=== PATIENT | male | born 1935 | race Caucasian/White ===

== ENCOUNTER 2020-01-13 12:31 | Observation (INO) ==
[2020-01-13] MEDS ORDERED: Ringers Solution, Lactated 1,000 ML IVC SCH (13:00)
[2020-01-13] MEDS ORDERED: CeFAZolin Syr 2,000MG/20 ML 2,000 MG/20 ML SYRINGE IVPB ONE (13:00)
[2020-01-13] MEDS ORDERED: Acetaminophen IV 1,000 MG/100 ML BAG IVPB ONE (13:28)
[2020-01-13] MEDS ORDERED: *HR* OxyCODONE Immed Rel 5 MG TABLET PO PRN ×2 (13:28→20:31)
[2020-01-13] MEDS ORDERED: Ondansetron 4 MG/2 ML VIAL IVP ONE (13:28)
[2020-01-13] MEDS ORDERED: *HR* HYDROmorphone PF 0.5 MG/0.5 ML SYRINGE IVP PRN (13:28)
[2020-01-13] MEDS ORDERED: *HR* Metoprolol 5 MG/5 ML VIAL IVP PRN (13:28)
[2020-01-13] MEDS ORDERED: *HR* Promethazine 25 MG/ML VIAL IVP PRN (13:28)
[2020-01-13] MEDS ORDERED: *HR* Midazolam HCl 2 MG/2 ML VIAL ONE (13:46)
[2020-01-13] MEDS ORDERED: *HR* Propofol 200 MG/20 ML VIAL IVP ONE (13:46)
[2020-01-13] MEDS ORDERED: *HR* FentaNYL (PF) 100 MCG/2 ML VIAL ONE (13:46)
[2020-01-13] MEDS ORDERED: *HR* Rocuronium Bromide 50 MG/5 ML VIAL ONE (13:53)
[2020-01-13] MEDS ORDERED: Lidocaine HCL 4 ML Topical Solution (Laryng-O-Jet Kit Sterile Pak) TP ONE (13:53)
[2020-01-13] MEDS ORDERED: Ondansetron 4 MG/2 ML VIAL ONE (13:53)
[2020-01-13] MEDS ORDERED: Lidocaine -MPF 2% 2 ML VIAL ONE (13:53)
[2020-01-13] MEDS ORDERED: *HR* PHENYLEPHRINE 1,000 MCG/10 ML SYRINGE IVP ONE (16:00)
[2020-01-13] MEDS ORDERED: Dexamethasone 4 MG/ML VIAL ONE (16:06)
[2020-01-13] MEDS ORDERED: *HR* Labetalol 20 MG/4 ML SYRINGE IVP ONE ×2 (16:21→18:21)
[2020-01-13] MEDS ORDERED: *HR* Labetalol 20 MG/4 ML SYRINGE IVP PRN (18:25)
[2020-01-13] MEDS ORDERED: Ondansetron 4 MG/2 ML VIAL IVP PRN ×2 (20:33→20:53)
[2020-01-13] MEDS ORDERED: 0.9 % Sodium Chloride 1,000 ML IVC SCH ×2 (20:45→21:00)
[2020-01-13] MEDS ORDERED: D5% in 0.45% NACL 1,000 ML IVC SCH (20:48)
[2020-01-13] MEDS: *HR* OxyCODONE Immed Rel 5 MG TABLET PO PRN (21:24)
[2020-01-14] MEDS: *HR* OxyCODONE Immed Rel 5 MG TABLET PO PRN ×2 (03:57→12:46)
[2020-01-14] MEDS ORDERED: *HR* Heparin 5,000 UNIT/ML VIAL SQ SCH ×2 (06:00)
[2020-01-14] MEDS ORDERED: Ascorbic Acid 500 MG TABLET PO SCH (09:00)
[2020-01-14] MEDS ORDERED: atenoloL 50 MG TABLET PO SCH ×2 (09:00)
[2020-01-14 12:31] VITALS: BP 138/76
== END 2020-01-14 16:21 | disposition home or self-care (01) ==
LOC: 2NNU 12:31 → SAMDAY 12:31
PROVIDERS: ADMIT Surgery; ATTEND Surgery

== ENCOUNTER 2020-01-23 21:44 | Inpatient (IN) ==
[2020-01-23] MEDS ORDERED: Isovue-370 500 ML BOTTLE IVP ONE (21:56)
[2020-01-23 23:24] LABS: Prothrombin Time 11.4 Seconds (9.4-12.1)
[2020-01-23 23:27] LABS: Activated Partial Thrombo Time 32.4 Seconds (26.0-36.0)
[2020-01-23 23:28] LABS: Basophils # 0.1 K/mcL (0.0-0.2); Basophils % 0.6 %; Eosinophils # 0.1 K/mcL (0.0-0.6); Eosinophils % 0.7 %; Hematocrit 46.9 % (37.5-50.1); Hemoglobin 14.8 g/dL (12.9-16.9); Immature Granulocytes % 1.3 % (0-4); Lymphocytes # 0.9 K/mcL (0.6-4.6); Lymphocytes % 7.4 %; Mean Corpuscular HGB Conc 31.6 g/dL (31.6-35.5); Mean Corpuscular Hemoglobin 29.3 pg (28.0-33.3); Mean Corpuscular Volume 92.9 fL (83.0-100.0); Mean Platelet Volume 9.1 fL (9.4-12.4); Monocytes # 1.2 K/mcL (0.0-1.3); Monocytes % 9.7 %; Neutrophils # 9.8 K/mcL (1.6-8.9); Platelet Count 323 K/mcL (140-400); Red Blood Count 5.05 M/mcL (4.19-5.50); Red Cell Distribution Width 16.2 % (11.5-14.5); Segmented Neutrophils % 80.3 %; White Blood Count 12.2 K/mcL (4.3-11.1)
[2020-01-23 23:38] LABS: BUN/Creatinine Ratio 45 (6-26); Blood Urea Nitrogen 48 mg/dL (8-23); Calcium 9.1 mg/dL (8.6-10.3); Carbon Dioxide 19 mEq/L (23-29); Chloride 105 mEq/L (98-107); Glucose 101 mg/dL (70-105); Osmolality,Calculated 299 (280-300); Potassium 4.5 mEq/L (3.5-5.1); Sodium 138 mEq/L (136-145); eGFR For African Americans > 60 (> 60); eGFR For Non-African Americans > 60 (> 60)
[2020-01-24] MEDS ORDERED: 0.9 % Sodium Chloride 1,000 ML IV ONE (00:31)
[2020-01-24 00:38] LABS: VBG HCO3 23 mEq/L (21-27); VBG PCO2 46 mmHg (41-51); VBG PH 7.31 pH Units (7.32-7.42); VBG PO2 53 mmHg (25-50)
[2020-01-24 01:11] LABS: Bacteria,Urine Few per hpf (None-Few); Bilirubin,Urine Small (Negative); Blood,Urine Negative (Negative); Clarity,Urine Clear (Clear); Color,Urine Yellow (Yellow); Glucose,Urine (UA) Normal (Normal); Hyaline Casts,Urine Few per lpf (None Seen); Ketones,Urine 40 mg/dL (Negative); Leukocyte Esterase,Urine Negative (Negative); Mucus,Urine Few per lpf (None-Few); Nitrite,Urine Negative (Negative); Protein,Urine 30 mg/dL (Neg-Trace); RBC,Urine 0-3 per hpf (0-3); Specific Gravity,Urine > 1.030 (1.010-1.025); Sperm,Urine Present (None Seen)
[2020-01-24] MEDS ORDERED: Lidocaine/EPI 1:100k 1% 30 ML VIAL INFILT ONE (01:21)
[2020-01-24 01:49] LABS: Alanine Aminotransferase 35 Units/L (7-52); Albumin 3.5 g/dL (3.5-5.7); Albumin/Globulin Ratio 1.4 (1.1-2.2); Alkaline Phosphatase 56 Units/L (34-104); Aspartate Amino Transferase 27 Units/L (13-39); Bilirubin,Indirect 1.7 mg/dL (0.0-1.0); Bilirubin,Total 2.7 mg/dL (0.3-1.0); Globulin 2.5 g/dL (2.4-3.5); Lipase 17 Units/L (11-82)
[2020-01-24] MEDS ORDERED: Naloxone 0.4 MG/ML INJ IVP PRN (07:16)
[2020-01-24 07:58] LABS: Basophils # 0.1 K/mcL (0.0-0.2); Basophils % 0.6 %; Eosinophils # 0.1 K/mcL (0.0-0.6); Eosinophils % 0.9 %; Hematocrit 41.4 % (37.5-50.1); Hemoglobin 13.6 g/dL (12.9-16.9); Immature Granulocytes % 1.2 % (0-4); Lymphocytes % 9.7 %; Mean Corpuscular HGB Conc 32.9 g/dL (31.6-35.5); Mean Corpuscular Volume 91.2 fL (83.0-100.0); Mean Platelet Volume 9.5 fL (9.4-12.4); Monocytes # 1.1 K/mcL (0.0-1.3); Monocytes % 10.7 %; Neutrophils # 8.1 K/mcL (1.6-8.9); Platelet Count 229 K/mcL (140-400); Red Blood Count 4.54 M/mcL (4.19-5.50); Red Cell Distribution Width 16.2 % (11.5-14.5); Segmented Neutrophils % 76.9 %; White Blood Count 10.5 K/mcL (4.3-11.1)
[2020-01-24 08:07] LABS: BUN/Creatinine Ratio 43 (6-26); Blood Urea Nitrogen 42 mg/dL (8-23); Calcium 8.8 mg/dL (8.6-10.3); Carbon Dioxide 18 mEq/L (23-29); Chloride 107 mEq/L (98-107); Glucose 96 mg/dL (70-105); Osmolality,Calculated 298 (280-300); Potassium 3.9 mEq/L (3.5-5.1); Sodium 139 mEq/L (136-145); eGFR For African Americans > 60 (> 60); eGFR For Non-African Americans > 60 (> 60)
[2020-01-24 08:19] LABS: Platelet Estimate Normal (Normal)
[2020-01-24] MEDS ORDERED: *HR* Dextrose 50 % in Water (Vial) 50 ML VIAL IVP PRN (08:29)
[2020-01-24] MEDS ORDERED: D5% in Water 1,000 ML IVC PRN (08:29)
[2020-01-24] MEDS ORDERED: Dextrose Gel 15 GM/37.5 ML TUBE PO PRN ×2 (08:29)
[2020-01-24] MEDS ORDERED: *HR* Metformin 500 MG TABLET PO SCH (09:00)
[2020-01-24] MEDS: Vitamin B Complex/Vit C/Vit E 1 EACH TABLET PO SCH (09:53)
[2020-01-24] MEDS: Cholecalciferol (D-3) 1,000 UNIT (25MCG) TABLET PO SCH (09:53)
[2020-01-24] MEDS: Ascorbic Acid 500 MG TABLET PO SCH (09:53)
[2020-01-24] MEDS: atenoloL 50 MG TABLET PO SCH (09:53)
[2020-01-24] MEDS: Insulin LISPRO 300 UNITS/3 ML VIAL SQ SCH ×2 (11:49→16:25)
[2020-01-24] MEDS: Latanoprost 2.5 ML BOTTLE BOTH EYES SCH (19:24)
[2020-01-25 06:37] LABS: Basophils # 0.1 K/mcL (0.0-0.2); Basophils % 0.6 %; Eosinophils # 0.1 K/mcL (0.0-0.6); Eosinophils % 0.6 %; Hematocrit 45.5 % (37.5-50.1); Hemoglobin 14.6 g/dL (12.9-16.9); Immature Granulocytes % 1.1 % (0-4); Lymphocytes # 1.1 K/mcL (0.6-4.6); Lymphocytes % 8.8 %; Mean Corpuscular HGB Conc 32.1 g/dL (31.6-35.5); Mean Corpuscular Hemoglobin 29.2 pg (28.0-33.3); Mean Platelet Volume 9.4 fL (9.4-12.4); Monocytes % 7.9 %; Neutrophils # 10.3 K/mcL (1.6-8.9); Platelet Count 269 K/mcL (140-400); Red Cell Distribution Width 16.3 % (11.5-14.5); White Blood Count 12.7 K/mcL (4.3-11.1)
[2020-01-25 06:53] LABS: BUN/Creatinine Ratio 39 (6-26); Blood Urea Nitrogen 39 mg/dL (8-23); Calcium 9.5 mg/dL (8.6-10.3); Carbon Dioxide 21 mEq/L (23-29); Chloride 109 mEq/L (98-107); Glucose 120 mg/dL (70-105); Osmolality,Calculated 309 (280-300); Sodium 144 mEq/L (136-145); eGFR For African Americans > 60 (> 60); eGFR For Non-African Americans > 60 (> 60)
[2020-01-25 06:54] LABS: Albumin 3.7 g/dL (3.5-5.7); Albumin/Globulin Ratio 1.4 (1.1-2.2); Bilirubin,Direct 0.5 mg/dL (0.0-0.2); Bilirubin,Indirect 1.1 mg/dL (0.0-1.0); Bilirubin,Total 1.6 mg/dL (0.3-1.0); Globulin 2.6 g/dL (2.4-3.5); Total Protein 6.3 g/dL (6.4-8.9)
[2020-01-25] MEDS: Insulin LISPRO 300 UNITS/3 ML VIAL SQ SCH ×3 (09:22→16:58)
[2020-01-25] MEDS: Cholecalciferol (D-3) 1,000 UNIT (25MCG) TABLET PO SCH (09:27)
[2020-01-25] MEDS: Ascorbic Acid 500 MG TABLET PO SCH (09:27)
[2020-01-25] MEDS: atenoloL 50 MG TABLET PO SCH (09:27)
[2020-01-25] MEDS: Vitamin B Complex/Vit C/Vit E 1 EACH TABLET PO SCH (09:27)
[2020-01-25] MEDS: *HR* Heparin 5,000 UNIT/ML VIAL SQ SCH (16:58)
[2020-01-25] MEDS: Latanoprost 2.5 ML BOTTLE BOTH EYES SCH (20:20)
[2020-01-26 02:38] LABS: Basophils # 0.1 K/mcL (0.0-0.2); Basophils % 0.4 %; Eosinophils # 0.2 K/mcL (0.0-0.6); Eosinophils % 1.6 %; Hematocrit 47.4 % (37.5-50.1); Hemoglobin 15.1 g/dL (12.9-16.9); Immature Granulocytes % 1.1 % (0-4); Lymphocytes # 1.1 K/mcL (0.6-4.6); Lymphocytes % 7.9 %; Mean Corpuscular HGB Conc 31.9 g/dL (31.6-35.5); Mean Corpuscular Hemoglobin 29.8 pg (28.0-33.3); Mean Corpuscular Volume 93.5 fL (83.0-100.0); Mean Platelet Volume 9.6 fL (9.4-12.4); Monocytes % 7.1 %; Neutrophils # 11.6 K/mcL (1.6-8.9); Platelet Count 274 K/mcL (140-400); Red Blood Count 5.07 M/mcL (4.19-5.50); Red Cell Distribution Width 16.3 % (11.5-14.5); Segmented Neutrophils % 81.9 %; White Blood Count 14.1 K/mcL (4.3-11.1)
[2020-01-26 02:54] LABS: Alanine Aminotransferase 46 Units/L (7-52); Albumin 3.6 g/dL (3.5-5.7); Albumin/Globulin Ratio 1.4 (1.1-2.2); Alkaline Phosphatase 64 Units/L (34-104); Aspartate Amino Transferase 34 Units/L (13-39); BUN/Creatinine Ratio 29 (6-26); Bilirubin,Total 1.3 mg/dL (0.3-1.0); Blood Urea Nitrogen 32 mg/dL (8-23); Calcium 9.7 mg/dL (8.6-10.3); Carbon Dioxide 28 mEq/L (23-29); Chloride 106 mEq/L (98-107); Globulin 2.5 g/dL (2.4-3.5); Glucose 133 mg/dL (70-105); Osmolality,Calculated 305 (280-300); Potassium 3.8 mEq/L (3.5-5.1); Sodium 143 mEq/L (136-145); Total Protein 6.1 g/dL (6.4-8.9); eGFR For African Americans > 60 (> 60); eGFR For Non-African Americans > 60 (> 60)
[2020-01-26 02:59] LABS: Magnesium 1.9 mg/dL (1.6-2.6)
[2020-01-26] MEDS: *HR* Heparin 5,000 UNIT/ML VIAL SQ SCH ×2 (05:36→17:04)
[2020-01-26] MEDS: Insulin LISPRO 300 UNITS/3 ML VIAL SQ SCH ×3 (08:22→17:04)
[2020-01-26] MEDS: atenoloL 50 MG TABLET PO SCH (09:11)
[2020-01-26] MEDS: Psyllium 1 PACKET POWD.PACK PO SCH ×3 (09:11→20:36)
[2020-01-26] MEDS: Vitamin B Complex/Vit C/Vit E 1 EACH TABLET PO SCH (09:11)
[2020-01-26] MEDS: Ascorbic Acid 500 MG TABLET PO SCH (09:11)
[2020-01-26] MEDS: Cholecalciferol (D-3) 1,000 UNIT (25MCG) TABLET PO SCH (09:11)
[2020-01-26] MEDS: Latanoprost 2.5 ML BOTTLE BOTH EYES SCH (20:36)
[2020-01-27] MEDS: *HR* Heparin 5,000 UNIT/ML VIAL SQ SCH ×2 (05:25→18:02)
[2020-01-27 09:16] LABS: Basophils % 0.2 %; Eosinophils # 0.1 K/mcL (0.0-0.6); Eosinophils % 0.6 %; Hematocrit 44.5 % (37.5-50.1); Hemoglobin 14.4 g/dL (12.9-16.9); Immature Granulocytes % 0.9 % (0-4); Lymphocytes # 1.1 K/mcL (0.6-4.6); Lymphocytes % 6.6 %; Mean Corpuscular HGB Conc 32.4 g/dL (31.6-35.5); Mean Corpuscular Hemoglobin 29.4 pg (28.0-33.3); Mean Platelet Volume 9.2 fL (9.4-12.4); Monocytes # 1.1 K/mcL (0.0-1.3); Monocytes % 6.6 %; Neutrophils # 13.7 K/mcL (1.6-8.9); Platelet Count 274 K/mcL (140-400); Red Blood Count 4.89 M/mcL (4.19-5.50); Red Cell Distribution Width 15.9 % (11.5-14.5); Segmented Neutrophils % 85.1 %; White Blood Count 16.1 K/mcL (4.3-11.1)
[2020-01-27] MEDS: Insulin LISPRO 300 UNITS/3 ML VIAL SQ SCH ×3 (09:26→17:58)
[2020-01-27] MEDS: Psyllium 1 PACKET POWD.PACK PO SCH ×3 (09:27→19:27)
[2020-01-27] MEDS: Ascorbic Acid 500 MG TABLET PO SCH (09:31)
[2020-01-27] MEDS: atenoloL 50 MG TABLET PO SCH (09:31)
[2020-01-27] MEDS: Vitamin B Complex/Vit C/Vit E 1 EACH TABLET PO SCH (09:31)
[2020-01-27] MEDS: Cholecalciferol (D-3) 1,000 UNIT (25MCG) TABLET PO SCH (09:31)
[2020-01-27] MEDS: Latanoprost 2.5 ML BOTTLE BOTH EYES SCH (19:26)
[2020-01-28] MEDS: *HR* OxyCODONE Immed Rel 5 MG TABLET PO PRN ×2 (02:04→11:18)
[2020-01-28] MEDS: *HR* Heparin 5,000 UNIT/ML VIAL SQ SCH ×2 (05:25→17:02)
[2020-01-28] MEDS: Insulin LISPRO 300 UNITS/3 ML VIAL SQ SCH ×3 (07:27→17:02)
[2020-01-28] MEDS: Ascorbic Acid 500 MG TABLET PO SCH (07:33)
[2020-01-28] MEDS: Psyllium 1 PACKET POWD.PACK PO SCH ×2 (07:34→15:55)
[2020-01-28] MEDS: Vitamin B Complex/Vit C/Vit E 1 EACH TABLET PO SCH (07:34)
[2020-01-28] MEDS: atenoloL 50 MG TABLET PO SCH (07:34)
[2020-01-28] MEDS: Cholecalciferol (D-3) 1,000 UNIT (25MCG) TABLET PO SCH (07:34)
[2020-01-28 08:21] LABS: Mean Platelet Volume 10.4 fL (9.4-12.4)
[2020-01-28 08:23] LABS: Hemoglobin 16.2 g/dL (12.9-16.9); Mean Corpuscular HGB Conc 33.1 g/dL (31.6-35.5); Mean Corpuscular Hemoglobin 30.2 pg (28.0-33.3); Mean Corpuscular Volume 91.2 fL (83.0-100.0); Platelet Count 198 K/mcL (140-400); Red Blood Count 5.37 M/mcL (4.19-5.50); Red Cell Distribution Width 15.9 % (11.5-14.5); White Blood Count 28.6 K/mcL (4.3-11.1)
[2020-01-28 08:39] LABS: BUN/Creatinine Ratio 25 (6-26); Blood Urea Nitrogen 27 mg/dL (8-23); Calcium 9.4 mg/dL (8.6-10.3); Carbon Dioxide 24 mEq/L (23-29); Chloride 103 mEq/L (98-107); Glucose 135 mg/dL (70-105); Osmolality,Calculated 291 (280-300); Potassium 3.6 mEq/L (3.5-5.1); Sodium 137 mEq/L (136-145); eGFR For African Americans > 60 (> 60); eGFR For Non-African Americans > 60 (> 60)
[2020-01-28 11:13] VITALS: BP 161/89
[2020-01-28 11:43] LABS: Adenovirus Not Detected (Not Detect); Coronavirus 229E Not Detected (Not Detect); Coronavirus HKU1 Not Detected (Not Detect); Coronavirus NL63 Not Detected (Not Detect); Coronavirus OC43 Not Detected (Not Detect); Human Metapneumovirus Not Detected (Not Detect); Human Rhinovirus/Enterovirus Not Detected (Not Detect); Influenza A Subtype 2009 H1 Not Detected (Not Detect); Influenza B Not Detected (Not Detect); Parainfluenza Virus 1 Not Detected (Not Detect); Parainfluenza Virus 2 Not Detected (Not Detect)
[2020-01-28 11:44] LABS: Bordetella Pertussis Not Detected (Not Detect); Chlamydophila pneumoniae Not Detected (Not Detect); Mycoplasma pneumoniae Not Detected (Not Detect); Parainfluenza Virus 3 Not Detected (Not Detect); Parainfluenza Virus 4 Not Detected (Not Detect); Respiratory Syncytial Virus Not Detected (Not Detect)
== END 2020-01-28 17:56 | DRG 920 ==
LOC: EMEROOARM 21:44 → 3BNU 21:44 → SUATTDRO 01-24 07:16 → 3BNU 01-24 08:18 → SUATTDRO 01-25 12:58
PROVIDERS: ADMIT Student in an Organized Health Care Education/Training Program; ATTEND Nurse Practitioner Adult Health

== ENCOUNTER 2020-01-29 20:39 | Inpatient (IN) ==
[2020-01-29] MEDS ORDERED: Ondansetron 4 MG/2 ML VIAL IVP PRN (23:06)
[2020-01-29] MEDS ORDERED: Naloxone 0.4 MG/ML INJ IVP PRN (23:06)
[2020-01-29] MEDS ORDERED: SODIUM CHLORIDE 0.9% IVPB SCH (23:45)
[2020-01-29] MEDS ORDERED: VANCOMYCIN IVPB SCH (23:45)
[2020-01-30] MEDS ORDERED: Vancomycin 1,750 MG/517.5 ML IV.SOLN IVPB ONE
[2020-01-30] MEDS: Piperacillin/Tazobactam 3.375 GM in 0.9 % Sodium Chloride Mini Bag 100 ML IVPB SCH ×3 (00:25→21:33)
[2020-01-30] MEDS ORDERED: D5% in Water 1,000 ML IVC PRN ×3 (00:27→21:00)
[2020-01-30] MEDS ORDERED: Dextrose Gel 15 GM/37.5 ML TUBE PO PRN ×6 (00:27→21:00)
[2020-01-30] MEDS ORDERED: *HR* Heparin 5,000 UNIT/ML VIAL IVP ONE (00:27)
[2020-01-30] MEDS ORDERED: *HR* Dextrose 50 % in Water (Vial) 50 ML VIAL IVP PRN ×3 (00:27→21:00)
[2020-01-30] MEDS ORDERED: *HR* Heparin 5,000 UNIT/ML VIAL IVP PRN ×2 (00:27)
[2020-01-30] MEDS ORDERED: Heparin 25,000UNIT/250ML 1/2NS 25,000 UNIT/250 ML IV.SOLN IVC SCH (00:30)
[2020-01-30] MEDS: 0.9 % Sodium Chloride 1,000 ML IVC SCH ×2 (00:41→07:25)
[2020-01-30 01:11] LABS: Bacteria,Urine Few per hpf (None-Few); Bilirubin,Urine Small (Negative); Blood,Urine Trace (Negative); Clarity,Urine Turbid (Clear); Color,Urine Dark-Yellow (Yellow); Glucose,Urine (UA) Normal (Normal); Hyaline Casts,Urine Moderate per lpf (None Seen); Ketones,Urine Negative (Negative); Leukocyte Esterase,Urine Negative (Negative); Mucus,Urine Few per lpf (None-Few); Nitrite,Urine Negative (Negative); PH,Urine 5.5 pH Units (5.0-8.0); Protein,Urine 50 mg/dL (Neg-Trace); Specific Gravity,Urine 1.023 (1.010-1.025); Squamous Epithelial Cell,Urine Few per hpf (None-Few)
[2020-01-30 01:19] LABS: Protein/Creatinine Ratio,Urine 0.58 mg/mg (0.00-0.20); Sodium, Urine 12.3 mEq/L
[2020-01-30 02:51] LABS: Basophils % 0.2 %; Hematocrit 41.4 % (37.5-50.1); Immature Granulocytes % 0.7 % (0-4); Lymphocytes # 0.5 K/mcL (0.6-4.6); Lymphocytes % 2.7 %; Mean Corpuscular HGB Conc 31.4 g/dL (31.6-35.5); Mean Corpuscular Hemoglobin 29.5 pg (28.0-33.3); Mean Corpuscular Volume 93.9 fL (83.0-100.0); Mean Platelet Volume 10.3 fL (9.4-12.4); Monocytes % 4.8 %; Platelet Count 204 K/mcL (140-400); Red Blood Count 4.41 M/mcL (4.19-5.50); Red Cell Distribution Width 16.2 % (11.5-14.5); Segmented Neutrophils % 91.6 %; White Blood Count 19.6 K/mcL (4.3-11.1)
[2020-01-30 02:55] LABS: VBG HCO3 26 mEq/L (21-27); VBG PCO2 56 mmHg (41-51); VBG PH 7.27 pH Units (7.32-7.42); VBG PO2 97 mmHg (25-50)
[2020-01-30 03:14] LABS: Albumin 3.4 g/dL (3.5-5.7); Albumin/Globulin Ratio 1.5 (1.1-2.2); Bilirubin,Direct 0.9 mg/dL (0.0-0.2); Bilirubin,Indirect 0.9 mg/dL (0.0-1.0); Bilirubin,Total 1.8 mg/dL (0.3-1.0); Calcium 8.6 mg/dL (8.6-10.3); Globulin 2.2 g/dL (2.4-3.5); Potassium 4.4 mEq/L (3.5-5.1); Total Protein 5.6 g/dL (6.4-8.9)
[2020-01-30 03:15] LABS: Magnesium 1.6 mg/dL (1.6-2.6); Phosphorous 5.8 mg/dL (2.7-4.5)
[2020-01-30 03:18] LABS: Troponin I 0.04 ng/mL (< 0.04)
[2020-01-30 04:33] LABS: INR 1.2; Prothrombin Time 13.9 Seconds (9.4-12.1)
[2020-01-30 04:34] LABS: Heparin anti-factor XA UFH 0.42 IU/mL (0.30-0.70)
[2020-01-30 04:43] LABS: Activated Partial Thrombo Time 62.2 Seconds (26.0-36.0)
[2020-01-30] MEDS: Insulin LISPRO 300 UNITS/3 ML VIAL SQ SCH ×3 (05:29→23:30)
[2020-01-30 07:46] LABS: ABG Base Excess 1 mEq/L (-2 to 3); ABG HCO3 25 mEq/L (21-27); ABG Oxygen Saturation 97 % (95-98); ABG PCO2 38 mmHg (35-45); ABG PH 7.43 pH Units (7.32-7.45); ABG PO2 83 mmHg (85-104); ABG TCO2 26 mEq/L (20-26)
[2020-01-30] MEDS ORDERED: 0.9 % Sodium Chloride 1,000 ML IVC ONE (08:36)
[2020-01-30 08:54] LABS: Troponin I 0.04 ng/mL (< 0.04)
[2020-01-30] MEDS ORDERED: Lidocaine -MPF 1% 5 ML AMPUL INFILT ONE ×2 (09:03→16:03)
[2020-01-30] MEDS ORDERED: D10% in Water 500 ML IVC PRN ×3 (12:30→21:00)
[2020-01-30] MEDS ORDERED: 0.9 % Sodium Chloride 1,000 ML IV ONE ×2 (12:31→13:37)
[2020-01-30] MEDS ORDERED: Perflutren Lipid Microsphere 1.3 ML in 0.9 % Sodium Chloride 8.7 ML IVP PRN (13:38)
[2020-01-30] MEDS ORDERED: Insulin LISPRO 300 UNITS/3 ML VIAL SQ SCH ×2 (16:00→20:00)
[2020-01-30] MEDS ORDERED: Micafungin 100 MG in 0.9 % Sodium Chloride Mini Bag 100 ML IVPB SCH (16:00)
[2020-01-30] MEDS ORDERED: Naloxone 0.4 MG/ML INJ IVP PRN ×2 (16:03→21:00)
[2020-01-30] MEDS ORDERED: Ondansetron 4 MG/2 ML VIAL IVP PRN (16:03)
[2020-01-30] MEDS ORDERED: Heparin 1,000 UNITS/500 mL 500 ML ONE (16:32)
[2020-01-30 16:42] LABS: Basophils % 0.1 %; Hematocrit 34.6 % (37.5-50.1); Immature Granulocytes % 0.6 % (0-4); Lymphocytes # 0.4 K/mcL (0.6-4.6); Lymphocytes % 3.3 %; Mean Corpuscular HGB Conc 32.1 g/dL (31.6-35.5); Mean Corpuscular Volume 93.5 fL (83.0-100.0); Monocytes % 8.2 %; Neutrophils # 10.6 K/mcL (1.6-8.9); Platelet Count 160 K/mcL (140-400); Segmented Neutrophils % 87.8 %
[2020-01-30] MEDS ORDERED: Ipratropium 1 PUFF INHALER IH PRN ×2 (16:54→21:00)
[2020-01-30 16:55] LABS: Albumin 2.7 g/dL (3.5-5.7); Albumin/Globulin Ratio 1.3 (1.1-2.2); Bilirubin,Total 1.5 mg/dL (0.3-1.0); Calcium 7.4 mg/dL (8.6-10.3); Globulin 2.1 g/dL (2.4-3.5); Magnesium 1.5 mg/dL (1.6-2.6); Phosphorous 4.7 mg/dL (2.7-4.5); Potassium 3.6 mEq/L (3.5-5.1); Total Protein 4.8 g/dL (6.4-8.9)
[2020-01-30 16:58] LABS: Hemoglobin 11.1 g/dL (12.9-16.9)
[2020-01-30] MEDS ORDERED: Clinimix 5%-20% SOLUTION 2,000 ML with MVI, adult with vitamin K 10 ML, Sodium Acetat... IVC SCH ×3 (17:00→21:00)
[2020-01-30] MEDS ORDERED: *HR* FentaNYL (PF) 100 MCG/2 ML VIAL ONE ×2 (17:20→18:50)
[2020-01-30] MEDS ORDERED: *HR* Propofol 200 MG/20 ML VIAL IVP ONE (17:20)
[2020-01-30] MEDS ORDERED: *HR* Rocuronium Bromide 50 MG/5 ML VIAL ONE ×2 (17:21→18:56)
[2020-01-30] MEDS ORDERED: *HR* Succinylcholine 200 MG/10 ML VIAL IVP ONE (17:21)
[2020-01-30] MEDS ORDERED: *HR* Magnesium Sulfate 1 GM/2 ML VIAL ONE (17:24)
[2020-01-30] MEDS ORDERED: *HR* Vasopressin 20 UNIT/ML VIAL ONE ×2 (17:25→18:58)
[2020-01-30] MEDS ORDERED: Lidocaine -MPF 2% 2 ML VIAL ONE (17:32)
[2020-01-30] MEDS ORDERED: CefOXitin 2,000 MG VIAL ONE (17:55)
[2020-01-30] MEDS ORDERED: *HR* PHENYLEPHRINE 1,000 MCG/10 ML SYRINGE IVP ONE (18:09)
[2020-01-30] MEDS ORDERED: Albumin Human 5% 12.5 GM/250 ML IV.SOLN ONE (18:58)
[2020-01-30] MEDS ORDERED: CefOXitin 1,000 MG VIAL ONE ×2 (19:02→19:43)
[2020-01-30 19:08] LABS: Hemoglobin 10.5 g/dL (12.9-16.9)
[2020-01-30] MEDS ORDERED: *HR* HYDROMORPHONE 2 MG/ML VIAL ONE (19:52)
[2020-01-30] MEDS ORDERED: *HR* Midazolam HCl 2 MG/2 ML VIAL ONE (20:26)
[2020-01-30] MEDS ORDERED: Midazolam HCl 50 MG/100 ML IV.SOLN IVC SCH (20:45)
[2020-01-30] MEDS ORDERED: FentaNYL (PF) 1,000 MCG/100 ML IV.SOLN IVC SCH (20:45)
[2020-01-30] MEDS ORDERED: Artificial Tears SOLN 15 ML BOTTLE BOTH EYES PRN (20:59)
[2020-01-30] MEDS ORDERED: 0.9 % Sodium Chloride 1,000 ML IVC SCH ×2 (21:00→21:15)
[2020-01-30] MEDS ORDERED: Piperacillin/Tazobactam 3.375 GM in 0.9 % Sodium Chloride Mini Bag 100 ML IVPB SCH (21:00)
[2020-01-30] MEDS ORDERED: 0.9 % Sodium Chloride 2,000 ML IV ONE (21:00)
[2020-01-30] MEDS: Chlorhexidine Rinse 15 ML MOUTHWASH MM SCH (21:32)
[2020-01-30] MEDS: Midazolam HCl 50 MG/100 ML IV.SOLN IVC SCH (21:33)
[2020-01-30] MEDS: Pantoprazole 40 MG VIAL IVP SCH (21:39)
[2020-01-30] MEDS: Budesonide/Formoterol 160/4.5 1 PUFF INH IH SCH (21:52)
[2020-01-30] MEDS: Norepinephrine 4 MG/254 ML IV.SOLN IVC SCH (21:55)
[2020-01-30 21:59] LABS: ABG Base Excess -9 mEq/L (-2 to 3); ABG HCO3 18 mEq/L (21-27); ABG Oxygen Saturation 93 % (95-98); ABG PCO2 43 mmHg (35-45); ABG PH 7.24 pH Units (7.32-7.45); ABG PO2 77 mmHg (85-104); ABG TCO2 20 mEq/L (20-26); Blood Gas VT 500 cc
[2020-01-30] MEDS ORDERED: Budesonide/Formoterol 160/4.5 1 PUFF INH IH SCH (22:00)
[2020-01-30] MEDS: FentaNYL (PF) 1,000 MCG/100 ML IV.SOLN IVC SCH (22:17)
[2020-01-30 22:28] LABS: Hematocrit 31.8 % (37.5-50.1)
[2020-01-30 22:42] LABS: Calcium 6.2 mg/dL (8.6-10.3); Potassium 3.7 mEq/L (3.5-5.1)
[2020-01-30] MEDS ORDERED: Ringers Solution, Lactated 1,000 ML ONE (22:44)
[2020-01-30] MEDS ORDERED: Sodium Bicarbonate 50 MEQ/50 ML VIAL IVP ONE ×2 (22:46→23:17)
[2020-01-30] MEDS ORDERED: Sodium Bicarbonate 50 MEQ/50 ML VIAL ONE (22:46)
[2020-01-30] MEDS ORDERED: Ringers Solution, Lactated 1,000 ML IVC SCH (23:00)
[2020-01-30] MEDS: Artificial Tears SOLN 15 ML BOTTLE BOTH EYES SCH (23:16)
[2020-01-30] MEDS: Ringers Solution, Lactated 1,000 ML IVC SCH (23:30)
[2020-01-31 00:21] LABS: ABG Base Excess -3 mEq/L (-2 to 3); ABG HCO3 23 mEq/L (21-27); ABG Oxygen Saturation 95 % (95-98); ABG PCO2 42 mmHg (35-45); ABG PH 7.33 pH Units (7.32-7.45); ABG PO2 80 mmHg (85-104); ABG TCO2 24 mEq/L (20-26); Blood Gas Modality ASSIST CONTROL; Blood Gas VT 500 cc
[2020-01-31] MEDS: Ringers Solution, Lactated 1,000 ML IVC SCH ×4 (01:33→21:00)
[2020-01-31] MEDS: Norepinephrine 4 MG/254 ML IV.SOLN IVC SCH (03:54)
[2020-01-31] MEDS ORDERED: Albumin Human 5% 12.5 GM/250 ML IV.SOLN ONE (03:59)
[2020-01-31] MEDS ORDERED: Phenylephrine 10 MG in 0.9 % Sodium Chloride 250 ML IVC SCH (04:00)
[2020-01-31 04:02] LABS: ABG Base Excess -4 mEq/L (-2 to 3); ABG HCO3 22 mEq/L (21-27); ABG Oxygen Saturation 96 % (95-98); ABG PCO2 38 mmHg (35-45); ABG PH 7.36 pH Units (7.32-7.45); ABG PO2 84 mmHg (85-104); ABG TCO2 23 mEq/L (20-26); Blood Gas Modality ASSIST CONTROL; Blood Gas VT 500 cc
[2020-01-31] MEDS: Artificial Tears SOLN 15 ML BOTTLE BOTH EYES SCH ×6 (04:15→23:39)
[2020-01-31] MEDS: Insulin LISPRO 300 UNITS/3 ML VIAL SQ SCH ×6 (04:16→23:39)
[2020-01-31] MEDS ORDERED: Albumin Human 5% 12.5 GM/250 ML IV.SOLN IVPB ONE (04:17)
[2020-01-31 04:29] LABS: Basophils % 0.2 %; Hematocrit 33.9 % (37.5-50.1); Hemoglobin 10.9 g/dL (12.9-16.9); Immature Granulocytes % 0.3 % (0-4); Lymphocytes # 0.3 K/mcL (0.6-4.6); Lymphocytes % 2.4 %; Mean Corpuscular HGB Conc 32.2 g/dL (31.6-35.5); Mean Corpuscular Hemoglobin 29.4 pg (28.0-33.3); Mean Corpuscular Volume 91.4 fL (83.0-100.0); Monocytes % 7.5 %; Platelet Count 184 K/mcL (140-400); Red Blood Count 3.71 M/mcL (4.19-5.50); Red Cell Distribution Width 16.1 % (11.5-14.5); Segmented Neutrophils % 89.6 %; White Blood Count 13.7 K/mcL (4.3-11.1)
[2020-01-31 04:31] LABS: Neutrophils # 12.3 K/mcL (1.6-8.9)
[2020-01-31 04:44] LABS: Calcium 6.7 mg/dL (8.6-10.3); Magnesium 1.7 mg/dL (1.6-2.6); Phosphorous 4.1 mg/dL (2.7-4.5); Potassium 3.6 mEq/L (3.5-5.1)
[2020-01-31] MEDS: FentaNYL (PF) 1,000 MCG/100 ML IV.SOLN IVC SCH ×3 (05:00→20:45)
[2020-01-31 05:01] LABS: Poikilocytosis 1+ (Not Present)
[2020-01-31 05:02] LABS: Platelet Estimate Normal (Normal)
[2020-01-31] MEDS: Phenylephrine 20 MG in 0.9 % Sodium Chloride 250 ML IVC SCH (05:57)
[2020-01-31] MEDS: Pantoprazole 40 MG VIAL IVP SCH ×2 (05:58→17:29)
[2020-01-31] MEDS ORDERED: Famotidine 20 MG/2 ML VIAL IVP SCH (06:00)
[2020-01-31] MEDS: Vasopressin 40 UNIT in D5% in Water 100 ML IVC SCH ×2 (06:26→10:41)
[2020-01-31] MEDS: Norepinephrine 8 MG in 0.9 % Sodium Chloride 250 ML IVC SCH ×4 (06:26→23:41)
[2020-01-31] MEDS: Chlorhexidine Rinse 15 ML MOUTHWASH MM SCH ×2 (08:39→21:01)
[2020-01-31] MEDS: Piperacillin/Tazobactam 3.375 GM in 0.9 % Sodium Chloride Mini Bag 100 ML IVPB SCH ×3 (08:40→23:53)
[2020-01-31] MEDS: Micafungin 100 MG in 0.9 % Sodium Chloride Mini Bag 100 ML IVPB SCH (08:40)
[2020-01-31] MEDS ORDERED: Micafungin 100 MG in 0.9 % Sodium Chloride Mini Bag 100 ML IVPB SCH (09:00)
[2020-01-31 09:24] LABS: Bacteria,Urine Few per hpf (None-Few); Bilirubin,Urine Negative (Negative); Blood,Urine Small (Negative); Clarity,Urine Turbid (Clear); Color,Urine Yellow (Yellow); Glucose,Urine (UA) 50 mg/dL (Normal); Granular Casts,Urine Many per lpf (None Seen); Hyaline Casts,Urine Few per lpf (None Seen); Ketones,Urine Negative (Negative); Leukocyte Esterase,Urine Negative (Negative); Mucus,Urine Few per lpf (None-Few); Nitrite,Urine Negative (Negative); Protein,Urine 70 mg/dL (Neg-Trace); RBC,Urine 15-30 per hpf (0-3); Specific Gravity,Urine 1.024 (1.010-1.025); Squamous Epithelial Cell,Urine Few per hpf (None-Few)
[2020-01-31] MEDS: Budesonide/Formoterol 160/4.5 1 PUFF INH IH SCH ×2 (09:26→19:47)
[2020-01-31 09:51] LABS: Protein/Creatinine Ratio,Urine 1.32 mg/mg (0.00-0.20); Sodium, Urine 11.9 mEq/L
[2020-01-31] MEDS ORDERED: Potassium Chloride 20 MEQ, Lidocaine 1% 2 ML in 0.9 % Sodium Chloride 250 ML IVPB ONE (11:15)
[2020-01-31] MEDS: Calcium Gluconate 1gm/50mL 1 GM/50 ML BAG IVPB SCH ×2 (15:34→16:18)
[2020-01-31] MEDS ORDERED: Clinimix E 5%-15% SOLUTION 2,000 ML with MVI, adult with vitamin K 10 ML IVC SCH (17:00)
[2020-01-31] MEDS: *HR* Heparin 5,000 UNIT/ML VIAL SQ SCH (17:29)
[2020-01-31] MEDS: Midazolam HCl 50 MG/100 ML IV.SOLN IVC SCH (20:55)
[2020-02-01] MEDS: FentaNYL (PF) 1,000 MCG/100 ML IV.SOLN IVC SCH ×3 (03:20→19:35)
[2020-02-01] MEDS: Phenylephrine 20 MG in 0.9 % Sodium Chloride 250 ML IVC SCH (04:09)
[2020-02-01] MEDS: Artificial Tears SOLN 15 ML BOTTLE BOTH EYES SCH ×6 (04:09→23:42)
[2020-02-01] MEDS: Ringers Solution, Lactated 1,000 ML IVC SCH ×2 (04:09→06:23)
[2020-02-01] MEDS: Insulin LISPRO 300 UNITS/3 ML VIAL SQ SCH ×6 (04:10→23:42)
[2020-02-01 04:29] LABS: ABG Base Excess -4 mEq/L (-2 to 3); ABG HCO3 23 mEq/L (21-27); ABG Oxygen Saturation 88 % (95-98); ABG PCO2 51 mmHg (35-45); ABG PH 7.27 pH Units (7.32-7.45); ABG PO2 64 mmHg (85-104); ABG TCO2 25 mEq/L (20-26); Blood Gas Modality ASSIST CONTROL; Blood Gas VT 450 cc
[2020-02-01 05:04] LABS: Eosinophils % 0.2 %; Mean Corpuscular Volume 93.6 fL (83.0-100.0)
[2020-02-01 05:06] LABS: Basophils % 0.2 %; Hematocrit 29.2 % (37.5-50.1); Hemoglobin 9.2 g/dL (12.9-16.9); Immature Granulocytes % 0.8 % (0-4); Immature Platelets 3.1 % (1.1-6.1); Lymphocytes # 0.5 K/mcL (0.6-4.6); Lymphocytes % 3.9 %; Mean Corpuscular HGB Conc 31.5 g/dL (31.6-35.5); Mean Corpuscular Hemoglobin 29.5 pg (28.0-33.3); Mean Platelet Volume 10.3 fL (9.4-12.4); Monocytes # 1.4 K/mcL (0.0-1.3); Monocytes % 10.8 %; Neutrophils # 10.5 K/mcL (1.6-8.9); Red Blood Count 3.12 M/mcL (4.19-5.50); Red Cell Distribution Width 16.3 % (11.5-14.5); Segmented Neutrophils % 84.1 %; White Blood Count 12.5 K/mcL (4.3-11.1)
[2020-02-01 05:12] LABS: VBG Ionized Calcium 1.21 mmol/L (1.15-1.35)
[2020-02-01] MEDS: Vasopressin 40 UNIT in D5% in Water 100 ML IVC SCH (05:21)
[2020-02-01 05:23] LABS: Calcium 7.5 mg/dL (8.6-10.3); Phosphorous 3.5 mg/dL (2.7-4.5); Potassium 3.5 mEq/L (3.5-5.1)
[2020-02-01 05:31] LABS: Platelet Count 98 K/mcL (140-400)
[2020-02-01 05:32] LABS: Burr Cells 2+ (Not Present)
[2020-02-01 05:33] LABS: Poikilocytosis 1+ (Not Present)
[2020-02-01 05:34] LABS: Basophilic Stippling 1+ (Not Present); Platelet Estimate Slight Decrease (Normal)
[2020-02-01] MEDS: *HR* Heparin 5,000 UNIT/ML VIAL SQ SCH ×2 (05:39→16:35)
[2020-02-01 05:49] LABS: Albumin/Globulin Ratio 1.1 (1.1-2.2); Bilirubin,Direct 1.1 mg/dL (0.0-0.2); Bilirubin,Indirect 0.5 mg/dL (0.0-1.0); Bilirubin,Total 1.6 mg/dL (0.3-1.0); Globulin 1.9 g/dL (2.4-3.5); Total Protein 3.9 g/dL (6.4-8.9)
[2020-02-01 05:52] LABS: Activated Partial Thrombo Time 35.4 Seconds (26.0-36.0); INR 1.2; Prothrombin Time 13.1 Seconds (9.4-12.1)
[2020-02-01] MEDS: Pantoprazole 40 MG VIAL IVP SCH ×2 (06:23→16:53)
[2020-02-01] MEDS ORDERED: Calcium Gluconate 1gm/50mL 1 GM/50 ML BAG IVPB PRN (06:58)
[2020-02-01] MEDS: Budesonide/Formoterol 160/4.5 1 PUFF INH IH SCH ×2 (07:41→20:01)
[2020-02-01] MEDS: Norepinephrine 8 MG in 0.9 % Sodium Chloride 250 ML IVC SCH ×2 (09:15→17:41)
[2020-02-01] MEDS: MetroNIDAZOLE 500 MG/100 ML 500 MG/100 ML BAG IVPB SCH ×3 (09:25→23:41)
[2020-02-01] MEDS: Cefepime HCl 1,000 MG in Water for inj. (sterile) 10 ML IVP SCH ×3 (09:26→23:41)
[2020-02-01] MEDS: Chlorhexidine Rinse 15 ML MOUTHWASH MM SCH ×2 (09:26→20:51)
[2020-02-01] MEDS: Micafungin 100 MG in 0.9 % Sodium Chloride Mini Bag 100 ML IVPB SCH (09:27)
[2020-02-01] MEDS: Potassium Chloride 40 MEQ/200 ML BAG IVPB PRN ×2 (14:36→15:33)
[2020-02-01] MEDS ORDERED: Clinimix E 5%-15% SOLUTION 2,000 ML with MVI, adult with vitamin K 10 ML IVC SCH (17:00)
[2020-02-01] MEDS: Midazolam HCl 50 MG/100 ML IV.SOLN IVC SCH (20:52)
[2020-02-02] MEDS: Norepinephrine 8 MG in 0.9 % Sodium Chloride 250 ML IVC SCH (01:45)
[2020-02-02] MEDS: Artificial Tears SOLN 15 ML BOTTLE BOTH EYES SCH ×6 (03:33→23:41)
[2020-02-02] MEDS: Insulin LISPRO 300 UNITS/3 ML VIAL SQ SCH ×6 (03:33→23:41)
[2020-02-02] MEDS: FentaNYL (PF) 1,000 MCG/100 ML IV.SOLN IVC SCH ×3 (03:53→20:00)
[2020-02-02 04:07] LABS: ABG Ionized Calcium 1.31 mmol/L (1.15-1.35)
[2020-02-02 04:15] LABS: Calcium 7.9 mg/dL (8.6-10.3); Potassium 3.9 mEq/L (3.5-5.1)
[2020-02-02 04:17] LABS: Immature Granulocytes % 1.5 % (0-4); Mean Corpuscular Hemoglobin 29.3 pg (28.0-33.3)
[2020-02-02 04:19] LABS: Basophils % 0.1 %; Eosinophils # 0.1 K/mcL (0.0-0.6); Eosinophils % 0.5 %; Hematocrit 30.8 % (37.5-50.1); Hemoglobin 9.5 g/dL (12.9-16.9); Immature Platelets 4.6 % (1.1-6.1); Lymphocytes % 5.4 %; Mean Corpuscular HGB Conc 30.8 g/dL (31.6-35.5); Mean Corpuscular Volume 95.1 fL (83.0-100.0); Mean Platelet Volume 10.8 fL (9.4-12.4); Monocytes # 1.4 K/mcL (0.0-1.3); Monocytes % 9.1 %; Nucleated Red Blood Cells 0.1 /100 WBC (0); Red Blood Count 3.24 M/mcL (4.19-5.50); Red Cell Distribution Width 16.4 % (11.5-14.5); Segmented Neutrophils % 83.4 %; White Blood Count 15.6 K/mcL (4.3-11.1)
[2020-02-02 04:20] LABS: ABG Base Excess -4 mEq/L (-2 to 3); ABG HCO3 23 mEq/L (21-27); ABG Oxygen Saturation 92 % (95-98); ABG PCO2 52 mmHg (35-45); ABG PH 7.26 pH Units (7.32-7.45); ABG PO2 74 mmHg (85-104); ABG TCO2 25 mEq/L (20-26); Blood Gas Modality ASSIST CONTROL; Blood Gas VT 450 cc
[2020-02-02 04:23] LABS: Lymphocytes # 0.8 K/mcL (0.6-4.6); Platelet Count 78 K/mcL (140-400)
[2020-02-02] MEDS: Pantoprazole 40 MG VIAL IVP SCH ×2 (05:51→17:15)
[2020-02-02] MEDS: Phenylephrine 20 MG in 0.9 % Sodium Chloride 250 ML IVC SCH (05:51)
[2020-02-02] MEDS: Potassium Chloride 40 MEQ/200 ML BAG IVPB PRN (05:51)
[2020-02-02] MEDS: *HR* Heparin 5,000 UNIT/ML VIAL SQ SCH ×2 (05:52→17:14)
[2020-02-02] MEDS: Budesonide/Formoterol 160/4.5 1 PUFF INH IH SCH ×2 (07:48→20:01)
[2020-02-02] MEDS: MetroNIDAZOLE 500 MG/100 ML 500 MG/100 ML BAG IVPB SCH ×3 (08:02→23:40)
[2020-02-02] MEDS: Cefepime HCl 1,000 MG in Water for inj. (sterile) 10 ML IVP SCH ×3 (08:03→23:40)
[2020-02-02] MEDS: Chlorhexidine Rinse 15 ML MOUTHWASH MM SCH ×2 (08:04→20:30)
[2020-02-02] MEDS: Octreotide 400 MCG in 0.9 % Sodium Chloride 100 ML IVC SCH (08:36)
[2020-02-02] MEDS: Micafungin 100 MG in 0.9 % Sodium Chloride Mini Bag 100 ML IVPB SCH (08:37)
[2020-02-02] MEDS: Vancomycin 1,250 MG/262.5 ML IV.SOLN IVPB SCH (09:29)
[2020-02-02 13:06] LABS: Calcium 8.1 mg/dL (8.6-10.3); Potassium 4.4 mEq/L (3.5-5.1)
[2020-02-02] MEDS: Albumin 25% 25gram/100mL 25 GM/100 ML IV.SOLN IVC SCH ×4 (15:56→20:29)
[2020-02-02] MEDS ORDERED: Clinimix E 5%-15% SOLUTION 2,000 ML, Parenteral Amino Acid 10% 100 ML with MVI, adult ... IVC SCH (17:00)
[2020-02-02] MEDS: Vasopressin 40 UNIT in D5% in Water 100 ML IVC SCH (23:41)
[2020-02-03] MEDS: FentaNYL (PF) 1,000 MCG/100 ML IV.SOLN IVC SCH ×4 (02:46→19:59)
[2020-02-03] MEDS: Midazolam HCl 50 MG/100 ML IV.SOLN IVC SCH ×2 (03:10→19:58)
[2020-02-03] MEDS: Octreotide 400 MCG in 0.9 % Sodium Chloride 100 ML IVC SCH ×2 (03:13→08:49)
[2020-02-03] MEDS: Insulin LISPRO 300 UNITS/3 ML VIAL SQ SCH ×6 (04:05→23:11)
[2020-02-03] MEDS: Artificial Tears SOLN 15 ML BOTTLE BOTH EYES SCH ×6 (04:05→23:08)
[2020-02-03 04:13] LABS: ABG Ionized Calcium 1.35 mmol/L (1.15-1.35)
[2020-02-03 04:35] LABS: BUN/Creatinine Ratio 48 (6-26); Blood Urea Nitrogen 62 mg/dL (8-23); Calcium 8.5 mg/dL (8.6-10.3); Carbon Dioxide 21 mEq/L (23-29); Chloride 117 mEq/L (98-107); Glucose 157 mg/dL (70-105); Osmolality,Calculated 317 (280-300); Phosphorous 2.1 mg/dL (2.7-4.5); Sodium 143 mEq/L (136-145); eGFR For African Americans > 60 (> 60); eGFR For Non-African Americans 53 (> 60)
[2020-02-03 04:35] LABS: ABG Base Excess -3 mEq/L (-2 to 3); ABG HCO3 23 mEq/L (21-27); ABG Oxygen Saturation 91 % (95-98); ABG PCO2 44 mmHg (35-45); ABG PH 7.33 pH Units (7.32-7.45); ABG PO2 65 mmHg (85-104); ABG TCO2 24 mEq/L (20-26); Blood Gas VT 450 cc
[2020-02-03 05:18] LABS: Basophils % 0.2 %; Hemoglobin 7.5 g/dL (12.9-16.9); White Blood Count 6.3 K/mcL (4.3-11.1)
[2020-02-03 05:20] LABS: Eosinophils # 0.1 K/mcL (0.0-0.6); Eosinophils % 2.2 %; Hematocrit 24.1 % (37.5-50.1); Immature Granulocytes % 1.9 % (0-4); Lymphocytes # 0.4 K/mcL (0.6-4.6); Lymphocytes % 6.7 %; Mean Corpuscular HGB Conc 31.1 g/dL (31.6-35.5); Mean Corpuscular Hemoglobin 29.9 pg (28.0-33.3); Mean Platelet Volume 11.5 fL (9.4-12.4); Monocytes # 0.5 K/mcL (0.0-1.3); Monocytes % 8.4 %; Neutrophils # 5.1 K/mcL (1.6-8.9); Red Blood Count 2.51 M/mcL (4.19-5.50); Segmented Neutrophils % 80.6 %
[2020-02-03 05:21] LABS: Platelet Count 38 K/mcL (140-400)
[2020-02-03] MEDS: Potassium Phosphate 44 MEQ in 0.9 % Sodium Chloride 250 ML IVPB PRN ×2 (05:42→16:18)
[2020-02-03] MEDS: Pantoprazole 40 MG VIAL IVP SCH ×2 (05:42→17:16)
[2020-02-03] MEDS ORDERED: Furosemide 20 MG/2 ML VIAL IVP ONE ×2 (07:26→07:41)
[2020-02-03] MEDS: MetroNIDAZOLE 500 MG/100 ML 500 MG/100 ML BAG IVPB SCH ×3 (07:33→23:08)
[2020-02-03] MEDS: Cefepime HCl 1,000 MG in Water for inj. (sterile) 10 ML IVP SCH ×3 (07:34→23:07)
[2020-02-03] MEDS: Chlorhexidine Rinse 15 ML MOUTHWASH MM SCH ×2 (07:34→19:55)
[2020-02-03] MEDS: Norepinephrine 8 MG in 0.9 % Sodium Chloride 250 ML IVC SCH (07:56)
[2020-02-03 08:12] LABS: INR 1.2; Prothrombin Time 14.1 Seconds (9.4-12.1)
[2020-02-03] MEDS: Micafungin 100 MG in 0.9 % Sodium Chloride Mini Bag 100 ML IVPB SCH (08:16)
[2020-02-03] MEDS: Vancomycin 1,250 MG/262.5 ML IV.SOLN IVPB SCH (08:41)
[2020-02-03 09:38] LABS: Hematocrit 24.9 % (37.5-50.1); Hemoglobin 7.8 g/dL (12.9-16.9)
[2020-02-03] MEDS: Budesonide/Formoterol 160/4.5 1 PUFF INH IH SCH ×2 (11:21→20:21)
[2020-02-03] MEDS ORDERED: Furosemide 40 MG/4 ML VIAL IVP ONE (14:12)
[2020-02-03 14:49] LABS: Basophils % 0.1 %; Eosinophils % 1.9 %; Segmented Neutrophils % 81.3 %
[2020-02-03 14:51] LABS: Eosinophils # 0.1 K/mcL (0.0-0.6); Hematocrit 24.4 % (37.5-50.1); Hemoglobin 7.6 g/dL (12.9-16.9); Immature Granulocytes % 2.6 % (0-4); Immature Platelets 7.5 % (1.1-6.1); Lymphocytes # 0.4 K/mcL (0.6-4.6); Lymphocytes % 5.7 %; Mean Corpuscular HGB Conc 31.1 g/dL (31.6-35.5); Mean Corpuscular Hemoglobin 29.2 pg (28.0-33.3); Mean Corpuscular Volume 93.8 fL (83.0-100.0); Monocytes # 0.6 K/mcL (0.0-1.3); Monocytes % 8.4 %; Neutrophils # 5.9 K/mcL (1.6-8.9); White Blood Count 7.3 K/mcL (4.3-11.1)
[2020-02-03 15:02] LABS: Platelet Count 45 K/mcL (140-400)
[2020-02-03 15:17] LABS: BUN/Creatinine Ratio 48 (6-26); Blood Urea Nitrogen 62 mg/dL (8-23); Calcium 8.4 mg/dL (8.6-10.3); Carbon Dioxide 23 mEq/L (23-29); Chloride 116 mEq/L (98-107); Glucose 168 mg/dL (70-105); Osmolality,Calculated 317 (280-300); Potassium 3.9 mEq/L (3.5-5.1); Sodium 143 mEq/L (136-145); eGFR For African Americans > 60 (> 60); eGFR For Non-African Americans 54 (> 60)
[2020-02-03 15:53] LABS: Phosphorous 2.4 mg/dL (2.7-4.5)
[2020-02-03] MEDS ORDERED: Clinimix E 5%-15% SOLUTION 2,000 ML, Parenteral Amino Acid 10% 100 ML with MVI, adult ... IVC SCH (17:00)
[2020-02-03] MEDS: Vasopressin 40 UNIT in D5% in Water 100 ML IVC SCH (19:58)
[2020-02-04] MEDS: FentaNYL (PF) 1,000 MCG/100 ML IV.SOLN IVC SCH ×3 (03:05→17:28)
[2020-02-04] MEDS: Artificial Tears SOLN 15 ML BOTTLE BOTH EYES SCH ×5 (03:13→20:35)
[2020-02-04 03:19] LABS: Red Cell Distribution Width 15.9 % (11.5-14.5)
[2020-02-04 03:21] LABS: Hematocrit 27.4 % (37.5-50.1); Hemoglobin 8.6 g/dL (12.9-16.9); Immature Platelets 7.3 % (1.1-6.1); Mean Corpuscular HGB Conc 31.4 g/dL (31.6-35.5); Mean Corpuscular Hemoglobin 29.3 pg (28.0-33.3); Mean Corpuscular Volume 93.2 fL (83.0-100.0); Mean Platelet Volume 11.8 fL (9.4-12.4); Red Blood Count 2.94 M/mcL (4.19-5.50); White Blood Count 13.1 K/mcL (4.3-11.1)
[2020-02-04] MEDS: Insulin LISPRO 300 UNITS/3 ML VIAL SQ SCH ×5 (03:30→20:36)
[2020-02-04 03:32] LABS: ABG Ionized Calcium 1.26 mmol/L (1.15-1.35)
[2020-02-04 03:33] LABS: Platelet Count 76 K/mcL (140-400)
[2020-02-04 03:35] LABS: Lymphocytes # 0.8 K/mcL (0.6-4.6); Monocytes # 0.8 K/mcL (0.0-1.3); Neutrophils # 11.5 K/mcL (1.6-8.9); Platelet Estimate Decreased (Normal)
[2020-02-04 03:38] LABS: BUN/Creatinine Ratio 52 (6-26); Blood Urea Nitrogen 65 mg/dL (8-23); Calcium 8.4 mg/dL (8.6-10.3); Carbon Dioxide 21 mEq/L (23-29); Chloride 114 mEq/L (98-107); Glucose 167 mg/dL (70-105); Magnesium 1.7 mg/dL (1.6-2.6); Osmolality,Calculated 318 (280-300); Phosphorous 3.6 mg/dL (2.7-4.5); Sodium 143 mEq/L (136-145); eGFR For African Americans > 60 (> 60); eGFR For Non-African Americans 55 (> 60)
[2020-02-04] MEDS: Pantoprazole 40 MG VIAL IVP SCH ×2 (05:01→17:13)
[2020-02-04 05:02] LABS: ABG Base Excess -1 mEq/L (-2 to 3); ABG HCO3 24 mEq/L (21-27); ABG Oxygen Saturation 91 % (95-98); ABG PCO2 40 mmHg (35-45); ABG PH 7.38 pH Units (7.32-7.45); ABG PO2 62 mmHg (85-104); ABG TCO2 25 mEq/L (20-26); Blood Gas Modality ASSIST CONTROL; Blood Gas VT 450 cc
[2020-02-04] MEDS ORDERED: Furosemide 40 MG/4 ML VIAL IVP ONE ×3 (07:39→22:28)
[2020-02-04] MEDS: Budesonide/Formoterol 160/4.5 1 PUFF INH IH SCH ×2 (07:44→19:51)
[2020-02-04] MEDS: Piperacillin/Tazobactam 3.375 GM in 0.9 % Sodium Chloride Mini Bag 100 ML IVPB SCH (07:48)
[2020-02-04] MEDS ORDERED: Furosemide 40 MG/4 ML VIAL ONE (08:17)
[2020-02-04] MEDS: Cefepime HCl 1,000 MG in Water for inj. (sterile) 10 ML IVP SCH ×2 (08:23→15:31)
[2020-02-04] MEDS: Micafungin 100 MG in 0.9 % Sodium Chloride Mini Bag 100 ML IVPB SCH (08:23)
[2020-02-04] MEDS: MetroNIDAZOLE 500 MG/100 ML 500 MG/100 ML BAG IVPB SCH ×2 (08:23→15:31)
[2020-02-04] MEDS: Chlorhexidine Rinse 15 ML MOUTHWASH MM SCH ×2 (08:24→20:35)
[2020-02-04] MEDS: Dexmedetomidine HCl 400 MCG/100 ML MLS IVC SCH ×2 (08:25→20:35)
[2020-02-04] MEDS: Norepinephrine 8 MG in 0.9 % Sodium Chloride 250 ML IVC SCH ×2 (08:25→10:26)
[2020-02-04] MEDS ORDERED: Heparin 1,000 UNITS/500 mL 500 ML ONE (09:40)
[2020-02-04] MEDS: Octreotide 400 MCG in 0.9 % Sodium Chloride 100 ML IVC SCH ×2 (10:28→17:14)
[2020-02-04] MEDS ORDERED: Clinimix E 5%-15% SOLUTION 2,000 ML, Parenteral Amino Acid 10% 100 ML with MVI, adult ... IVC SCH (17:00)
[2020-02-04] MEDS: Vasopressin 40 UNIT in D5% in Water 100 ML IVC SCH (17:27)
[2020-02-04] MEDS: Midazolam HCl 50 MG/100 ML IV.SOLN IVC SCH (20:31)
[2020-02-04 20:34] LABS: BUN/Creatinine Ratio 50 (6-26); Blood Urea Nitrogen 66 mg/dL (8-23); Calcium 8.6 mg/dL (8.6-10.3); Carbon Dioxide 24 mEq/L (23-29); Chloride 109 mEq/L (98-107); Glucose 245 mg/dL (70-105); Magnesium 2.2 mg/dL (1.6-2.6); Osmolality,Calculated 317 (280-300); Phosphorous 3.6 mg/dL (2.7-4.5); Potassium 3.7 mEq/L (3.5-5.1); Sodium 140 mEq/L (136-145); eGFR For African Americans > 60 (> 60); eGFR For Non-African Americans 52 (> 60)
[2020-02-04] MEDS: Potassium Chloride 40 MEQ/200 ML BAG IVPB PRN (22:37)
[2020-02-05] MEDS: Artificial Tears SOLN 15 ML BOTTLE BOTH EYES SCH ×7 (00:26→23:53)
[2020-02-05] MEDS: MetroNIDAZOLE 500 MG/100 ML 500 MG/100 ML BAG IVPB SCH ×4 (00:27→23:52)
[2020-02-05] MEDS: Cefepime HCl 1,000 MG in Water for inj. (sterile) 10 ML IVP SCH ×4 (00:27→23:52)
[2020-02-05] MEDS: Insulin LISPRO 300 UNITS/3 ML VIAL SQ SCH ×7 (00:28→23:55)
[2020-02-05] MEDS: Octreotide 400 MCG in 0.9 % Sodium Chloride 100 ML IVC SCH ×3 (02:07→21:00)
[2020-02-05] MEDS: FentaNYL (PF) 1,000 MCG/100 ML IV.SOLN IVC SCH ×3 (02:08→18:25)
[2020-02-05 03:53] LABS: Basophils # 0.1 K/mcL (0.0-0.2); Basophils % 0.7 %; Eosinophils # 0.3 K/mcL (0.0-0.6); Eosinophils % 1.7 %; Hematocrit 27.4 % (37.5-50.1); Hemoglobin 8.9 g/dL (12.9-16.9); Immature Granulocytes % 10.8 % (0-4); Lymphocytes # 0.8 K/mcL (0.6-4.6); Lymphocytes % 4.7 %; Mean Corpuscular HGB Conc 32.5 g/dL (31.6-35.5); Mean Corpuscular Hemoglobin 30.1 pg (28.0-33.3); Mean Corpuscular Volume 92.6 fL (83.0-100.0); Mean Platelet Volume 11.5 fL (9.4-12.4); Monocytes # 1.4 K/mcL (0.0-1.3); Monocytes % 8.2 %; Neutrophils # 12.3 K/mcL (1.6-8.9); Nucleated Red Blood Cells 0.1 /100 WBC (0); Platelet Count 120 K/mcL (140-400); Red Blood Count 2.96 M/mcL (4.19-5.50); Red Cell Distribution Width 15.9 % (11.5-14.5); Segmented Neutrophils % 73.9 %; White Blood Count 16.6 K/mcL (4.3-11.1)
[2020-02-05 04:03] LABS: BUN/Creatinine Ratio 54 (6-26); Blood Urea Nitrogen 72 mg/dL (8-23); Calcium 8.6 mg/dL (8.6-10.3); Carbon Dioxide 25 mEq/L (23-29); Chloride 108 mEq/L (98-107); Glucose 132 mg/dL (70-105); Magnesium 2.1 mg/dL (1.6-2.6); Osmolality,Calculated 315 (280-300); Phosphorous 3.9 mg/dL (2.7-4.5); Potassium 3.8 mEq/L (3.5-5.1); Sodium 141 mEq/L (136-145); eGFR For African Americans > 60 (> 60); eGFR For Non-African Americans 51 (> 60)
[2020-02-05 04:23] LABS: ABG Base Excess 2 mEq/L (-2 to 3); ABG HCO3 27 mEq/L (21-27); ABG Oxygen Saturation 95 % (95-98); ABG PCO2 43 mmHg (35-45); ABG PO2 74 mmHg (85-104); ABG TCO2 28 mEq/L (20-26); Blood Gas VT 450 cc
[2020-02-05 04:51] LABS: Platelet Estimate Slight Decrease (Normal)
[2020-02-05] MEDS: Potassium Chloride 40 MEQ/200 ML BAG IVPB PRN (05:34)
[2020-02-05] MEDS: Pantoprazole 40 MG VIAL IVP SCH ×2 (05:35→17:42)
[2020-02-05] MEDS: Dexmedetomidine HCl 400 MCG/100 ML MLS IVC SCH ×2 (05:58→15:26)
[2020-02-05] MEDS: Norepinephrine 8 MG in 0.9 % Sodium Chloride 250 ML IVC SCH (06:49)
[2020-02-05] MEDS: Budesonide/Formoterol 160/4.5 1 PUFF INH IH SCH ×2 (07:36→20:07)
[2020-02-05] MEDS: Micafungin 100 MG in 0.9 % Sodium Chloride Mini Bag 100 ML IVPB SCH (08:38)
[2020-02-05] MEDS: Chlorhexidine Rinse 15 ML MOUTHWASH MM SCH ×2 (08:40→21:01)
[2020-02-05] MEDS ORDERED: Clinimix E 5%-15% SOLUTION 2,000 ML, Parenteral Amino Acid 10% 100 ML with MVI, adult ... IVC SCH (17:00)
[2020-02-05] MEDS: Vasopressin 40 UNIT in D5% in Water 100 ML IVC SCH (18:23)
[2020-02-05] MEDS: Midazolam HCl 50 MG/100 ML IV.SOLN IVC SCH (20:44)
[2020-02-05 23:33] LABS: ABG Base Excess 1 mEq/L (-2 to 3); ABG HCO3 27 mEq/L (21-27); ABG Oxygen Saturation 97 % (95-98); ABG PCO2 45 mmHg (35-45); ABG PH 7.38 pH Units (7.32-7.45); ABG PO2 91 mmHg (85-104); ABG TCO2 28 mEq/L (20-26); Blood Gas Modality ASSIST CONTROL; Blood Gas VT 450 cc
[2020-02-06] MEDS: Octreotide 400 MCG in 0.9 % Sodium Chloride 100 ML IVC SCH ×3 (02:53→20:37)
[2020-02-06 04:08] LABS: ABG Base Excess 1 mEq/L (-2 to 3); ABG HCO3 26 mEq/L (21-27); ABG Oxygen Saturation 95 % (95-98); ABG PCO2 44 mmHg (35-45); ABG PH 7.39 pH Units (7.32-7.45); ABG PO2 76 mmHg (85-104); ABG TCO2 28 mEq/L (20-26); Blood Gas Modality ASSIST CONTROL; Blood Gas VT 450 cc
[2020-02-06 04:08] LABS: Hematocrit 28.1 % (37.5-50.1); Hemoglobin 8.9 g/dL (12.9-16.9); Mean Corpuscular HGB Conc 31.7 g/dL (31.6-35.5); Mean Corpuscular Hemoglobin 29.1 pg (28.0-33.3); Mean Corpuscular Volume 91.8 fL (83.0-100.0); Nucleated Red Blood Cells 0.2 /100 WBC (0); Platelet Count 161 K/mcL (140-400); Red Blood Count 3.06 M/mcL (4.19-5.50); Red Cell Distribution Width 15.8 % (11.5-14.5); White Blood Count 16.1 K/mcL (4.3-11.1)
[2020-02-06 04:28] LABS: BUN/Creatinine Ratio 59 (6-26); Blood Urea Nitrogen 69 mg/dL (8-23); Calcium 8.1 mg/dL (8.6-10.3); Carbon Dioxide 25 mEq/L (23-29); Chloride 108 mEq/L (98-107); Glucose 149 mg/dL (70-105); Magnesium 1.8 mg/dL (1.6-2.6); Osmolality,Calculated 313 (280-300); Phosphorous 3.7 mg/dL (2.7-4.5); Potassium 4.3 mEq/L (3.5-5.1); Sodium 140 mEq/L (136-145); Triglycerides 74 mg/dL (< 150); eGFR For African Americans > 60 (> 60); eGFR For Non-African Americans 59 (> 60)
[2020-02-06] MEDS: FentaNYL (PF) 1,000 MCG/100 ML IV.SOLN IVC SCH ×2 (04:42→15:08)
[2020-02-06] MEDS: Pantoprazole 40 MG VIAL IVP SCH ×2 (04:43→17:28)
[2020-02-06] MEDS: Insulin LISPRO 300 UNITS/3 ML VIAL SQ SCH ×5 (04:43→20:21)
[2020-02-06 05:08] LABS: Anisocytosis 1+ (Not Present); Eosinophils # 0.3 K/mcL (0.0-0.6); Large Platelets Present (Not Present); Lymphocytes # 1.6 K/mcL (0.6-4.6); Neutrophils # 14.2 K/mcL (1.6-8.9); Platelet Estimate Normal (Normal)
[2020-02-06] MEDS: Artificial Tears SOLN 15 ML BOTTLE BOTH EYES SCH ×6 (05:12→23:48)
[2020-02-06] MEDS: Chlorhexidine Rinse 15 ML MOUTHWASH MM SCH ×2 (07:51→20:22)
[2020-02-06] MEDS: MetroNIDAZOLE 500 MG/100 ML 500 MG/100 ML BAG IVPB SCH ×2 (07:51→17:50)
[2020-02-06] MEDS: Micafungin 100 MG in 0.9 % Sodium Chloride Mini Bag 100 ML IVPB SCH (07:52)
[2020-02-06] MEDS: Cefepime HCl 1,000 MG in Water for inj. (sterile) 10 ML IVP SCH ×2 (07:52→17:28)
[2020-02-06] MEDS: Dexmedetomidine HCl 400 MCG/100 ML MLS IVC SCH ×3 (08:14→21:43)
[2020-02-06] MEDS: Budesonide/Formoterol 160/4.5 1 PUFF INH IH SCH ×2 (09:40→19:56)
[2020-02-06] MEDS ORDERED: Furosemide 40 MG/4 ML VIAL IVP SCH (11:00)
[2020-02-06 12:34] LABS: Magnesium 1.9 mg/dL (1.6-2.6)
[2020-02-06] MEDS ORDERED: Albumin 25% 25gram/100mL 25 GM/100 ML IV.SOLN IVPB ONE (12:39)
[2020-02-06] MEDS: Norepinephrine 8 MG in 0.9 % Sodium Chloride 250 ML IVC SCH (14:58)
[2020-02-06] MEDS ORDERED: Clinimix E 5%-15% SOLUTION 2,000 ML, Parenteral Amino Acid 10% 100 ML with MVI, adult ... IVC SCH (17:00)
[2020-02-06] MEDS: Midazolam HCl 50 MG/100 ML IV.SOLN IVC SCH (20:18)
[2020-02-06] MEDS ORDERED: *HR* Heparin 5,000 UNIT/ML VIAL IVP PRN ×2 (22:35)
[2020-02-06] MEDS ORDERED: *HR* Heparin 5,000 UNIT/ML VIAL IVP ONE (22:35)
[2020-02-06] MEDS ORDERED: Heparin 25,000UNIT/250ML 1/2NS 25,000 UNIT/250 ML IV.SOLN IVC SCH (22:45)
[2020-02-06 23:10] LABS: Hematocrit 26.6 % (37.5-50.1); Hemoglobin 8.5 g/dL (12.9-16.9); Mean Corpuscular Hemoglobin 29.5 pg (28.0-33.3); Mean Corpuscular Volume 92.4 fL (83.0-100.0); Mean Platelet Volume 11.2 fL (9.4-12.4); Platelet Count 179 K/mcL (140-400); Red Blood Count 2.88 M/mcL (4.19-5.50); Red Cell Distribution Width 15.9 % (11.5-14.5); White Blood Count 14.4 K/mcL (4.3-11.1)
[2020-02-06 23:17] LABS: Heparin anti-factor XA UFH 0.06 IU/mL (0.30-0.70)
[2020-02-06 23:18] LABS: INR 1.3; Prothrombin Time 14.9 Seconds (9.4-12.1)
[2020-02-06 23:26] LABS: Activated Partial Thrombo Time 33.9 Seconds (26.0-36.0)
[2020-02-07] MEDS: Cefepime HCl 1,000 MG in Water for inj. (sterile) 10 ML IVP SCH ×3 (00:04→16:20)
[2020-02-07] MEDS: MetroNIDAZOLE 500 MG/100 ML 500 MG/100 ML BAG IVPB SCH ×3 (00:05→16:17)
[2020-02-07] MEDS: Insulin LISPRO 300 UNITS/3 ML VIAL SQ SCH ×6 (00:06→20:17)
[2020-02-07] MEDS: FentaNYL (PF) 1,000 MCG/100 ML IV.SOLN IVC SCH (00:43)
[2020-02-07] MEDS: Octreotide 400 MCG in 0.9 % Sodium Chloride 100 ML IVC SCH (03:40)
[2020-02-07] MEDS: Dexmedetomidine HCl 400 MCG/100 ML MLS IVC SCH ×3 (03:41→23:32)
[2020-02-07] MEDS: Artificial Tears SOLN 15 ML BOTTLE BOTH EYES SCH ×5 (03:43→20:16)
[2020-02-07 03:54] LABS: ABG Base Excess 3 mEq/L (-2 to 3); ABG HCO3 28 mEq/L (21-27); ABG Oxygen Saturation 97 % (95-98); ABG PCO2 45 mmHg (35-45); ABG PH 7.41 pH Units (7.32-7.45); ABG PO2 91 mmHg (85-104); ABG TCO2 30 mEq/L (20-26); Blood Gas Modality BiLevel; Blood Gas VT 450 cc
[2020-02-07] MEDS: Pantoprazole 40 MG VIAL IVP SCH ×2 (05:19→16:20)
[2020-02-07 06:14] LABS: Heparin anti-factor XA UFH 0.6 IU/mL (0.30-0.70); INR 1.4; Prothrombin Time 16.1 Seconds (9.4-12.1)
[2020-02-07 06:18] LABS: Hematocrit 26.4 % (37.5-50.1); Hemoglobin 8.3 g/dL (12.9-16.9); Mean Corpuscular HGB Conc 31.4 g/dL (31.6-35.5); Mean Corpuscular Hemoglobin 28.9 pg (28.0-33.3); Mean Platelet Volume 11.2 fL (9.4-12.4); Platelet Count 163 K/mcL (140-400); Red Blood Count 2.87 M/mcL (4.19-5.50); Red Cell Distribution Width 15.9 % (11.5-14.5); White Blood Count 14.8 K/mcL (4.3-11.1)
[2020-02-07 06:31] LABS: BUN/Creatinine Ratio 60 (6-26); Blood Urea Nitrogen 65 mg/dL (8-23); Calcium 8.3 mg/dL (8.6-10.3); Carbon Dioxide 28 mEq/L (23-29); Chloride 104 mEq/L (98-107); Glucose 217 mg/dL (70-105); Magnesium 2.1 mg/dL (1.6-2.6); Osmolality,Calculated 307 (280-300); Phosphorous 3.7 mg/dL (2.7-4.5); Potassium 4.2 mEq/L (3.5-5.1); Sodium 136 mEq/L (136-145); eGFR For African Americans > 60 (> 60); eGFR For Non-African Americans > 60 (> 60)
[2020-02-07 06:32] LABS: Activated Partial Thrombo Time 133.2 Seconds (26.0-36.0)
[2020-02-07 06:38] LABS: Eosinophils # 0.6 K/mcL (0.0-0.6); Lymphocytes # 0.6 K/mcL (0.6-4.6); Monocytes # 0.3 K/mcL (0.0-1.3); Neutrophils # 13.3 K/mcL (1.6-8.9)
[2020-02-07 06:39] LABS: Anisocytosis 1+ (Not Present); Large Platelets Present (Not Present); Platelet Estimate Normal (Normal)
[2020-02-07] MEDS: Micafungin 100 MG in 0.9 % Sodium Chloride Mini Bag 100 ML IVPB SCH (07:32)
[2020-02-07] MEDS: Chlorhexidine Rinse 15 ML MOUTHWASH MM SCH ×2 (07:32→20:15)
[2020-02-07] MEDS: Budesonide/Formoterol 160/4.5 1 PUFF INH IH SCH ×2 (07:36→21:44)
[2020-02-07] MEDS ORDERED: Isovue-370 500 ML BOTTLE IVP ONE (08:08)
[2020-02-07] MEDS: Furosemide 40 MG/4 ML VIAL IVP SCH ×2 (12:08→20:16)
[2020-02-07] MEDS: *HR* Heparin 5,000 UNIT/ML VIAL SQ SCH ×3 (12:10→21:38)
[2020-02-07] MEDS ORDERED: Clinimix E 5%-15% SOLUTION 2,000 ML, Parenteral Amino Acid 10% 100 ML with MVI, adult ... IVC SCH (17:00)
[2020-02-07 17:42] LABS: BUN/Creatinine Ratio 58 (6-26); Blood Urea Nitrogen 64 mg/dL (8-23); Calcium 8.3 mg/dL (8.6-10.3); Carbon Dioxide 28 mEq/L (23-29); Chloride 101 mEq/L (98-107); Glucose 176 mg/dL (70-105); Osmolality,Calculated 303 (280-300); Potassium 4.2 mEq/L (3.5-5.1); Sodium 135 mEq/L (136-145); eGFR For African Americans > 60 (> 60); eGFR For Non-African Americans > 60 (> 60)
[2020-02-07] MEDS: Norepinephrine 8 MG in 0.9 % Sodium Chloride 250 ML IVC SCH (19:49)
[2020-02-08] MEDS: MetroNIDAZOLE 500 MG/100 ML 500 MG/100 ML BAG IVPB SCH ×3 (00:30→15:31)
[2020-02-08] MEDS: Cefepime HCl 1,000 MG in Water for inj. (sterile) 10 ML IVP SCH ×3 (00:31→15:28)
[2020-02-08] MEDS: Insulin LISPRO 300 UNITS/3 ML VIAL SQ SCH ×6 (00:33→20:33)
[2020-02-08] MEDS: Artificial Tears SOLN 15 ML BOTTLE BOTH EYES SCH ×4 (00:33→12:21)
[2020-02-08] MEDS: Ondansetron 4 MG/2 ML VIAL IVP PRN (02:48)
[2020-02-08 03:44] LABS: Hematocrit 28.6 % (37.5-50.1); Hemoglobin 9.1 g/dL (12.9-16.9); Mean Corpuscular HGB Conc 31.8 g/dL (31.6-35.5); Mean Corpuscular Hemoglobin 29.2 pg (28.0-33.3); Mean Corpuscular Volume 91.7 fL (83.0-100.0); Mean Platelet Volume 11.4 fL (9.4-12.4); Nucleated Red Blood Cells 0.1 /100 WBC (0); Platelet Count 247 K/mcL (140-400); Red Blood Count 3.12 M/mcL (4.19-5.50); Red Cell Distribution Width 16.7 % (11.5-14.5)
[2020-02-08 04:03] LABS: Alanine Aminotransferase 13 Units/L (7-52); Albumin 2.6 g/dL (3.5-5.7); Albumin/Globulin Ratio 1.2 (1.1-2.2); Alkaline Phosphatase 74 Units/L (34-104); Aspartate Amino Transferase 22 Units/L (13-39); BUN/Creatinine Ratio 54 (6-26); Bilirubin,Indirect 0.9 mg/dL (0.0-1.0); Bilirubin,Total 1.9 mg/dL (0.3-1.0); Blood Urea Nitrogen 68 mg/dL (8-23); Calcium 8.6 mg/dL (8.6-10.3); Carbon Dioxide 28 mEq/L (23-29); Chloride 100 mEq/L (98-107); Globulin 2.2 g/dL (2.4-3.5); Glucose 150 mg/dL (70-105); Osmolality,Calculated 303 (280-300); Potassium 3.9 mEq/L (3.5-5.1); Sodium 135 mEq/L (136-145); Total Protein 4.8 g/dL (6.4-8.9); eGFR For African Americans > 60 (> 60); eGFR For Non-African Americans 55 (> 60)
[2020-02-08 04:15] LABS: Eosinophils # 0.4 K/mcL (0.0-0.6); Lymphocytes # 0.8 K/mcL (0.6-4.6); Monocytes # 0.8 K/mcL (0.0-1.3); Neutrophils # 15.6 K/mcL (1.6-8.9)
[2020-02-08 04:16] LABS: Platelet Estimate Normal (Normal)
[2020-02-08] MEDS: Potassium Chloride 40 MEQ/200 ML BAG IVPB PRN (04:28)
[2020-02-08] MEDS: Pantoprazole 40 MG VIAL IVP SCH (05:36)
[2020-02-08] MEDS: *HR* Heparin 5,000 UNIT/ML VIAL SQ SCH ×3 (05:36→20:32)
[2020-02-08] MEDS: Budesonide/Formoterol 160/4.5 1 PUFF INH IH SCH ×2 (07:45→19:27)
[2020-02-08] MEDS: Chlorhexidine Rinse 15 ML MOUTHWASH MM SCH (08:00)
[2020-02-08] MEDS: Furosemide 40 MG/4 ML VIAL IVP SCH ×2 (08:00→20:32)
[2020-02-08] MEDS: Micafungin 100 MG in 0.9 % Sodium Chloride Mini Bag 100 ML IVPB SCH (08:01)
[2020-02-08] MEDS: *HR* HYDROmorphone (PF) 1 MG/ML SYRINGE IVP PRN (15:27)
[2020-02-08] MEDS ORDERED: Clinimix E 5%-15% SOLUTION 2,000 ML, Parenteral Amino Acid 10% 100 ML with MVI, adult ... IVC SCH ×2 (17:00)
[2020-02-08] MEDS: Acetaminophen IV 1,000 MG/100 ML BAG IVPB SCH (18:20)
[2020-02-08] MEDS: Norepinephrine 8 MG in 0.9 % Sodium Chloride 250 ML IVC SCH (19:27)
[2020-02-09] MEDS: MetroNIDAZOLE 500 MG/100 ML 500 MG/100 ML BAG IVPB SCH ×2 (00:02→08:06)
[2020-02-09] MEDS: Insulin LISPRO 300 UNITS/3 ML VIAL SQ SCH ×7 (00:03→23:21)
[2020-02-09] MEDS: Cefepime HCl 1,000 MG in Water for inj. (sterile) 10 ML IVP SCH ×2 (00:03→08:07)
[2020-02-09] MEDS: Acetaminophen IV 1,000 MG/100 ML BAG IVPB SCH ×5 (00:06→23:19)
[2020-02-09 04:31] LABS: Basophils # 0.1 K/mcL (0.0-0.2); Basophils % 0.4 %; Eosinophils # 0.1 K/mcL (0.0-0.6); Eosinophils % 0.5 %; Hematocrit 28.8 % (37.5-50.1); Hemoglobin 8.9 g/dL (12.9-16.9); Lymphocytes # 1.1 K/mcL (0.6-4.6); Mean Corpuscular HGB Conc 30.9 g/dL (31.6-35.5); Mean Corpuscular Hemoglobin 28.7 pg (28.0-33.3); Mean Corpuscular Volume 92.9 fL (83.0-100.0); Mean Platelet Volume 11.5 fL (9.4-12.4); Monocytes # 1.6 K/mcL (0.0-1.3); Monocytes % 6.9 %; Neutrophils # 18.4 K/mcL (1.6-8.9); Nucleated Red Blood Cells 0.1 /100 WBC (0); Platelet Count 276 K/mcL (140-400); Red Cell Distribution Width 16.8 % (11.5-14.5); Segmented Neutrophils % 82.2 %; White Blood Count 22.5 K/mcL (4.3-11.1)
[2020-02-09 04:46] LABS: BUN/Creatinine Ratio 58 (6-26); Blood Urea Nitrogen 64 mg/dL (8-23); Calcium 8.5 mg/dL (8.6-10.3); Carbon Dioxide 28 mEq/L (23-29); Chloride 99 mEq/L (98-107); Glucose 152 mg/dL (70-105); Magnesium 1.9 mg/dL (1.6-2.6); Osmolality,Calculated 303 (280-300); Phosphorous 4.2 mg/dL (2.7-4.5); Potassium 3.6 mEq/L (3.5-5.1); Sodium 136 mEq/L (136-145); eGFR For African Americans > 60 (> 60); eGFR For Non-African Americans > 60 (> 60)
[2020-02-09] MEDS: *HR* Heparin 5,000 UNIT/ML VIAL SQ SCH ×3 (05:43→19:43)
[2020-02-09] MEDS: Budesonide/Formoterol 160/4.5 1 PUFF INH IH SCH ×2 (07:28→22:29)
[2020-02-09] MEDS: Furosemide 40 MG/4 ML VIAL IVP SCH ×2 (08:06→19:43)
[2020-02-09] MEDS: Pantoprazole 40 MG VIAL IVP SCH (08:07)
[2020-02-09] MEDS: Norepinephrine 8 MG in 0.9 % Sodium Chloride 250 ML IVC SCH (08:25)
[2020-02-09] MEDS: Micafungin 100 MG in 0.9 % Sodium Chloride Mini Bag 100 ML IVPB SCH (09:32)
[2020-02-09] MEDS: Dexmedetomidine HCl 400 MCG/100 ML MLS IVC SCH (10:38)
[2020-02-09] MEDS ORDERED: Isovue-370 500 ML BOTTLE IVP ONE ×2 (12:02→12:05)
[2020-02-09 13:17] LABS: Amylase 60 Units/L (29-103); Lipase 56 Units/L (11-82)
[2020-02-09] MEDS: Vancomycin 1,250 MG/262.5 ML IV.SOLN IVPB SCH (13:30)
[2020-02-09] MEDS ORDERED: Piperacillin/Tazobactam 3.375 GM in 0.9 % Sodium Chloride Mini Bag 100 ML IVPB SCH (16:00)
[2020-02-09] MEDS: Metoclopramide 10 MG/2 ML VIAL IVP SCH ×2 (16:38→23:20)
[2020-02-09] MEDS: Meropenem 1,000 MG in 0.9 % Sodium Chloride Mini Bag 100 ML IVPB SCH ×2 (16:38→23:19)
[2020-02-09] MEDS ORDERED: Clinimix E 5%-15% SOLUTION 2,000 ML, Parenteral Amino Acid 10% 100 ML with MVI, adult ... IVC SCH (17:00)
[2020-02-09] MEDS ORDERED: *HR* Metoprolol 5 MG/5 ML VIAL IVP PRN (17:27)
[2020-02-09 19:39] LABS: RBC,Pleural Fluid < 2000 RBC/mcL
[2020-02-09 19:49] LABS: Appearance of Pleural Fl Hazy (Clear)
[2020-02-09 20:00] LABS: Amylase,Pleural Fluid 23 Units/L (No Ref Range); Glucose,Pleural Fluid 183 mg/dL (No Ref Range); LDH,Pleural Fluid 143 Units/L (No Ref Range); Total Protein,Pleural Fluid < 3.0 g/dL
[2020-02-10] MEDS: Insulin LISPRO 300 UNITS/3 ML VIAL SQ SCH ×6 (03:17→23:49)
[2020-02-10 04:06] LABS: Basophils # 0.1 K/mcL (0.0-0.2); Basophils % 0.6 %; Eosinophils # 0.3 K/mcL (0.0-0.6); Eosinophils % 1.7 %; Hematocrit 28.4 % (37.5-50.1); Hemoglobin 8.8 g/dL (12.9-16.9); Immature Granulocytes % 4.6 % (0-4); Lymphocytes # 0.7 K/mcL (0.6-4.6); Mean Corpuscular Hemoglobin 28.7 pg (28.0-33.3); Mean Corpuscular Volume 92.5 fL (83.0-100.0); Mean Platelet Volume 11.3 fL (9.4-12.4); Monocytes # 1.5 K/mcL (0.0-1.3); Monocytes % 8.4 %; Neutrophils # 14.5 K/mcL (1.6-8.9); Platelet Count 352 K/mcL (140-400); Red Blood Count 3.07 M/mcL (4.19-5.50); Red Cell Distribution Width 17.2 % (11.5-14.5); Segmented Neutrophils % 80.7 %; White Blood Count 17.9 K/mcL (4.3-11.1)
[2020-02-10 04:08] LABS: INR 1.3; Prothrombin Time 14.9 Seconds (9.4-12.1)
[2020-02-10 04:23] LABS: BUN/Creatinine Ratio 55 (6-26); Blood Urea Nitrogen 62 mg/dL (8-23); Calcium 8.8 mg/dL (8.6-10.3); Carbon Dioxide 30 mEq/L (23-29); Chloride 97 mEq/L (98-107); Glucose 139 mg/dL (70-105); Magnesium 1.6 mg/dL (1.6-2.6); Osmolality,Calculated 302 (280-300); Potassium 3.1 mEq/L (3.5-5.1); Sodium 136 mEq/L (136-145); eGFR For African Americans > 60 (> 60); eGFR For Non-African Americans > 60 (> 60)
[2020-02-10] MEDS: Potassium Chloride 40 MEQ/200 ML BAG IVPB PRN ×3 (04:34→23:55)
[2020-02-10] MEDS: Acetaminophen IV 1,000 MG/100 ML BAG IVPB SCH ×4 (05:50→23:49)
[2020-02-10] MEDS: *HR* Heparin 5,000 UNIT/ML VIAL SQ SCH ×3 (05:57→22:14)
[2020-02-10] MEDS: Meropenem 1,000 MG in 0.9 % Sodium Chloride Mini Bag 100 ML IVPB SCH ×3 (07:38→23:48)
[2020-02-10] MEDS: Pantoprazole 40 MG VIAL IVP SCH (07:39)
[2020-02-10] MEDS: Furosemide 40 MG/4 ML VIAL IVP SCH ×2 (07:39→20:10)
[2020-02-10] MEDS: Micafungin 100 MG in 0.9 % Sodium Chloride Mini Bag 100 ML IVPB SCH (07:39)
[2020-02-10] MEDS: Metoclopramide 10 MG/2 ML VIAL IVP SCH ×2 (07:40→16:24)
[2020-02-10] MEDS: Budesonide/Formoterol 160/4.5 1 PUFF INH IH SCH ×2 (08:02→19:49)
[2020-02-10 10:51] LABS: Creatinine,Urine 11 mg/dL
[2020-02-10 10:56] LABS: Bilirubin,Urine Small (Negative); Blood,Urine Moderate (Negative); Clarity,Urine Clear (Clear); Color,Urine Yellow (Yellow); Glucose,Urine (UA) 200 mg/dL (Normal); Ketones,Urine Negative (Negative); Leukocyte Esterase,Urine Negative (Negative); Nitrite,Urine Negative (Negative); PH,Urine 8.5 pH Units (5.0-8.0); Protein,Urine >=600 mg/dL (Neg-Trace); RBC,Urine TNTC per hpf (0-3); Specific Gravity,Urine 1.019 (1.010-1.025); Urobilinogen,Urine Normal (Normal); WBC,Urine 50-100 per hpf (0-3)
[2020-02-10 11:05] LABS: Bilirubin,Urine Negative (Negative); Blood,Urine Negative (Negative); Clarity,Urine Clear (Clear); Color,Urine Light-Yellow (Yellow); Glucose,Urine (UA) Normal (Normal); Ketones,Urine Negative (Negative); Leukocyte Esterase,Urine Negative (Negative); Nitrite,Urine Negative (Negative); Protein,Urine Trace mg/dL (Neg-Trace); Specific Gravity,Urine 1.013 (1.010-1.025); Urobilinogen,Urine Normal (Normal)
[2020-02-10] MEDS: Vancomycin 1,250 MG/262.5 ML IV.SOLN IVPB SCH (13:30)
[2020-02-10] MEDS ORDERED: Clinimix E 5%-15% SOLUTION 2,000 ML, Parenteral Amino Acid 10% 100 ML with MVI, adult ... IVC SCH ×2 (17:00)
[2020-02-11] MEDS: Insulin LISPRO 300 UNITS/3 ML VIAL SQ SCH ×6 (04:09→23:21)
[2020-02-11 04:53] LABS: Albumin 2.9 g/dL (3.5-5.7); Albumin/Globulin Ratio 1.1 (1.1-2.2); Bilirubin,Indirect 0.9 mg/dL (0.0-1.0); Bilirubin,Total 1.9 mg/dL (0.3-1.0); Globulin 2.7 g/dL (2.4-3.5); Total Protein 5.6 g/dL (6.4-8.9)
[2020-02-11 04:54] LABS: BUN/Creatinine Ratio 56 (6-26); Blood Urea Nitrogen 55 mg/dL (8-23); Calcium 8.8 mg/dL (8.6-10.3); Carbon Dioxide 30 mEq/L (23-29); Chloride 99 mEq/L (98-107); Glucose 170 mg/dL (70-105); Magnesium 1.9 mg/dL (1.6-2.6); Osmolality,Calculated 303 (280-300); Phosphorous 2.7 mg/dL (2.7-4.5); Potassium 3.9 mEq/L (3.5-5.1); Sodium 137 mEq/L (136-145); eGFR For African Americans > 60 (> 60); eGFR For Non-African Americans > 60 (> 60)
[2020-02-11] MEDS: *HR* Heparin 5,000 UNIT/ML VIAL SQ SCH ×3 (06:22→22:12)
[2020-02-11] MEDS: Acetaminophen IV 1,000 MG/100 ML BAG IVPB SCH ×4 (06:23→23:19)
[2020-02-11] MEDS: Budesonide/Formoterol 160/4.5 1 PUFF INH IH SCH ×2 (08:09→19:50)
[2020-02-11] MEDS: Pantoprazole 40 MG VIAL IVP SCH (09:18)
[2020-02-11] MEDS: Furosemide 40 MG/4 ML VIAL IVP SCH ×3 (09:18→19:53)
[2020-02-11] MEDS: Micafungin 100 MG in 0.9 % Sodium Chloride Mini Bag 100 ML IVPB SCH (09:18)
[2020-02-11] MEDS: Potassium Phosphate 44 MEQ in 0.9 % Sodium Chloride 250 ML IVPB PRN (09:18)
[2020-02-11] MEDS: Meropenem 1,000 MG in 0.9 % Sodium Chloride Mini Bag 100 ML IVPB SCH ×3 (09:19→23:20)
[2020-02-11] MEDS: *HR* HYDROmorphone (PF) 1 MG/ML SYRINGE IVP PRN (09:19)
[2020-02-11] MEDS: Vancomycin 1,250 MG/262.5 ML IV.SOLN IVPB SCH (13:32)
[2020-02-11 13:51] LABS: Basophils # 0.1 K/mcL (0.0-0.2); Basophils % 0.6 %; Eosinophils # 0.3 K/mcL (0.0-0.6); Eosinophils % 1.5 %; Hematocrit 28.6 % (37.5-50.1); Hemoglobin 9.1 g/dL (12.9-16.9); Immature Granulocytes % 2.4 % (0-4); Lymphocytes # 1.1 K/mcL (0.6-4.6); Mean Corpuscular HGB Conc 31.8 g/dL (31.6-35.5); Mean Corpuscular Hemoglobin 30.5 pg (28.0-33.3); Mean Platelet Volume 11.1 fL (9.4-12.4); Monocytes # 1.7 K/mcL (0.0-1.3); Monocytes % 9.4 %; Neutrophils # 14.6 K/mcL (1.6-8.9); Platelet Count 441 K/mcL (140-400); Red Blood Count 2.98 M/mcL (4.19-5.50); Red Cell Distribution Width 17.7 % (11.5-14.5); Segmented Neutrophils % 80.1 %; White Blood Count 18.3 K/mcL (4.3-11.1)
[2020-02-11] MEDS ORDERED: Clinimix E 5%-15% SOLUTION 2,000 ML, Parenteral Amino Acid 10% 100 ML with MVI, adult ... IVC SCH (17:00)
[2020-02-11 17:55] LABS: ABG Base Excess 6 mEq/L (-2 to 3); ABG HCO3 32 mEq/L (21-27); ABG Oxygen Saturation 97 % (95-98); ABG PCO2 50 mmHg (35-45); ABG PH 7.42 pH Units (7.32-7.45); ABG PO2 93 mmHg (85-104); ABG TCO2 33 mEq/L (20-26)
[2020-02-11] MEDS: *HR* Metoprolol 5 MG/5 ML VIAL IVP PRN (18:26)
[2020-02-11 19:04] LABS: Fluid Source for Triglycerides PLEURAL FLUID
[2020-02-11] MEDS: Dexmedetomidine HCl 400 MCG/100 ML MLS IVC SCH (19:52)
[2020-02-12 00:52] LABS: Fluid Source for Albumin PLEURAL
[2020-02-12 04:12] LABS: Basophils # 0.1 K/mcL (0.0-0.2); Basophils % 0.5 %; Eosinophils # 0.4 K/mcL (0.0-0.6); Eosinophils % 1.8 %; Hematocrit 30.3 % (37.5-50.1); Hemoglobin 9.3 g/dL (12.9-16.9); Lymphocytes # 0.7 K/mcL (0.6-4.6); Lymphocytes % 3.3 %; Mean Corpuscular HGB Conc 30.7 g/dL (31.6-35.5); Mean Corpuscular Hemoglobin 29.7 pg (28.0-33.3); Mean Corpuscular Volume 96.8 fL (83.0-100.0); Mean Platelet Volume 11.3 fL (9.4-12.4); Monocytes # 1.7 K/mcL (0.0-1.3); Monocytes % 8.5 %; Neutrophils # 17.1 K/mcL (1.6-8.9); Platelet Count 454 K/mcL (140-400); Red Blood Count 3.13 M/mcL (4.19-5.50); Red Cell Distribution Width 17.9 % (11.5-14.5); Segmented Neutrophils % 83.9 %; White Blood Count 20.4 K/mcL (4.3-11.1)
[2020-02-12 04:32] LABS: BUN/Creatinine Ratio 60 (6-26); Blood Urea Nitrogen 53 mg/dL (8-23); Calcium 8.9 mg/dL (8.6-10.3); Carbon Dioxide 33 mEq/L (23-29); Chloride 98 mEq/L (98-107); Glucose 156 mg/dL (70-105); Magnesium 1.8 mg/dL (1.6-2.6); Osmolality,Calculated 304 (280-300); Phosphorous 3.9 mg/dL (2.7-4.5); Potassium 3.9 mEq/L (3.5-5.1); Sodium 138 mEq/L (136-145); eGFR For African Americans > 60 (> 60); eGFR For Non-African Americans > 60 (> 60)
[2020-02-12] MEDS: Insulin LISPRO 300 UNITS/3 ML VIAL SQ SCH ×5 (05:17→20:25)
[2020-02-12] MEDS: *HR* Heparin 5,000 UNIT/ML VIAL SQ SCH ×3 (06:13→20:24)
[2020-02-12] MEDS: Acetaminophen IV 1,000 MG/100 ML BAG IVPB SCH ×2 (06:13→19:53)
[2020-02-12] MEDS ORDERED: *HR* Atropine Sulfate 1 MG/10 ML SYRINGE ONE (08:47)
[2020-02-12 09:01] LABS: Triglycerides,Body Fluid 16 mg/dL
[2020-02-12] MEDS ORDERED: Isovue-370 500 ML BOTTLE IVP ONE (09:08)
[2020-02-12] MEDS: FentaNYL (PF) 1,000 MCG/100 ML IV.SOLN IVC SCH ×3 (09:30→20:49)
[2020-02-12 09:33] LABS: Basophils # 0.1 K/mcL (0.0-0.2); Basophils % 0.6 %; Eosinophils # 0.3 K/mcL (0.0-0.6); Eosinophils % 1.5 %; Hematocrit 29.8 % (37.5-50.1); Immature Granulocytes % 4.6 % (0-4); Lymphocytes # 3.4 K/mcL (0.6-4.6); Lymphocytes % 14.7 %; Mean Corpuscular HGB Conc 30.2 g/dL (31.6-35.5); Mean Corpuscular Hemoglobin 30.6 pg (28.0-33.3); Mean Corpuscular Volume 101.4 fL (83.0-100.0); Mean Platelet Volume 11.9 fL (9.4-12.4); Monocytes # 1.8 K/mcL (0.0-1.3); Neutrophils # 16.1 K/mcL (1.6-8.9); Nucleated Red Blood Cells 0.6 /100 WBC (0); Platelet Count 323 K/mcL (140-400); Red Blood Count 2.94 M/mcL (4.19-5.50); Red Cell Distribution Width 17.9 % (11.5-14.5); Segmented Neutrophils % 70.6 %; White Blood Count 22.7 K/mcL (4.3-11.1)
[2020-02-12 09:39] LABS: INR 1.1; Prothrombin Time 12.6 Seconds (9.4-12.1)
[2020-02-12 09:45] LABS: Activated Partial Thrombo Time 32.9 Seconds (26.0-36.0)
[2020-02-12] MEDS: Phenylephrine 10 MG in 0.9 % Sodium Chloride 250 ML IVC SCH ×4 (09:50→22:43)
[2020-02-12 09:55] LABS: Alanine Aminotransferase 23 Units/L (7-52); Albumin 2.8 g/dL (3.5-5.7); Alkaline Phosphatase 141 Units/L (34-104); Aspartate Amino Transferase 37 Units/L (13-39); BUN/Creatinine Ratio 51 (6-26); Bilirubin,Total 1.6 mg/dL (0.3-1.0); Blood Urea Nitrogen 56 mg/dL (8-23); Calcium 9.1 mg/dL (8.6-10.3); Carbon Dioxide 32 mEq/L (23-29); Chloride 97 mEq/L (98-107); Globulin 2.8 g/dL (2.4-3.5); Glucose 212 mg/dL (70-105); Osmolality,Calculated 318 (280-300); Potassium 4.2 mEq/L (3.5-5.1); Sodium 143 mEq/L (136-145); Total Protein 5.6 g/dL (6.4-8.9); eGFR For African Americans > 60 (> 60); eGFR For Non-African Americans > 60 (> 60)
[2020-02-12 10:36] LABS: ABG Base Excess 6 mEq/L (-2 to 3); ABG HCO3 32 mEq/L (21-27); ABG Oxygen Saturation 99 % (95-98); ABG PCO2 51 mmHg (35-45); ABG PO2 120 mmHg (85-104); ABG TCO2 33 mEq/L (20-26); Blood Gas Modality ASSIST CONTROL; Blood Gas VT 450 cc
[2020-02-12] MEDS: Budesonide/Formoterol 160/4.5 1 PUFF INH IH SCH ×2 (10:48→19:37)
[2020-02-12] MEDS: Micafungin 100 MG in 0.9 % Sodium Chloride Mini Bag 100 ML IVPB SCH (11:51)
[2020-02-12] MEDS: Meropenem 1,000 MG in 0.9 % Sodium Chloride Mini Bag 100 ML IVPB SCH ×2 (11:52→16:56)
[2020-02-12] MEDS: Pantoprazole 40 MG VIAL IVP SCH (11:52)
[2020-02-12] MEDS: Furosemide 40 MG/4 ML VIAL IVP SCH ×2 (11:53→20:25)
[2020-02-12] MEDS: Vancomycin 1,250 MG/262.5 ML IV.SOLN IVPB SCH (13:59)
[2020-02-12] MEDS ORDERED: Perflutren Lipid Microsphere 1.3 ML in 0.9 % Sodium Chloride 8.7 ML IVP PRN (14:01)
[2020-02-12] MEDS ORDERED: *HR* EPINEPHrine 1 MG/10 ML SYRINGE IVP ONE (14:50)
[2020-02-12] MEDS ORDERED: *HR* Atropine Sulfate 1 MG/10 ML SYRINGE IV ONE (14:50)
[2020-02-12] MEDS ORDERED: Norepinephrine 4 MG/254 ML IV.SOLN IVC ONE (14:50)
[2020-02-12] MEDS ORDERED: Sodium Bicarbonate *INFANT* 5 MEQ/10 ML SYRINGE IVP ONE (14:50)
[2020-02-12] MEDS ORDERED: Clinimix E 5%-15% SOLUTION 2,000 ML, Parenteral Amino Acid 10% 100 ML with MVI, adult ... IVC SCH (17:00)
[2020-02-12] MEDS ORDERED: Dexmedetomidine HCl 400 MCG/100 ML MLS IVC ONE (17:28)
[2020-02-12] MEDS: Dexmedetomidine HCl 400 MCG/100 ML MLS IVC SCH (17:41)
[2020-02-12] MEDS ORDERED: Artificial Tears SOLN 15 ML BOTTLE BOTH EYES PRN (23:41)
[2020-02-13] MEDS: Insulin LISPRO 300 UNITS/3 ML VIAL SQ SCH ×6 (00:37→19:34)
[2020-02-13] MEDS: Artificial Tears SOLN 15 ML BOTTLE BOTH EYES SCH ×5 (00:39→16:23)
[2020-02-13] MEDS: Phenylephrine 10 MG in 0.9 % Sodium Chloride 250 ML IVC SCH (00:39)
[2020-02-13] MEDS: Meropenem 1,000 MG in 0.9 % Sodium Chloride Mini Bag 100 ML IVPB SCH ×3 (00:39→16:26)
[2020-02-13] MEDS: Dexmedetomidine HCl 400 MCG/100 ML MLS IVC SCH ×2 (01:26→12:29)
[2020-02-13] MEDS: Phenylephrine 50 MG in 0.9 % Sodium Chloride 250 ML IVC SCH (02:22)
[2020-02-13] MEDS: FentaNYL (PF) 1,000 MCG/100 ML IV.SOLN IVC SCH ×4 (03:42→22:14)
[2020-02-13 04:38] LABS: ABG Base Excess 9 mEq/L (-2 to 3); ABG HCO3 34 mEq/L (21-27); ABG Oxygen Saturation 93 % (95-98); ABG PCO2 52 mmHg (35-45); ABG PH 7.43 pH Units (7.32-7.45); ABG PO2 66 mmHg (85-104); ABG TCO2 36 mEq/L (20-26); Blood Gas Modality ASSIST CONTROL; Blood Gas VT 450 cc
[2020-02-13 04:54] LABS: Basophils # 0.1 K/mcL (0.0-0.2); Basophils % 0.6 %; Eosinophils # 0.6 K/mcL (0.0-0.6); Eosinophils % 2.8 %; Hematocrit 26.8 % (37.5-50.1); Hemoglobin 8.1 g/dL (12.9-16.9); Immature Granulocytes % 3.9 % (0-4); Lymphocytes # 0.9 K/mcL (0.6-4.6); Lymphocytes % 4.6 %; Mean Corpuscular HGB Conc 30.2 g/dL (31.6-35.5); Mean Corpuscular Hemoglobin 29.6 pg (28.0-33.3); Mean Corpuscular Volume 97.8 fL (83.0-100.0); Mean Platelet Volume 10.9 fL (9.4-12.4); Monocytes # 1.4 K/mcL (0.0-1.3); Monocytes % 7.2 %; Neutrophils # 15.9 K/mcL (1.6-8.9); Nucleated Red Blood Cells 0.2 /100 WBC (0); Platelet Count 349 K/mcL (140-400); Red Blood Count 2.74 M/mcL (4.19-5.50); Red Cell Distribution Width 18.4 % (11.5-14.5); Segmented Neutrophils % 80.9 %; White Blood Count 19.6 K/mcL (4.3-11.1)
[2020-02-13 05:13] LABS: BUN/Creatinine Ratio 68 (6-26); Blood Urea Nitrogen 59 mg/dL (8-23); Calcium 8.7 mg/dL (8.6-10.3); Carbon Dioxide 32 mEq/L (23-29); Chloride 102 mEq/L (98-107); Glucose 111 mg/dL (70-105); Magnesium 1.8 mg/dL (1.6-2.6); Osmolality,Calculated 303 (280-300); Phosphorous 3.7 mg/dL (2.7-4.5); Potassium 3.8 mEq/L (3.5-5.1); Sodium 138 mEq/L (136-145); Triglycerides 111 mg/dL (< 150); eGFR For African Americans > 60 (> 60); eGFR For Non-African Americans > 60 (> 60)
[2020-02-13] MEDS: *HR* Heparin 5,000 UNIT/ML VIAL SQ SCH ×3 (05:54→16:26)
[2020-02-13] MEDS: Budesonide/Formoterol 160/4.5 1 PUFF INH IH SCH ×2 (07:22→19:58)
[2020-02-13] MEDS: Chlorhexidine Rinse 15 ML MOUTHWASH MM SCH ×2 (08:22→19:34)
[2020-02-13] MEDS: Micafungin 100 MG in 0.9 % Sodium Chloride Mini Bag 100 ML IVPB SCH (08:26)
[2020-02-13] MEDS: Pantoprazole 40 MG VIAL IVP SCH (08:28)
[2020-02-13] MEDS ORDERED: *HR* Midazolam HCl 5 MG/5 ML VIAL IVP ONE (08:32)
[2020-02-13] MEDS ORDERED: *HR* Midazolam HCl 2 MG/2 ML VIAL IVP PRN (08:32)
[2020-02-13] MEDS: Furosemide 40 MG/4 ML VIAL IVP SCH (08:41)
[2020-02-13] MEDS: Midazolam HCl 50 MG/100 ML IV.SOLN IVC SCH (09:04)
[2020-02-13] MEDS: Norepinephrine 4 MG/254 ML IV.SOLN IVC SCH ×2 (10:29→19:20)
[2020-02-13 10:58] LABS: VBG Ionized Calcium 1.11 mmol/L (1.15-1.35)
[2020-02-13] MEDS: Vancomycin 1,250 MG/262.5 ML IV.SOLN IVPB SCH (12:24)
[2020-02-13] MEDS ORDERED: Heparin 1,000 UNITS/500 mL 500 ML ONE (14:22)
[2020-02-13] MEDS ORDERED: Clinimix E 5%-15% SOLUTION 2,000 ML, Parenteral Amino Acid 10% 100 ML with MVI, adult ... IVC SCH (17:00)
[2020-02-13] MEDS: Potassium Chloride 40 MEQ/200 ML BAG IVPB PRN ×2 (17:04→19:05)
[2020-02-14] MEDS: *HR* Heparin 5,000 UNIT/ML VIAL SQ SCH ×2 (00:07→05:41)
[2020-02-14] MEDS: Artificial Tears SOLN 15 ML BOTTLE BOTH EYES SCH ×8 (00:08→23:05)
[2020-02-14] MEDS: Meropenem 1,000 MG in 0.9 % Sodium Chloride Mini Bag 100 ML IVPB SCH ×4 (00:08→23:05)
[2020-02-14] MEDS: Phenylephrine 50 MG in 0.9 % Sodium Chloride 250 ML IVC SCH (00:10)
[2020-02-14] MEDS: Insulin LISPRO 300 UNITS/3 ML VIAL SQ SCH ×6 (00:10→19:46)
[2020-02-14] MEDS: Dexmedetomidine HCl 400 MCG/100 ML MLS IVC SCH ×3 (00:10→23:05)
[2020-02-14] MEDS: Midazolam HCl 50 MG/100 ML IV.SOLN IVC SCH (04:08)
[2020-02-14] MEDS: FentaNYL (PF) 1,000 MCG/100 ML IV.SOLN IVC SCH ×3 (04:10→21:10)
[2020-02-14 04:19] LABS: Basophils # 0.1 K/mcL (0.0-0.2); Basophils % 0.8 %; Eosinophils # 0.7 K/mcL (0.0-0.6); Eosinophils % 4.9 %; Hematocrit 24.7 % (37.5-50.1); Hemoglobin 7.4 g/dL (12.9-16.9); Immature Granulocytes % 3.3 % (0-4); Lymphocytes % 7.4 %; Mean Corpuscular Hemoglobin 29.8 pg (28.0-33.3); Mean Corpuscular Volume 99.6 fL (83.0-100.0); Mean Platelet Volume 10.9 fL (9.4-12.4); Monocytes # 1.1 K/mcL (0.0-1.3); Monocytes % 8.6 %; Neutrophils # 9.9 K/mcL (1.6-8.9); Nucleated Red Blood Cells 0.2 /100 WBC (0); Platelet Count 262 K/mcL (140-400); Red Blood Count 2.48 M/mcL (4.19-5.50); Red Cell Distribution Width 18.9 % (11.5-14.5); White Blood Count 13.2 K/mcL (4.3-11.1)
[2020-02-14 04:30] LABS: ABG Base Excess 8 mEq/L (-2 to 3); ABG HCO3 34 mEq/L (21-27); ABG Oxygen Saturation 93 % (95-98); ABG PCO2 61 mmHg (35-45); ABG PH 7.36 pH Units (7.32-7.45); ABG PO2 73 mmHg (85-104); ABG TCO2 36 mEq/L (20-26); Blood Gas Modality AF; Blood Gas VT 500 cc
[2020-02-14 04:37] LABS: BUN/Creatinine Ratio 78 (6-26); Blood Urea Nitrogen 77 mg/dL (8-23); Calcium 8.9 mg/dL (8.6-10.3); Carbon Dioxide 32 mEq/L (23-29); Chloride 101 mEq/L (98-107); Glucose 167 mg/dL (70-105); Magnesium 2.4 mg/dL (1.6-2.6); Osmolality,Calculated 311 (280-300); Phosphorous 4.6 mg/dL (2.7-4.5); Potassium 4.5 mEq/L (3.5-5.1); Sodium 137 mEq/L (136-145); eGFR For African Americans > 60 (> 60); eGFR For Non-African Americans > 60 (> 60)
[2020-02-14] MEDS: Budesonide/Formoterol 160/4.5 1 PUFF INH IH SCH ×2 (07:27→19:27)
[2020-02-14] MEDS: Chlorhexidine Rinse 15 ML MOUTHWASH MM SCH ×2 (07:52→19:53)
[2020-02-14] MEDS: Pantoprazole 40 MG VIAL IVP SCH (07:52)
[2020-02-14] MEDS: Micafungin 100 MG in 0.9 % Sodium Chloride Mini Bag 100 ML IVPB SCH (07:52)
[2020-02-14] MEDS ORDERED: *HR* Heparin 5,000 UNIT/ML VIAL IVP PRN ×2 (09:15)
[2020-02-14] MEDS: Heparin 25,000UNIT/250ML 1/2NS 25,000 UNIT/250 ML IV.SOLN IVC SCH (10:24)
[2020-02-14] MEDS: Vancomycin 1,250 MG/262.5 ML IV.SOLN IVPB SCH (11:56)
[2020-02-14 15:39] LABS: Hematocrit 27.9 % (37.5-50.1); Hemoglobin 8.4 g/dL (12.9-16.9); Mean Corpuscular HGB Conc 30.1 g/dL (31.6-35.5); Mean Corpuscular Volume 99.6 fL (83.0-100.0); Mean Platelet Volume 10.8 fL (9.4-12.4); Platelet Count 330 K/mcL (140-400); Red Cell Distribution Width 19.1 % (11.5-14.5); White Blood Count 19.7 K/mcL (4.3-11.1)
[2020-02-14 15:48] LABS: Heparin anti-factor XA UFH 0.46 IU/mL (0.30-0.70)
[2020-02-14 15:49] LABS: Prothrombin Time 11.6 Seconds (9.4-12.1)
[2020-02-14] MEDS ORDERED: 0.9 % Sodium Chloride 250 ML ONE (15:56)
[2020-02-14] MEDS ORDERED: CLINIMIX IVC SCH (17:00)
[2020-02-14] MEDS ORDERED: [UNRECOGNIZED DRUG - OTHER] IVC SCH (17:00)
[2020-02-14] MEDS ORDERED: MVI IVC SCH (17:00)
[2020-02-14] MEDS ORDERED: PARENTERAL AMINO ACID 10% IVC SCH (17:00)
[2020-02-14] MEDS: Scopolamine Patch 1.5 MG PATCH.TD72 TD SCH (23:04)
[2020-02-15] MEDS: Insulin LISPRO 300 UNITS/3 ML VIAL SQ SCH ×7 (00:12→23:37)
[2020-02-15] MEDS: Norepinephrine 4 MG/254 ML IV.SOLN IVC SCH (02:40)
[2020-02-15 03:56] LABS: ABG Base Excess 6 mEq/L (-2 to 3); ABG HCO3 32 mEq/L (21-27); ABG Oxygen Saturation 90 % (95-98); ABG PCO2 55 mmHg (35-45); ABG PH 7.37 pH Units (7.32-7.45); ABG PO2 61 mmHg (85-104); ABG TCO2 34 mEq/L (20-26); Blood Gas Modality ASSIST CONTROL; Blood Gas VT 500 cc
[2020-02-15] MEDS: Phenylephrine 50 MG in 0.9 % Sodium Chloride 250 ML IVC SCH ×2 (04:13→23:37)
[2020-02-15] MEDS: Artificial Tears SOLN 15 ML BOTTLE BOTH EYES SCH ×6 (04:13→23:37)
[2020-02-15 04:20] LABS: Basophils # 0.1 K/mcL (0.0-0.2); Basophils % 0.5 %; Eosinophils # 0.3 K/mcL (0.0-0.6); Eosinophils % 2.1 %; Hematocrit 29.3 % (37.5-50.1); Hemoglobin 9.1 g/dL (12.9-16.9); Immature Granulocytes % 2.1 % (0-4); Lymphocytes # 0.9 K/mcL (0.6-4.6); Lymphocytes % 6.5 %; Mean Corpuscular HGB Conc 31.1 g/dL (31.6-35.5); Mean Corpuscular Hemoglobin 29.2 pg (28.0-33.3); Mean Corpuscular Volume 93.9 fL (83.0-100.0); Mean Platelet Volume 11.1 fL (9.4-12.4); Monocytes # 1.4 K/mcL (0.0-1.3); Monocytes % 9.8 %; Neutrophils # 11.4 K/mcL (1.6-8.9); Platelet Count 212 K/mcL (140-400); Red Blood Count 3.12 M/mcL (4.19-5.50); Red Cell Distribution Width 19.8 % (11.5-14.5); White Blood Count 14.5 K/mcL (4.3-11.1)
[2020-02-15] MEDS: FentaNYL (PF) 1,000 MCG/100 ML IV.SOLN IVC SCH ×3 (04:47→22:44)
[2020-02-15 04:55] LABS: BUN/Creatinine Ratio 84 (6-26); Blood Urea Nitrogen 70 mg/dL (8-23); Calcium 8.7 mg/dL (8.6-10.3); Carbon Dioxide 29 mEq/L (23-29); Chloride 104 mEq/L (98-107); Glucose 131 mg/dL (70-105); Magnesium 2.1 mg/dL (1.6-2.6); Osmolality,Calculated 306 (280-300); Phosphorous 3.3 mg/dL (2.7-4.5); Sodium 137 mEq/L (136-145); eGFR For African Americans > 60 (> 60); eGFR For Non-African Americans > 60 (> 60)
[2020-02-15] MEDS: Budesonide/Formoterol 160/4.5 1 PUFF INH IH SCH ×2 (07:18→19:57)
[2020-02-15] MEDS ORDERED: Furosemide 40 MG/4 ML VIAL IVP ONE (08:08)
[2020-02-15] MEDS ORDERED: Furosemide 40 MG/4 ML VIAL ONE (08:10)
[2020-02-15] MEDS: Meropenem 1,000 MG in 0.9 % Sodium Chloride Mini Bag 100 ML IVPB SCH ×3 (08:19→23:36)
[2020-02-15] MEDS: Chlorhexidine Rinse 15 ML MOUTHWASH MM SCH ×2 (08:22→19:42)
[2020-02-15] MEDS: Pantoprazole 40 MG VIAL IVP SCH (08:22)
[2020-02-15] MEDS: Micafungin 100 MG in 0.9 % Sodium Chloride Mini Bag 100 ML IVPB SCH (08:22)
[2020-02-15] MEDS: Midazolam HCl 50 MG/100 ML IV.SOLN IVC SCH ×2 (08:23→21:44)
[2020-02-15] MEDS: Dexmedetomidine HCl 400 MCG/100 ML MLS IVC SCH ×2 (08:52→14:37)
[2020-02-15] MEDS: Heparin 25,000UNIT/250ML 1/2NS 25,000 UNIT/250 ML IV.SOLN IVC SCH ×2 (11:25→13:22)
[2020-02-15] MEDS ORDERED: MVI IVC SCH (17:00)
[2020-02-15] MEDS ORDERED: PARENTERAL AMINO ACID 10% IVC SCH (17:00)
[2020-02-15] MEDS ORDERED: [UNRECOGNIZED DRUG - OTHER] IVC SCH (17:00)
[2020-02-15] MEDS ORDERED: CLINIMIX E IVC SCH (17:00)
[2020-02-16] MEDS: Artificial Tears SOLN 15 ML BOTTLE BOTH EYES SCH ×6 (03:17→23:40)
[2020-02-16] MEDS: Insulin LISPRO 300 UNITS/3 ML VIAL SQ SCH ×6 (03:55→23:59)
[2020-02-16 03:57] LABS: Basophils # 0.1 K/mcL (0.0-0.2); Basophils % 0.6 %; Eosinophils # 0.3 K/mcL (0.0-0.6); Eosinophils % 2.8 %; Hematocrit 30.7 % (37.5-50.1); Hemoglobin 9.5 g/dL (12.9-16.9); Immature Granulocytes % 2.4 % (0-4); Lymphocytes # 0.5 K/mcL (0.6-4.6); Lymphocytes % 5.2 %; Mean Corpuscular HGB Conc 30.9 g/dL (31.6-35.5); Mean Corpuscular Hemoglobin 29.4 pg (28.0-33.3); Mean Platelet Volume 10.9 fL (9.4-12.4); Monocytes # 1.2 K/mcL (0.0-1.3); Monocytes % 12.4 %; Neutrophils # 7.7 K/mcL (1.6-8.9); Platelet Count 188 K/mcL (140-400); Red Blood Count 3.23 M/mcL (4.19-5.50); Red Cell Distribution Width 19.8 % (11.5-14.5); Segmented Neutrophils % 76.6 %
[2020-02-16 04:02] LABS: ABG Base Excess 6 mEq/L (-2 to 3); ABG HCO3 33 mEq/L (21-27); ABG Oxygen Saturation 86 % (95-98); ABG PCO2 56 mmHg (35-45); ABG PH 7.37 pH Units (7.32-7.45); ABG PO2 54 mmHg (85-104); ABG TCO2 34 mEq/L (20-26); Blood Gas Modality AF; Blood Gas VT 500 cc
[2020-02-16 04:16] LABS: BUN/Creatinine Ratio 91 (6-26); Blood Urea Nitrogen 68 mg/dL (8-23); Calcium 9.2 mg/dL (8.6-10.3); Carbon Dioxide 31 mEq/L (23-29); Chloride 104 mEq/L (98-107); Glucose 160 mg/dL (70-105); Osmolality,Calculated 307 (280-300); Phosphorous 3.1 mg/dL (2.7-4.5); Potassium 4.9 mEq/L (3.5-5.1); Sodium 137 mEq/L (136-145); eGFR For African Americans > 60 (> 60); eGFR For Non-African Americans > 60 (> 60)
[2020-02-16 06:12] LABS: Alanine Aminotransferase 20 Units/L (7-52); Albumin 2.6 g/dL (3.5-5.7); Albumin/Globulin Ratio 0.9 (1.1-2.2); Alkaline Phosphatase 155 Units/L (34-104); Aspartate Amino Transferase 30 Units/L (13-39); Bilirubin,Direct 0.9 mg/dL (0.0-0.2); Bilirubin,Total 1.9 mg/dL (0.3-1.0); Globulin 2.8 g/dL (2.4-3.5); Total Protein 5.4 g/dL (6.4-8.9)
[2020-02-16] MEDS ORDERED: Furosemide 40 MG/4 ML VIAL IVP ONE ×2 (07:04→18:08)
[2020-02-16] MEDS: Budesonide/Formoterol 160/4.5 1 PUFF INH IH SCH ×2 (07:22→19:52)
[2020-02-16] MEDS: Chlorhexidine Rinse 15 ML MOUTHWASH MM SCH ×2 (08:06→19:46)
[2020-02-16] MEDS: Pantoprazole 40 MG VIAL IVP SCH (08:06)
[2020-02-16] MEDS: Meropenem 1,000 MG in 0.9 % Sodium Chloride Mini Bag 100 ML IVPB SCH ×3 (08:06→23:40)
[2020-02-16] MEDS: FentaNYL (PF) 1,000 MCG/100 ML IV.SOLN IVC SCH ×2 (08:34→19:13)
[2020-02-16] MEDS: Micafungin 100 MG in 0.9 % Sodium Chloride Mini Bag 100 ML IVPB SCH (09:06)
[2020-02-16] MEDS: Norepinephrine 4 MG/254 ML IV.SOLN IVC SCH (09:06)
[2020-02-16] MEDS: Heparin 25,000UNIT/250ML 1/2NS 25,000 UNIT/250 ML IV.SOLN IVC SCH (15:06)
[2020-02-16] MEDS ORDERED: CLINIMIX E IVC SCH (17:00)
[2020-02-16] MEDS ORDERED: [UNRECOGNIZED DRUG - OTHER] IVC SCH (17:00)
[2020-02-16] MEDS ORDERED: MVI IVC SCH (17:00)
[2020-02-16] MEDS ORDERED: PARENTERAL AMINO ACID 10% IVC SCH (17:00)
[2020-02-16] MEDS ORDERED: Furosemide 40 MG/4 ML VIAL ONE ×2 (17:54→22:20)
[2020-02-16] MEDS: Levalbuterol Neb 1.25 MG/3 ML IH PRN ×2 (18:14→22:02)
[2020-02-17] MEDS: Midazolam HCl 50 MG/100 ML IV.SOLN IVC SCH (00:03)
[2020-02-17] MEDS: Insulin LISPRO 300 UNITS/3 ML VIAL SQ SCH ×6 (03:38→23:54)
[2020-02-17] MEDS: Artificial Tears SOLN 15 ML BOTTLE BOTH EYES SCH ×6 (03:38→23:54)
[2020-02-17 04:19] LABS: Basophils # 0.1 K/mcL (0.0-0.2); Basophils % 0.5 %; Eosinophils # 0.3 K/mcL (0.0-0.6); Eosinophils % 2.9 %; Hematocrit 29.4 % (37.5-50.1); Hemoglobin 8.9 g/dL (12.9-16.9); Immature Granulocytes % 2.3 % (0-4); Lymphocytes # 0.6 K/mcL (0.6-4.6); Lymphocytes % 6.9 %; Mean Corpuscular HGB Conc 30.3 g/dL (31.6-35.5); Mean Corpuscular Hemoglobin 29.7 pg (28.0-33.3); Mean Platelet Volume 11.1 fL (9.4-12.4); Monocytes # 1.1 K/mcL (0.0-1.3); Monocytes % 11.6 %; Neutrophils # 7.1 K/mcL (1.6-8.9); Platelet Count 173 K/mcL (140-400); Red Cell Distribution Width 19.2 % (11.5-14.5); Segmented Neutrophils % 75.8 %; White Blood Count 9.3 K/mcL (4.3-11.1)
[2020-02-17 04:27] LABS: BUN/Creatinine Ratio 78 (6-26); Blood Urea Nitrogen 67 mg/dL (8-23); Calcium 8.9 mg/dL (8.6-10.3); Carbon Dioxide 31 mEq/L (23-29); Chloride 102 mEq/L (98-107); Glucose 148 mg/dL (70-105); Osmolality,Calculated 306 (280-300); Phosphorous 4.7 mg/dL (2.7-4.5); Potassium 4.7 mEq/L (3.5-5.1); Sodium 137 mEq/L (136-145); eGFR For African Americans > 60 (> 60); eGFR For Non-African Americans > 60 (> 60)
[2020-02-17 04:49] LABS: ABG Base Excess 8 mEq/L (-2 to 3); ABG HCO3 36 mEq/L (21-27); ABG Oxygen Saturation 100 % (95-98); ABG PCO2 71 mmHg (35-45); ABG PH 7.31 pH Units (7.32-7.45); ABG PO2 283 mmHg (85-104); ABG TCO2 38 mEq/L (20-26); Blood Gas VT 500 cc
[2020-02-17] MEDS: FentaNYL (PF) 1,000 MCG/100 ML IV.SOLN IVC SCH ×2 (06:13→20:13)
[2020-02-17] MEDS: Budesonide/Formoterol 160/4.5 1 PUFF INH IH SCH ×2 (07:37→19:42)
[2020-02-17] MEDS: Meropenem 1,000 MG in 0.9 % Sodium Chloride Mini Bag 100 ML IVPB SCH ×3 (09:42→23:54)
[2020-02-17] MEDS: Chlorhexidine Rinse 15 ML MOUTHWASH MM SCH ×2 (09:42→19:50)
[2020-02-17] MEDS: Micafungin 100 MG in 0.9 % Sodium Chloride Mini Bag 100 ML IVPB SCH (09:42)
[2020-02-17] MEDS: Pantoprazole 40 MG VIAL IVP SCH (09:43)
[2020-02-17] MEDS: Heparin 25,000UNIT/250ML 1/2NS 25,000 UNIT/250 ML IV.SOLN IVC SCH (12:00)
[2020-02-17] MEDS ORDERED: [UNRECOGNIZED DRUG - OTHER] IVC SCH ×2 (17:00)
[2020-02-17] MEDS ORDERED: PARENTERAL AMINO ACID 10% IVC SCH ×2 (17:00)
[2020-02-17] MEDS ORDERED: CLINIMIX IVC SCH ×2 (17:00)
[2020-02-17] MEDS ORDERED: MVI IVC SCH ×2 (17:00)
[2020-02-17] MEDS ORDERED: Furosemide 40 MG/4 ML VIAL IVP ONE (17:07)
[2020-02-17] MEDS ORDERED: Albumin 25% 25gram/100mL 25 GM/100 ML IV.SOLN IVPB ONE (17:07)
[2020-02-17] MEDS: Norepinephrine 4 MG/254 ML IV.SOLN IVC SCH (19:25)
[2020-02-17] MEDS: Scopolamine Patch 1.5 MG PATCH.TD72 TD SCH (19:50)
[2020-02-17] MEDS: Phenylephrine 50 MG in 0.9 % Sodium Chloride 250 ML IVC SCH ×2 (23:52)
[2020-02-18] MEDS: Dexmedetomidine HCl 400 MCG/100 ML MLS IVC SCH ×2 (02:55→11:40)
[2020-02-18] MEDS: Insulin LISPRO 300 UNITS/3 ML VIAL SQ SCH ×5 (03:26→20:33)
[2020-02-18] MEDS: Artificial Tears SOLN 15 ML BOTTLE BOTH EYES SCH ×5 (03:26→20:33)
[2020-02-18] MEDS: FentaNYL (PF) 1,000 MCG/100 ML IV.SOLN IVC SCH ×4 (03:49→22:36)
[2020-02-18 04:00] LABS: Basophils # 0.1 K/mcL (0.0-0.2); Basophils % 0.7 %; Eosinophils # 0.4 K/mcL (0.0-0.6); Eosinophils % 4.9 %; Hematocrit 30.5 % (37.5-50.1); Hemoglobin 9.2 g/dL (12.9-16.9); Lymphocytes # 0.6 K/mcL (0.6-4.6); Lymphocytes % 7.5 %; Mean Corpuscular HGB Conc 30.2 g/dL (31.6-35.5); Mean Corpuscular Hemoglobin 29.5 pg (28.0-33.3); Mean Corpuscular Volume 97.8 fL (83.0-100.0); Mean Platelet Volume 10.9 fL (9.4-12.4); Monocytes # 1.1 K/mcL (0.0-1.3); Neutrophils # 6.1 K/mcL (1.6-8.9); Platelet Count 192 K/mcL (140-400); Red Blood Count 3.12 M/mcL (4.19-5.50); Red Cell Distribution Width 19.4 % (11.5-14.5); Segmented Neutrophils % 71.9 %; White Blood Count 8.4 K/mcL (4.3-11.1)
[2020-02-18 04:19] LABS: BUN/Creatinine Ratio 81 (6-26); Blood Urea Nitrogen 64 mg/dL (8-23); Calcium 9.6 mg/dL (8.6-10.3); Carbon Dioxide 33 mEq/L (23-29); Chloride 100 mEq/L (98-107); Glucose 154 mg/dL (70-105); Osmolality,Calculated 305 (280-300); Phosphorous 3.2 mg/dL (2.7-4.5); Potassium 4.6 mEq/L (3.5-5.1); Sodium 137 mEq/L (136-145); eGFR For African Americans > 60 (> 60); eGFR For Non-African Americans > 60 (> 60)
[2020-02-18 04:51] LABS: ABG Base Excess 8 mEq/L (-2 to 3); ABG HCO3 34 mEq/L (21-27); ABG Oxygen Saturation 92 % (95-98); ABG PCO2 52 mmHg (35-45); ABG PH 7.42 pH Units (7.32-7.45); ABG PO2 63 mmHg (85-104); ABG TCO2 35 mEq/L (20-26); Blood Gas VT 550 cc
[2020-02-18] MEDS: Micafungin 100 MG in 0.9 % Sodium Chloride Mini Bag 100 ML IVPB SCH (06:58)
[2020-02-18] MEDS: Pantoprazole 40 MG VIAL IVP SCH (06:59)
[2020-02-18] MEDS: Chlorhexidine Rinse 15 ML MOUTHWASH MM SCH ×2 (06:59→20:32)
[2020-02-18] MEDS: Meropenem 1,000 MG in 0.9 % Sodium Chloride Mini Bag 100 ML IVPB SCH ×2 (06:59→16:38)
[2020-02-18] MEDS: Midazolam HCl 50 MG/100 ML IV.SOLN IVC SCH ×2 (07:38→22:06)
[2020-02-18] MEDS: Budesonide/Formoterol 160/4.5 1 PUFF INH IH SCH ×2 (07:41→19:31)
[2020-02-18] MEDS: Norepinephrine 4 MG/254 ML IV.SOLN IVC SCH (08:23)
[2020-02-18] MEDS ORDERED: Albumin 25% 25gram/100mL 25 GM/100 ML IV.SOLN IVPB ONE (15:30)
[2020-02-18] MEDS: *HR* Midazolam HCl 2 MG/2 ML VIAL IVP PRN ×3 (16:46→20:49)
[2020-02-18] MEDS ORDERED: [UNRECOGNIZED DRUG - OTHER] IVC SCH (17:00)
[2020-02-18] MEDS ORDERED: Furosemide 40 MG/4 ML VIAL IVP ONE (17:00)
[2020-02-18] MEDS ORDERED: PARENTERAL AMINO ACID 10% IVC SCH (17:00)
[2020-02-18] MEDS ORDERED: CLINIMIX IVC SCH (17:00)
[2020-02-18] MEDS ORDERED: MVI IVC SCH (17:00)
[2020-02-18] MEDS: *HR* Heparin 5,000 UNIT/ML VIAL SQ SCH (18:06)
[2020-02-19] MEDS: Artificial Tears SOLN 15 ML BOTTLE BOTH EYES SCH ×7 (00:22→23:05)
[2020-02-19] MEDS: Meropenem 1,000 MG in 0.9 % Sodium Chloride Mini Bag 100 ML IVPB SCH ×4 (00:22→23:04)
[2020-02-19] MEDS: Insulin LISPRO 300 UNITS/3 ML VIAL SQ SCH ×7 (00:22→23:10)
[2020-02-19] MEDS: Phenylephrine 50 MG in 0.9 % Sodium Chloride 250 ML IVC SCH ×2 (00:23→23:04)
[2020-02-19] MEDS: FentaNYL (PF) 1,000 MCG/100 ML IV.SOLN IVC SCH ×3 (03:11→22:13)
[2020-02-19 03:52] LABS: Basophils % 0.4 %; Eosinophils # 0.3 K/mcL (0.0-0.6); Eosinophils % 3.9 %; Hematocrit 28.3 % (37.5-50.1); Hemoglobin 8.7 g/dL (12.9-16.9); Immature Granulocytes % 1.2 % (0-4); Lymphocytes # 0.6 K/mcL (0.6-4.6); Lymphocytes % 8.3 %; Mean Corpuscular HGB Conc 30.7 g/dL (31.6-35.5); Mean Corpuscular Hemoglobin 29.8 pg (28.0-33.3); Mean Corpuscular Volume 96.9 fL (83.0-100.0); Mean Platelet Volume 10.6 fL (9.4-12.4); Monocytes # 0.9 K/mcL (0.0-1.3); Monocytes % 12.7 %; Neutrophils # 5.3 K/mcL (1.6-8.9); Platelet Count 173 K/mcL (140-400); Red Blood Count 2.92 M/mcL (4.19-5.50); Red Cell Distribution Width 18.9 % (11.5-14.5); Segmented Neutrophils % 73.5 %; White Blood Count 7.3 K/mcL (4.3-11.1)
[2020-02-19 04:12] LABS: Alanine Aminotransferase 26 Units/L (7-52); Albumin 2.8 g/dL (3.5-5.7); Albumin/Globulin Ratio 1.1 (1.1-2.2); Alkaline Phosphatase 182 Units/L (34-104); Aspartate Amino Transferase 41 Units/L (13-39); BUN/Creatinine Ratio 91 (6-26); Bilirubin,Direct 0.6 mg/dL (0.0-0.2); Bilirubin,Indirect 0.8 mg/dL (0.0-1.0); Bilirubin,Total 1.4 mg/dL (0.3-1.0); Blood Urea Nitrogen 71 mg/dL (8-23); Calcium 9.4 mg/dL (8.6-10.3); Carbon Dioxide 33 mEq/L (23-29); Chloride 100 mEq/L (98-107); Globulin 2.6 g/dL (2.4-3.5); Glucose 147 mg/dL (70-105); Magnesium 2.1 mg/dL (1.6-2.6); Osmolality,Calculated 308 (280-300); Phosphorous 2.6 mg/dL (2.7-4.5); Potassium 4.5 mEq/L (3.5-5.1); Sodium 137 mEq/L (136-145); Total Protein 5.4 g/dL (6.4-8.9); Triglycerides 93 mg/dL (< 150); eGFR For African Americans > 60 (> 60); eGFR For Non-African Americans > 60 (> 60)
[2020-02-19 04:18] LABS: ABG Base Excess 7 mEq/L (-2 to 3); ABG HCO3 34 mEq/L (21-27); ABG Oxygen Saturation 93 % (95-98); ABG PCO2 58 mmHg (35-45); ABG PH 7.38 pH Units (7.32-7.45); ABG PO2 69 mmHg (85-104); ABG TCO2 36 mEq/L (20-26); Blood Gas VT 550 cc
[2020-02-19] MEDS: *HR* Heparin 5,000 UNIT/ML VIAL SQ SCH ×2 (05:45→16:05)
[2020-02-19] MEDS: Potassium Phosphate 44 MEQ in 0.9 % Sodium Chloride 250 ML IVPB PRN (05:45)
[2020-02-19] MEDS: Micafungin 100 MG in 0.9 % Sodium Chloride Mini Bag 100 ML IVPB SCH (06:47)
[2020-02-19] MEDS: Pantoprazole 40 MG VIAL IVP SCH (06:48)
[2020-02-19] MEDS: Chlorhexidine Rinse 15 ML MOUTHWASH MM SCH ×2 (06:48→19:46)
[2020-02-19] MEDS: Budesonide/Formoterol 160/4.5 1 PUFF INH IH SCH ×2 (07:11→19:45)
[2020-02-19] MEDS: Norepinephrine 4 MG/254 ML IV.SOLN IVC SCH (07:19)
[2020-02-19] MEDS: *HR* Metoprolol 5 MG/5 ML VIAL IVP PRN ×2 (08:10→17:16)
[2020-02-19] MEDS: Albumin 25% 25gram/100mL 25 GM/100 ML IV.SOLN IVPB SCH ×2 (12:04→16:59)
[2020-02-19] MEDS: Furosemide 40 MG/4 ML VIAL IVP SCH ×2 (12:08→19:46)
[2020-02-19] MEDS ORDERED: [UNRECOGNIZED DRUG - OTHER] IVC SCH (17:00)
[2020-02-19] MEDS ORDERED: PARENTERAL AMINO ACID 10% IVC SCH (17:00)
[2020-02-19] MEDS ORDERED: MVI IVC SCH (17:00)
[2020-02-19] MEDS ORDERED: CLINIMIX IVC SCH (17:00)
[2020-02-20] MEDS: *HR* Metoprolol 5 MG/5 ML VIAL IVP PRN (00:32)
[2020-02-20] MEDS: Insulin LISPRO 300 UNITS/3 ML VIAL SQ SCH ×6 (03:28→23:45)
[2020-02-20] MEDS: Artificial Tears SOLN 15 ML BOTTLE BOTH EYES SCH ×6 (03:28→23:45)
[2020-02-20 03:33] LABS: VBG Ionized Calcium 1.25 mmol/L (1.15-1.35)
[2020-02-20 03:34] LABS: Basophils # 0.1 K/mcL (0.0-0.2); Basophils % 0.6 %; Eosinophils # 0.3 K/mcL (0.0-0.6); Eosinophils % 3.3 %; Hematocrit 30.3 % (37.5-50.1); Hemoglobin 9.4 g/dL (12.9-16.9); Immature Granulocytes % 1.1 % (0-4); Lymphocytes # 0.5 K/mcL (0.6-4.6); Lymphocytes % 5.7 %; Mean Corpuscular Volume 96.8 fL (83.0-100.0); Mean Platelet Volume 10.6 fL (9.4-12.4); Monocytes # 1.3 K/mcL (0.0-1.3); Monocytes % 14.8 %; Neutrophils # 6.5 K/mcL (1.6-8.9); Platelet Count 189 K/mcL (140-400); Red Blood Count 3.13 M/mcL (4.19-5.50); Red Cell Distribution Width 19.1 % (11.5-14.5); Segmented Neutrophils % 74.5 %; White Blood Count 8.7 K/mcL (4.3-11.1)
[2020-02-20 03:54] LABS: Albumin 3.6 g/dL (3.5-5.7); Albumin/Globulin Ratio 1.4 (1.1-2.2); BUN/Creatinine Ratio 85 (6-26); Bilirubin,Direct 0.7 mg/dL (0.0-0.2); Bilirubin,Indirect 0.8 mg/dL (0.0-1.0); Bilirubin,Total 1.5 mg/dL (0.3-1.0); Blood Urea Nitrogen 70 mg/dL (8-23); Calcium 10.1 mg/dL (8.6-10.3); Carbon Dioxide 37 mEq/L (23-29); Chloride 97 mEq/L (98-107); Globulin 2.6 g/dL (2.4-3.5); Glucose 154 mg/dL (70-105); Magnesium 2.1 mg/dL (1.6-2.6); Osmolality,Calculated 312 (280-300); Phosphorous 2.9 mg/dL (2.7-4.5); Potassium 4.4 mEq/L (3.5-5.1); Sodium 139 mEq/L (136-145); Total Protein 6.2 g/dL (6.4-8.9); eGFR For African Americans > 60 (> 60); eGFR For Non-African Americans > 60 (> 60)
[2020-02-20 03:58] LABS: Prothrombin Time 11.9 Seconds (9.4-12.1)
[2020-02-20 04:35] LABS: ABG Base Excess 12 mEq/L (-2 to 3); ABG HCO3 38 mEq/L (21-27); ABG Oxygen Saturation 95 % (95-98); ABG PCO2 57 mmHg (35-45); ABG PH 7.43 pH Units (7.32-7.45); ABG PO2 76 mmHg (85-104); ABG TCO2 40 mEq/L (20-26); Blood Gas VT 550 cc
[2020-02-20] MEDS: Potassium Phosphate 44 MEQ in 0.9 % Sodium Chloride 250 ML IVPB PRN (06:11)
[2020-02-20] MEDS: Albumin 25% 25gram/100mL 25 GM/100 ML IV.SOLN IVPB SCH ×2 (06:13→17:48)
[2020-02-20] MEDS: *HR* Heparin 5,000 UNIT/ML VIAL SQ SCH ×2 (06:13→17:47)
[2020-02-20] MEDS: Budesonide/Formoterol 160/4.5 1 PUFF INH IH SCH ×2 (07:13→19:46)
[2020-02-20] MEDS: FentaNYL (PF) 1,000 MCG/100 ML IV.SOLN IVC SCH ×2 (07:30→16:55)
[2020-02-20] MEDS: Chlorhexidine Rinse 15 ML MOUTHWASH MM SCH ×2 (09:09→20:51)
[2020-02-20] MEDS: Pantoprazole 40 MG VIAL IVP SCH (09:09)
[2020-02-20] MEDS: Meropenem 1,000 MG in 0.9 % Sodium Chloride Mini Bag 100 ML IVPB SCH ×3 (09:09→23:46)
[2020-02-20] MEDS: Micafungin 100 MG in 0.9 % Sodium Chloride Mini Bag 100 ML IVPB SCH (09:09)
[2020-02-20] MEDS: Furosemide 40 MG/4 ML VIAL IVP SCH ×2 (09:09→20:51)
[2020-02-20] MEDS: Midazolam HCl 50 MG/100 ML IV.SOLN IVC SCH (11:57)
[2020-02-20] MEDS: Norepinephrine 4 MG/254 ML IV.SOLN IVC SCH (11:57)
[2020-02-20 15:19] LABS: BUN/Creatinine Ratio 85 (6-26); Blood Urea Nitrogen 68 mg/dL (8-23); Calcium 10.2 mg/dL (8.6-10.3); Carbon Dioxide 39 mEq/L (23-29); Chloride 97 mEq/L (98-107); Glucose 123 mg/dL (70-105); Osmolality,Calculated 311 (280-300); Potassium 4.9 mEq/L (3.5-5.1); Sodium 140 mEq/L (136-145); eGFR For African Americans > 60 (> 60); eGFR For Non-African Americans > 60 (> 60)
[2020-02-20] MEDS ORDERED: PARENTERAL AMINO ACID 10% IVC SCH (17:00)
[2020-02-20] MEDS ORDERED: MVI IVC SCH (17:00)
[2020-02-20] MEDS ORDERED: [UNRECOGNIZED DRUG - OTHER] IVC SCH (17:00)
[2020-02-20] MEDS ORDERED: CLINIMIX IVC SCH (17:00)
[2020-02-20] MEDS: Scopolamine Patch 1.5 MG PATCH.TD72 TD SCH (23:45)
[2020-02-20] MEDS: Phenylephrine 50 MG in 0.9 % Sodium Chloride 250 ML IVC SCH (23:46)
[2020-02-21] MEDS: Insulin LISPRO 300 UNITS/3 ML VIAL SQ SCH ×6 (03:11→23:43)
[2020-02-21] MEDS: Artificial Tears SOLN 15 ML BOTTLE BOTH EYES SCH ×6 (03:12→23:44)
[2020-02-21 03:28] LABS: VBG Ionized Calcium 1.21 mmol/L (1.15-1.35)
[2020-02-21 03:29] LABS: Basophils # 0.1 K/mcL (0.0-0.2); Basophils % 0.6 %; Eosinophils # 0.4 K/mcL (0.0-0.6); Eosinophils % 5.3 %; Hematocrit 27.8 % (37.5-50.1); Hemoglobin 8.5 g/dL (12.9-16.9); Immature Granulocytes % 0.9 % (0-4); Lymphocytes # 0.5 K/mcL (0.6-4.6); Lymphocytes % 6.2 %; Mean Corpuscular HGB Conc 30.6 g/dL (31.6-35.5); Mean Corpuscular Hemoglobin 29.8 pg (28.0-33.3); Mean Corpuscular Volume 97.5 fL (83.0-100.0); Mean Platelet Volume 10.7 fL (9.4-12.4); Monocytes # 1.2 K/mcL (0.0-1.3); Monocytes % 15.7 %; Neutrophils # 5.5 K/mcL (1.6-8.9); Platelet Count 186 K/mcL (140-400); Red Blood Count 2.85 M/mcL (4.19-5.50); Red Cell Distribution Width 18.9 % (11.5-14.5); Segmented Neutrophils % 71.3 %; White Blood Count 7.7 K/mcL (4.3-11.1)
[2020-02-21 04:12] LABS: BUN/Creatinine Ratio 80 (6-26); Blood Urea Nitrogen 68 mg/dL (8-23); Carbon Dioxide 40 mEq/L (23-29); Chloride 95 mEq/L (98-107); Glucose 113 mg/dL (70-105); Magnesium 2.1 mg/dL (1.6-2.6); Osmolality,Calculated 311 (280-300); Phosphorous 4.1 mg/dL (2.7-4.5); Potassium 4.6 mEq/L (3.5-5.1); Sodium 140 mEq/L (136-145); eGFR For African Americans > 60 (> 60); eGFR For Non-African Americans > 60 (> 60)
[2020-02-21] MEDS: FentaNYL (PF) 1,000 MCG/100 ML IV.SOLN IVC SCH ×2 (04:20→17:26)
[2020-02-21 04:25] LABS: ABG Base Excess 16 mEq/L (-2 to 3); ABG HCO3 42 mEq/L (21-27); ABG Oxygen Saturation 94 % (95-98); ABG PCO2 64 mmHg (35-45); ABG PH 7.43 pH Units (7.32-7.45); ABG PO2 72 mmHg (85-104); ABG TCO2 44 mEq/L (20-26); Blood Gas VT 450 cc
[2020-02-21] MEDS: Albumin 25% 25gram/100mL 25 GM/100 ML IV.SOLN IVPB SCH ×2 (05:11→18:21)
[2020-02-21] MEDS: *HR* Heparin 5,000 UNIT/ML VIAL SQ SCH ×2 (05:11→18:20)
[2020-02-21] MEDS: Budesonide/Formoterol 160/4.5 1 PUFF INH IH SCH ×2 (07:09→21:13)
[2020-02-21] MEDS: Micafungin 100 MG in 0.9 % Sodium Chloride Mini Bag 100 ML IVPB SCH (07:41)
[2020-02-21] MEDS: Meropenem 1,000 MG in 0.9 % Sodium Chloride Mini Bag 100 ML IVPB SCH ×3 (07:42→23:43)
[2020-02-21] MEDS: Pantoprazole 40 MG VIAL IVP SCH (07:43)
[2020-02-21] MEDS: Chlorhexidine Rinse 15 ML MOUTHWASH MM SCH ×2 (07:43→20:31)
[2020-02-21] MEDS: Furosemide 40 MG/4 ML VIAL IVP SCH ×2 (07:43→20:31)
[2020-02-21] MEDS: Norepinephrine 4 MG/254 ML IV.SOLN IVC SCH ×2 (10:34→13:02)
[2020-02-21] MEDS: Midazolam HCl 50 MG/100 ML IV.SOLN IVC SCH (10:34)
[2020-02-21] MEDS ORDERED: *HR* Metoprolol 5 MG/5 ML VIAL IVP PRN (12:40)
[2020-02-21] MEDS: *HR* Metoprolol 5 MG/5 ML VIAL IVP PRN (12:41)
[2020-02-21] MEDS ORDERED: Amiodarone Premix 360 MG/200 ML BAG IVC ONE (12:52)
[2020-02-21] MEDS ORDERED: Amiodarone Premix 150 MG/100 ML BAG IVPB ONE (12:52)
[2020-02-21] MEDS: Amiodarone Premix 360 MG/200 ML BAG IVC SCH (20:31)
[2020-02-21] MEDS: Phenylephrine 50 MG in 0.9 % Sodium Chloride 250 ML IVC SCH (23:44)
[2020-02-22] MEDS: Insulin LISPRO 300 UNITS/3 ML VIAL SQ SCH ×6 (03:35→23:53)
[2020-02-22] MEDS: FentaNYL (PF) 1,000 MCG/100 ML IV.SOLN IVC SCH ×2 (03:36→14:45)
[2020-02-22] MEDS: Artificial Tears SOLN 15 ML BOTTLE BOTH EYES SCH ×6 (03:36→23:53)
[2020-02-22 03:43] LABS: Basophils # 0.1 K/mcL (0.0-0.2); Basophils % 0.8 %; Eosinophils # 0.2 K/mcL (0.0-0.6); Eosinophils % 2.7 %; Hemoglobin 9.3 g/dL (12.9-16.9); Immature Granulocytes % 0.9 % (0-4); Lymphocytes # 0.5 K/mcL (0.6-4.6); Lymphocytes % 6.4 %; Mean Corpuscular HGB Conc 32.1 g/dL (31.6-35.5); Mean Corpuscular Hemoglobin 31.1 pg (28.0-33.3); Mean Platelet Volume 10.3 fL (9.4-12.4); Monocytes # 1.1 K/mcL (0.0-1.3); Monocytes % 13.4 %; Neutrophils # 5.9 K/mcL (1.6-8.9); Platelet Count 211 K/mcL (140-400); Red Blood Count 2.99 M/mcL (4.19-5.50); Red Cell Distribution Width 19.3 % (11.5-14.5); Segmented Neutrophils % 75.8 %; White Blood Count 7.8 K/mcL (4.3-11.1)
[2020-02-22 03:51] LABS: VBG Ionized Calcium 1.21 mmol/L (1.15-1.35)
[2020-02-22 04:02] LABS: BUN/Creatinine Ratio 71 (6-26); Blood Urea Nitrogen 67 mg/dL (8-23); Calcium 10.5 mg/dL (8.6-10.3); Carbon Dioxide 39 mEq/L (23-29); Chloride 95 mEq/L (98-107); Glucose 125 mg/dL (70-105); Magnesium 2.4 mg/dL (1.6-2.6); Osmolality,Calculated 313 (280-300); Phosphorous 4.4 mg/dL (2.7-4.5); Sodium 141 mEq/L (136-145); eGFR For African Americans > 60 (> 60); eGFR For Non-African Americans > 60 (> 60)
[2020-02-22 04:38] LABS: ABG Base Excess 13 mEq/L (-2 to 3); ABG HCO3 40 mEq/L (21-27); ABG Oxygen Saturation 94 % (95-98); ABG PCO2 65 mmHg (35-45); ABG PO2 74 mmHg (85-104); ABG TCO2 42 mEq/L (20-26); Blood Gas Modality AF; Blood Gas VT 450 cc
[2020-02-22] MEDS: *HR* Metoprolol 5 MG/5 ML VIAL IVP PRN (04:57)
[2020-02-22] MEDS: Albumin 25% 25gram/100mL 25 GM/100 ML IV.SOLN IVPB SCH ×2 (05:00→16:11)
[2020-02-22] MEDS: *HR* Heparin 5,000 UNIT/ML VIAL SQ SCH ×2 (05:00→16:20)
[2020-02-22] MEDS: Budesonide/Formoterol 160/4.5 1 PUFF INH IH SCH ×2 (07:30→21:05)
[2020-02-22] MEDS: Micafungin 100 MG in 0.9 % Sodium Chloride Mini Bag 100 ML IVPB SCH (07:41)
[2020-02-22] MEDS: Chlorhexidine Rinse 15 ML MOUTHWASH MM SCH ×2 (07:42→19:55)
[2020-02-22] MEDS: Furosemide 40 MG/4 ML VIAL IVP SCH ×2 (07:42→19:55)
[2020-02-22] MEDS: Meropenem 1,000 MG in 0.9 % Sodium Chloride Mini Bag 100 ML IVPB SCH ×3 (07:43→23:53)
[2020-02-22] MEDS: Pantoprazole 40 MG VIAL IVP SCH (07:43)
[2020-02-22 12:01] LABS: RBC,Pleural Fluid 5000 RBC/mcL
[2020-02-22 12:17] LABS: Total Protein,Pleural Fluid 4.2 g/dL
[2020-02-22] MEDS ORDERED: Isovue-370 500 ML BOTTLE IVP ONE (12:59)
[2020-02-22 14:56] LABS: Basophils,Pleural Fluid 0 %; Eosinophils,Pleural Fluid 0 %
[2020-02-22 14:57] LABS: Appearance of Pleural Fl Clear (Clear)
[2020-02-22] MEDS: Amiodarone Premix 360 MG/200 ML BAG IVC SCH (17:13)
[2020-02-22 19:10] LABS: Adenovirus Not Detected (Not Detect); Bordetella Pertussis Not Detected (Not Detect); Chlamydophila pneumoniae Not Detected (Not Detect); Coronavirus 229E Not Detected (Not Detect); Coronavirus HKU1 Not Detected (Not Detect); Coronavirus NL63 Not Detected (Not Detect); Coronavirus OC43 Not Detected (Not Detect); Human Metapneumovirus Not Detected (Not Detect); Human Rhinovirus/Enterovirus Not Detected (Not Detect); Influenza A Subtype 2009 H1 Not Detected (Not Detect); Influenza B Not Detected (Not Detect); Mycoplasma pneumoniae Not Detected (Not Detect); Parainfluenza Virus 1 Not Detected (Not Detect); Parainfluenza Virus 2 Not Detected (Not Detect); Parainfluenza Virus 3 Not Detected (Not Detect); Parainfluenza Virus 4 Not Detected (Not Detect); Respiratory Syncytial Virus Not Detected (Not Detect); SARS-CoV-2 Not Detected (Not Detect)
[2020-02-23] MEDS: FentaNYL (PF) 1,000 MCG/100 ML IV.SOLN IVC SCH ×3 (00:28→23:29)
[2020-02-23] MEDS: Artificial Tears SOLN 15 ML BOTTLE BOTH EYES SCH ×6 (03:15→23:27)
[2020-02-23] MEDS: Insulin LISPRO 300 UNITS/3 ML VIAL SQ SCH ×6 (03:16→23:28)
[2020-02-23 04:06] LABS: BUN/Creatinine Ratio 73 (6-26); Blood Urea Nitrogen 68 mg/dL (8-23); Calcium 10.5 mg/dL (8.6-10.3); Carbon Dioxide 37 mEq/L (23-29); Chloride 97 mEq/L (98-107); Glucose 166 mg/dL (70-105); Osmolality,Calculated 324 (280-300); Potassium 3.7 mEq/L (3.5-5.1); Sodium 145 mEq/L (136-145); eGFR For African Americans > 60 (> 60); eGFR For Non-African Americans > 60 (> 60)
[2020-02-23 04:14] LABS: Basophils # 0.1 K/mcL (0.0-0.2); Basophils % 0.4 %; Eosinophils # 0.5 K/mcL (0.0-0.6); Hematocrit 31.5 % (37.5-50.1); Hemoglobin 9.6 g/dL (12.9-16.9); Immature Granulocytes % 0.7 % (0-4); Lymphocytes # 0.5 K/mcL (0.6-4.6); Lymphocytes % 3.8 %; Mean Corpuscular HGB Conc 30.5 g/dL (31.6-35.5); Mean Corpuscular Hemoglobin 29.4 pg (28.0-33.3); Mean Corpuscular Volume 96.6 fL (83.0-100.0); Mean Platelet Volume 10.1 fL (9.4-12.4); Monocytes # 1.4 K/mcL (0.0-1.3); Platelet Count 246 K/mcL (140-400); Red Blood Count 3.26 M/mcL (4.19-5.50); Red Cell Distribution Width 19.4 % (11.5-14.5); Segmented Neutrophils % 81.1 %
[2020-02-23 04:17] LABS: White Blood Count 13.5 K/mcL (4.3-11.1)
[2020-02-23] MEDS: Albumin 25% 25gram/100mL 25 GM/100 ML IV.SOLN IVPB SCH ×2 (05:14→17:16)
[2020-02-23] MEDS: *HR* Heparin 5,000 UNIT/ML VIAL SQ SCH ×2 (05:15→17:20)
[2020-02-23] MEDS: Budesonide/Formoterol 160/4.5 1 PUFF INH IH SCH ×2 (07:25→21:29)
[2020-02-23] MEDS: Meropenem 1,000 MG in 0.9 % Sodium Chloride Mini Bag 100 ML IVPB SCH ×3 (08:45→23:28)
[2020-02-23] MEDS: Chlorhexidine Rinse 15 ML MOUTHWASH MM SCH ×2 (08:45→21:25)
[2020-02-23] MEDS: Pantoprazole 40 MG VIAL IVP SCH (08:45)
[2020-02-23] MEDS: Furosemide 40 MG/4 ML VIAL IVP SCH ×2 (08:45→21:27)
[2020-02-23] MEDS: Amiodarone Premix 360 MG/200 ML BAG IVC SCH (10:28)
[2020-02-23] MEDS: Norepinephrine 4 MG/254 ML IV.SOLN IVC SCH (10:28)
[2020-02-23 17:20] LABS: Appearance of Body Fluid Slightly Hazy (Clear); Volume of Body Fluid 22 mL
[2020-02-23] MEDS: Scopolamine Patch 1.5 MG PATCH.TD72 TD SCH (21:25)
[2020-02-23] MEDS: Levalbuterol Neb 1.25 MG/3 ML IH PRN (21:28)
[2020-02-23] MEDS: Acetylcysteine 10% 2 ML INHSOL IH SCH (21:29)
[2020-02-24] MEDS: Insulin LISPRO 300 UNITS/3 ML VIAL SQ SCH ×6 (04:17→23:32)
[2020-02-24] MEDS: Artificial Tears SOLN 15 ML BOTTLE BOTH EYES SCH ×6 (04:17→23:31)
[2020-02-24 04:59] LABS: Basophils # 0.1 K/mcL (0.0-0.2); Basophils % 0.3 %; Eosinophils # 0.6 K/mcL (0.0-0.6); Eosinophils % 4.1 %; Hematocrit 29.3 % (37.5-50.1); Hemoglobin 8.8 g/dL (12.9-16.9); Immature Granulocytes % 0.7 % (0-4); Lymphocytes # 0.7 K/mcL (0.6-4.6); Lymphocytes % 4.6 %; Mean Corpuscular Hemoglobin 29.6 pg (28.0-33.3); Mean Corpuscular Volume 98.7 fL (83.0-100.0); Mean Platelet Volume 10.4 fL (9.4-12.4); Monocytes # 1.2 K/mcL (0.0-1.3); Monocytes % 8.2 %; Platelet Count 229 K/mcL (140-400); Red Blood Count 2.97 M/mcL (4.19-5.50); Red Cell Distribution Width 19.2 % (11.5-14.5); Segmented Neutrophils % 82.1 %; White Blood Count 14.7 K/mcL (4.3-11.1)
[2020-02-24 05:00] LABS: VBG Ionized Calcium 1.21 mmol/L (1.15-1.35)
[2020-02-24 05:15] LABS: Magnesium 2.4 mg/dL (1.6-2.6)
[2020-02-24 05:17] LABS: Alanine Aminotransferase 29 Units/L (7-52); Albumin 4.2 g/dL (3.5-5.7); Albumin/Globulin Ratio 1.8 (1.1-2.2); Alkaline Phosphatase 225 Units/L (34-104); Aspartate Amino Transferase 32 Units/L (13-39); BUN/Creatinine Ratio 81 (6-26); Bilirubin,Total 1.4 mg/dL (0.3-1.0); Blood Urea Nitrogen 72 mg/dL (8-23); Calcium 10.4 mg/dL (8.6-10.3); Carbon Dioxide 38 mEq/L (23-29); Chloride 99 mEq/L (98-107); Globulin 2.4 g/dL (2.4-3.5); Glucose 153 mg/dL (70-105); Osmolality,Calculated 326 (280-300); Potassium 3.5 mEq/L (3.5-5.1); Sodium 146 mEq/L (136-145); Total Protein 6.6 g/dL (6.4-8.9); eGFR For African Americans > 60 (> 60); eGFR For Non-African Americans > 60 (> 60)
[2020-02-24] MEDS: *HR* Heparin 5,000 UNIT/ML VIAL SQ SCH ×2 (05:20→16:50)
[2020-02-24] MEDS: Albumin 25% 25gram/100mL 25 GM/100 ML IV.SOLN IVPB SCH ×2 (05:21→16:50)
[2020-02-24] MEDS: Potassium Chloride 40 MEQ/200 ML BAG IVPB PRN (05:48)
[2020-02-24] MEDS: Budesonide/Formoterol 160/4.5 1 PUFF INH IH SCH ×2 (07:31→22:26)
[2020-02-24] MEDS: Meropenem 1,000 MG in 0.9 % Sodium Chloride Mini Bag 100 ML IVPB SCH ×3 (07:48→23:47)
[2020-02-24] MEDS: Pantoprazole 40 MG VIAL IVP SCH (07:48)
[2020-02-24] MEDS: Furosemide 40 MG/4 ML VIAL IVP SCH ×2 (07:48→21:27)
[2020-02-24] MEDS: Chlorhexidine Rinse 15 ML MOUTHWASH MM SCH ×2 (07:48→21:21)
[2020-02-24] MEDS: Acetylcysteine 10% 2 ML INHSOL IH SCH ×2 (09:27→22:26)
[2020-02-24] MEDS: Levalbuterol Neb 1.25 MG/3 ML IH PRN ×2 (09:27→22:26)
[2020-02-24] MEDS: FentaNYL (PF) 1,000 MCG/100 ML IV.SOLN IVC SCH ×2 (11:40→23:00)
[2020-02-24] MEDS: Norepinephrine 4 MG/254 ML IV.SOLN IVC SCH (20:34)
[2020-02-25] MEDS: Artificial Tears SOLN 15 ML BOTTLE BOTH EYES SCH ×6 (04:11→23:54)
[2020-02-25] MEDS: Insulin LISPRO 300 UNITS/3 ML VIAL SQ SCH ×6 (04:11→23:49)
[2020-02-25 04:33] LABS: Basophils % 0.3 %; Eosinophils # 0.8 K/mcL (0.0-0.6); Eosinophils % 8.2 %; Hematocrit 29.3 % (37.5-50.1); Hemoglobin 8.6 g/dL (12.9-16.9); Immature Granulocytes % 0.6 % (0-4); Lymphocytes # 0.6 K/mcL (0.6-4.6); Lymphocytes % 6.4 %; Mean Corpuscular HGB Conc 29.4 g/dL (31.6-35.5); Mean Corpuscular Hemoglobin 29.5 pg (28.0-33.3); Mean Corpuscular Volume 100.3 fL (83.0-100.0); Mean Platelet Volume 10.4 fL (9.4-12.4); Monocytes # 0.8 K/mcL (0.0-1.3); Monocytes % 8.8 %; Neutrophils # 7.1 K/mcL (1.6-8.9); Platelet Count 231 K/mcL (140-400); Red Blood Count 2.92 M/mcL (4.19-5.50); Red Cell Distribution Width 18.7 % (11.5-14.5); Segmented Neutrophils % 75.7 %; White Blood Count 9.4 K/mcL (4.3-11.1)
[2020-02-25 04:39] LABS: ABG Base Excess 14 mEq/L (-2 to 3); ABG HCO3 41 mEq/L (21-27); ABG Oxygen Saturation 98 % (95-98); ABG PCO2 65 mmHg (35-45); ABG PH 7.41 pH Units (7.32-7.45); ABG PO2 102 mmHg (85-104); ABG TCO2 43 mEq/L (20-26); Blood Gas Modality ASSIST CONTROL; Blood Gas VT 450 cc
[2020-02-25 04:43] LABS: VBG Ionized Calcium 1.19 mmol/L (1.15-1.35)
[2020-02-25 04:52] LABS: Magnesium 2.3 mg/dL (1.6-2.6)
[2020-02-25 05:00] LABS: Alanine Aminotransferase 24 Units/L (7-52); Albumin 4.3 g/dL (3.5-5.7); Albumin/Globulin Ratio 1.9 (1.1-2.2); Alkaline Phosphatase 224 Units/L (34-104); Aspartate Amino Transferase 29 Units/L (13-39); BUN/Creatinine Ratio 80 (6-26); Bilirubin,Total 1.3 mg/dL (0.3-1.0); Blood Urea Nitrogen 71 mg/dL (8-23); Calcium 10.5 mg/dL (8.6-10.3); Carbon Dioxide 40 mEq/L (23-29); Chloride 100 mEq/L (98-107); Globulin 2.3 g/dL (2.4-3.5); Glucose 131 mg/dL (70-105); Osmolality,Calculated 327 (280-300); Potassium 4.2 mEq/L (3.5-5.1); Sodium 147 mEq/L (136-145); Total Protein 6.6 g/dL (6.4-8.9); eGFR For African Americans > 60 (> 60); eGFR For Non-African Americans > 60 (> 60)
[2020-02-25] MEDS: *HR* Heparin 5,000 UNIT/ML VIAL SQ SCH ×2 (06:16→17:12)
[2020-02-25] MEDS: Albumin 25% 25gram/100mL 25 GM/100 ML IV.SOLN IVPB SCH ×2 (06:18→17:12)
[2020-02-25] MEDS: Acetylcysteine 10% 2 ML INHSOL IH SCH ×2 (07:38→22:10)
[2020-02-25] MEDS: Budesonide/Formoterol 160/4.5 1 PUFF INH IH SCH ×2 (07:39→21:51)
[2020-02-25] MEDS: Levalbuterol Neb 1.25 MG/3 ML IH PRN ×2 (07:39→22:10)
[2020-02-25] MEDS: Pantoprazole 40 MG VIAL IVP SCH (07:50)
[2020-02-25] MEDS: Meropenem 1,000 MG in 0.9 % Sodium Chloride Mini Bag 100 ML IVPB SCH ×2 (07:50→17:12)
[2020-02-25] MEDS: Chlorhexidine Rinse 15 ML MOUTHWASH MM SCH ×2 (07:50→20:11)
[2020-02-25] MEDS: FentaNYL (PF) 1,000 MCG/100 ML IV.SOLN IVC SCH (12:22)
[2020-02-25] MEDS: Norepinephrine 4 MG/254 ML IV.SOLN IVC SCH (20:00)
[2020-02-25] MEDS ORDERED: Scopolamine Patch 1.5 MG PATCH.TD72 TD SCH (20:45)
[2020-02-25] MEDS: Scopolamine Patch 1.5 MG PATCH.TD72 TD SCH (21:30)
[2020-02-26] MEDS: Meropenem 1,000 MG in 0.9 % Sodium Chloride Mini Bag 100 ML IVPB SCH ×4 (00:53→23:44)
[2020-02-26] MEDS: Insulin LISPRO 300 UNITS/3 ML VIAL SQ SCH ×6 (03:44→23:43)
[2020-02-26] MEDS: Artificial Tears SOLN 15 ML BOTTLE BOTH EYES SCH ×6 (03:44→23:52)
[2020-02-26] MEDS: *HR* Metoprolol 5 MG/5 ML VIAL IVP PRN ×2 (04:20→21:25)
[2020-02-26 04:38] LABS: ABG Base Excess 13 mEq/L (-2 to 3); ABG HCO3 39 mEq/L (21-27); ABG Oxygen Saturation 99 % (95-98); ABG PCO2 62 mmHg (35-45); ABG PH 7.41 pH Units (7.32-7.45); ABG PO2 125 mmHg (85-104); ABG TCO2 41 mEq/L (20-26); Blood Gas Modality ASSIST CONTROL; Blood Gas VT 450 cc
[2020-02-26 04:47] LABS: Basophils % 0.5 %; Eosinophils # 0.5 K/mcL (0.0-0.6); Eosinophils % 6.1 %; Hematocrit 29.3 % (37.5-50.1); Hemoglobin 8.7 g/dL (12.9-16.9); Immature Granulocytes % 0.8 % (0-4); Lymphocytes # 0.7 K/mcL (0.6-4.6); Lymphocytes % 8.6 %; Mean Corpuscular HGB Conc 29.7 g/dL (31.6-35.5); Mean Corpuscular Hemoglobin 29.4 pg (28.0-33.3); Mean Platelet Volume 10.3 fL (9.4-12.4); Monocytes # 0.8 K/mcL (0.0-1.3); Neutrophils # 5.8 K/mcL (1.6-8.9); Platelet Count 254 K/mcL (140-400); Red Blood Count 2.96 M/mcL (4.19-5.50); Red Cell Distribution Width 18.5 % (11.5-14.5); White Blood Count 7.9 K/mcL (4.3-11.1)
[2020-02-26 04:50] LABS: VBG Ionized Calcium 1.24 mmol/L (1.15-1.35)
[2020-02-26 04:58] LABS: Alanine Aminotransferase 22 Units/L (7-52); Albumin 4.4 g/dL (3.5-5.7); Albumin/Globulin Ratio 1.9 (1.1-2.2); Alkaline Phosphatase 207 Units/L (34-104); Aspartate Amino Transferase 25 Units/L (13-39); BUN/Creatinine Ratio 84 (6-26); Bilirubin,Total 1.4 mg/dL (0.3-1.0); Blood Urea Nitrogen 65 mg/dL (8-23); Calcium 10.8 mg/dL (8.6-10.3); Carbon Dioxide 38 mEq/L (23-29); Chloride 102 mEq/L (98-107); Globulin 2.3 g/dL (2.4-3.5); Glucose 107 mg/dL (70-105); Osmolality,Calculated 321 (280-300); Potassium 4.1 mEq/L (3.5-5.1); Sodium 146 mEq/L (136-145); Total Protein 6.7 g/dL (6.4-8.9); eGFR For African Americans > 60 (> 60); eGFR For Non-African Americans > 60 (> 60)
[2020-02-26 05:00] LABS: Magnesium 2.4 mg/dL (1.6-2.6); Phosphorous 3.2 mg/dL (2.7-4.5)
[2020-02-26] MEDS: FentaNYL (PF) 1,000 MCG/100 ML IV.SOLN IVC SCH ×2 (05:15→17:30)
[2020-02-26] MEDS: *HR* Heparin 5,000 UNIT/ML VIAL SQ SCH ×2 (05:20→16:27)
[2020-02-26] MEDS: Albumin 25% 25gram/100mL 25 GM/100 ML IV.SOLN IVPB SCH ×2 (05:32→16:27)
[2020-02-26] MEDS ORDERED: *HR* Midazolam HCl 2 MG/2 ML VIAL ONE (07:31)
[2020-02-26] MEDS: Levalbuterol Neb 1.25 MG/3 ML IH PRN ×2 (07:32→19:44)
[2020-02-26] MEDS: Budesonide/Formoterol 160/4.5 1 PUFF INH IH SCH ×2 (07:32→19:44)
[2020-02-26] MEDS ORDERED: *HR* Rocuronium Bromide 50 MG/5 ML VIAL ONE (07:32)
[2020-02-26] MEDS: Acetylcysteine 10% 2 ML INHSOL IH SCH (07:32)
[2020-02-26] MEDS ORDERED: *HR* Cisatracurium 10 MG/5 ML VIAL IV ONE (07:39)
[2020-02-26] MEDS ORDERED: *HR* FentaNYL (PF) 100 MCG/2 ML VIAL ONE (08:19)
[2020-02-26] MEDS ORDERED: Lidocaine/EPI 1:100k 1% 20 ML VIAL ONE (08:38)
[2020-02-26] MEDS: Chlorhexidine Rinse 15 ML MOUTHWASH MM SCH ×2 (10:49→21:21)
[2020-02-26] MEDS: D5% in 0.45% NACL w KCl 20 MEQ/1,000 ML MLS IVC SCH ×2 (13:48→23:42)
[2020-02-26 19:21] LABS: Influenza A PCR Body Fluid NOT DETECTED; Influenza B PCR Body Fluid NOT DETECTED; RVP Body Fluid Source BAL
[2020-02-27] MEDS: Artificial Tears SOLN 15 ML BOTTLE BOTH EYES SCH ×6 (04:09→23:32)
[2020-02-27] MEDS: Insulin LISPRO 300 UNITS/3 ML VIAL SQ SCH ×6 (04:09→23:30)
[2020-02-27 04:43] LABS: ABG Base Excess 8 mEq/L (-2 to 3); ABG HCO3 34 mEq/L (21-27); ABG Oxygen Saturation 98 % (95-98); ABG PCO2 51 mmHg (35-45); ABG PH 7.43 pH Units (7.32-7.45); ABG PO2 97 mmHg (85-104); ABG TCO2 35 mEq/L (20-26); Blood Gas Modality ASSIST CONTROL; Blood Gas VT 450 cc
[2020-02-27] MEDS: *HR* Metoprolol 5 MG/5 ML VIAL IVP PRN ×3 (04:44→18:19)
[2020-02-27 04:48] LABS: VBG Ionized Calcium 1.18 mmol/L (1.15-1.35)
[2020-02-27 04:58] LABS: Magnesium 2.3 mg/dL (1.6-2.6); Phosphorous 2.4 mg/dL (2.7-4.5)
[2020-02-27] MEDS: *HR* Heparin 5,000 UNIT/ML VIAL SQ SCH (05:19)
[2020-02-27] MEDS: Albumin 25% 25gram/100mL 25 GM/100 ML IV.SOLN IVPB SCH (05:21)
[2020-02-27] MEDS: FentaNYL (PF) 1,000 MCG/100 ML IV.SOLN IVC SCH (05:24)
[2020-02-27 06:30] LABS: Basophils % 0.5 %; Eosinophils # 0.2 K/mcL (0.0-0.6); Eosinophils % 3.1 %; Immature Granulocytes % 0.6 % (0-4); Lymphocytes # 0.5 K/mcL (0.6-4.6); Lymphocytes % 7.5 %; Mean Corpuscular Hemoglobin 29.7 pg (28.0-33.3); Mean Platelet Volume 10.5 fL (9.4-12.4); Monocytes # 0.6 K/mcL (0.0-1.3); Monocytes % 9.8 %; Neutrophils # 5.1 K/mcL (1.6-8.9); Platelet Count 264 K/mcL (140-400); Red Blood Count 3.03 M/mcL (4.19-5.50); Red Cell Distribution Width 17.9 % (11.5-14.5); Segmented Neutrophils % 78.5 %; White Blood Count 6.5 K/mcL (4.3-11.1)
[2020-02-27 06:39] LABS: Alanine Aminotransferase 22 Units/L (7-52); Albumin 4.5 g/dL (3.5-5.7); Albumin/Globulin Ratio 2.1 (1.1-2.2); Alkaline Phosphatase 177 Units/L (34-104); Aspartate Amino Transferase 29 Units/L (13-39); BUN/Creatinine Ratio 67 (6-26); Bilirubin,Total 1.9 mg/dL (0.3-1.0); Blood Urea Nitrogen 48 mg/dL (8-23); Calcium 10.4 mg/dL (8.6-10.3); Carbon Dioxide 34 mEq/L (23-29); Chloride 106 mEq/L (98-107); Globulin 2.1 g/dL (2.4-3.5); Glucose 125 mg/dL (70-105); Osmolality,Calculated 316 (280-300); Potassium 4.4 mEq/L (3.5-5.1); Sodium 146 mEq/L (136-145); Total Protein 6.6 g/dL (6.4-8.9); eGFR For African Americans > 60 (> 60); eGFR For Non-African Americans > 60 (> 60)
[2020-02-27] MEDS: Budesonide/Formoterol 160/4.5 1 PUFF INH IH SCH ×2 (07:21→19:53)
[2020-02-27] MEDS: Meropenem 1,000 MG in 0.9 % Sodium Chloride Mini Bag 100 ML IVPB SCH ×2 (07:24→14:15)
[2020-02-27] MEDS: Chlorhexidine Rinse 15 ML MOUTHWASH MM SCH ×2 (07:24→21:08)
[2020-02-27] MEDS: D5% in 0.45% NACL w KCl 20 MEQ/1,000 ML MLS IVC SCH ×2 (07:33→16:00)
[2020-02-27] MEDS: Dexmedetomidine HCl 400 MCG/100 ML MLS IVC SCH (08:14)
[2020-02-27] MEDS ORDERED: *HR* Heparin 5,000 UNIT/ML VIAL IVP PRN ×2 (08:38)
[2020-02-27 09:04] LABS: Hematocrit 29.2 % (37.5-50.1); Hemoglobin 8.9 g/dL (12.9-16.9); Mean Corpuscular HGB Conc 30.5 g/dL (31.6-35.5); Mean Corpuscular Hemoglobin 30.1 pg (28.0-33.3); Mean Corpuscular Volume 98.6 fL (83.0-100.0); Mean Platelet Volume 9.6 fL (9.4-12.4); Platelet Count 249 K/mcL (140-400); Red Blood Count 2.96 M/mcL (4.19-5.50); White Blood Count 5.9 K/mcL (4.3-11.1)
[2020-02-27] MEDS: Heparin 25,000UNIT/250ML 1/2NS 25,000 UNIT/250 ML IV.SOLN IVC SCH (09:10)
[2020-02-27 09:11] LABS: INR 1.1; Prothrombin Time 12.3 Seconds (9.4-12.1)
[2020-02-27 09:14] LABS: Heparin anti-factor XA UFH 0.05 IU/mL (0.30-0.70)
[2020-02-27 13:23] LABS: RSV PCR Body Fluid NOT DETECTED
[2020-02-27] MEDS: levoFLOXacin 750 MG/150 ML 750 MG/150 ML BAG IVPB SCH (16:25)
[2020-02-27] MEDS: Norepinephrine 4 MG/254 ML IV.SOLN IVC SCH (16:29)
[2020-02-27] MEDS: metroNIDAZOLE 500 MG TABLET GTUBE SCH (21:08)
[2020-02-28] MEDS: Dexmedetomidine HCl 400 MCG/100 ML MLS IVC SCH ×2 (01:40→20:38)
[2020-02-28] MEDS: D5% in 0.45% NACL w KCl 20 MEQ/1,000 ML MLS IVC SCH (01:45)
[2020-02-28] MEDS: Insulin LISPRO 300 UNITS/3 ML VIAL SQ SCH ×6 (03:33→23:22)
[2020-02-28] MEDS: Artificial Tears SOLN 15 ML BOTTLE BOTH EYES SCH ×6 (03:34→23:22)
[2020-02-28 03:59] LABS: VBG Ionized Calcium 1.22 mmol/L (1.15-1.35)
[2020-02-28 04:05] LABS: Basophils % 0.7 %; Eosinophils # 0.2 K/mcL (0.0-0.6); Eosinophils % 3.9 %; Hematocrit 27.5 % (37.5-50.1); Hemoglobin 8.3 g/dL (12.9-16.9); Immature Granulocytes % 0.9 % (0-4); Lymphocytes # 0.5 K/mcL (0.6-4.6); Lymphocytes % 10.9 %; Mean Corpuscular HGB Conc 30.2 g/dL (31.6-35.5); Mean Corpuscular Hemoglobin 30.3 pg (28.0-33.3); Mean Corpuscular Volume 100.4 fL (83.0-100.0); Mean Platelet Volume 9.7 fL (9.4-12.4); Monocytes # 0.5 K/mcL (0.0-1.3); Monocytes % 11.8 %; Neutrophils # 3.3 K/mcL (1.6-8.9); Platelet Count 207 K/mcL (140-400); Red Blood Count 2.74 M/mcL (4.19-5.50); Red Cell Distribution Width 18.2 % (11.5-14.5); Segmented Neutrophils % 71.8 %; White Blood Count 4.6 K/mcL (4.3-11.1)
[2020-02-28 04:25] LABS: Alanine Aminotransferase 26 Units/L (7-52); Albumin/Globulin Ratio 2.2 (1.1-2.2); Alkaline Phosphatase 175 Units/L (34-104); Aspartate Amino Transferase 32 Units/L (13-39); BUN/Creatinine Ratio 59 (6-26); Bilirubin,Total 1.6 mg/dL (0.3-1.0); Blood Urea Nitrogen 43 mg/dL (8-23); Calcium 9.5 mg/dL (8.6-10.3); Carbon Dioxide 28 mEq/L (23-29); Chloride 110 mEq/L (98-107); Globulin 1.8 g/dL (2.4-3.5); Glucose 154 mg/dL (70-105); Osmolality,Calculated 316 (280-300); Potassium 3.8 mEq/L (3.5-5.1); Sodium 146 mEq/L (136-145); Total Protein 5.8 g/dL (6.4-8.9); eGFR For African Americans > 60 (> 60); eGFR For Non-African Americans > 60 (> 60)
[2020-02-28] MEDS: *HR* Metoprolol 5 MG/5 ML VIAL IVP PRN ×2 (04:42→17:00)
[2020-02-28] MEDS: Potassium Chloride 40 MEQ/200 ML BAG IVPB PRN (04:46)
[2020-02-28] MEDS: Budesonide/Formoterol 160/4.5 1 PUFF INH IH SCH ×2 (07:37→22:48)
[2020-02-28] MEDS: Heparin 25,000UNIT/250ML 1/2NS 25,000 UNIT/250 ML IV.SOLN IVC SCH (07:59)
[2020-02-28] MEDS: Chlorhexidine Rinse 15 ML MOUTHWASH MM SCH ×2 (08:58→20:38)
[2020-02-28] MEDS: metroNIDAZOLE 500 MG TABLET GTUBE SCH ×3 (08:58→20:38)
[2020-02-28] MEDS: levoFLOXacin 750 MG/150 ML 750 MG/150 ML BAG IVPB SCH (08:59)
[2020-02-28] MEDS: Apixaban 5 MG TABLET PO SCH ×2 (11:50→20:38)
[2020-02-28] MEDS: FentaNYL (PF) 1,000 MCG/100 ML IV.SOLN IVC SCH (15:43)
[2020-02-28] MEDS: Ondansetron 4 MG/2 ML VIAL IVP PRN (17:00)
[2020-02-28] MEDS ORDERED: Furosemide 20 MG/2 ML VIAL IVP ONE (17:33)
[2020-02-28] MEDS: Scopolamine Patch 1.5 MG PATCH.TD72 TD SCH (20:38)
[2020-02-29 04:16] LABS: Basophils # 0.1 K/mcL (0.0-0.2); Basophils % 0.7 %; Eosinophils # 0.3 K/mcL (0.0-0.6); Eosinophils % 4.4 %; Hematocrit 28.5 % (37.5-50.1); Hemoglobin 8.6 g/dL (12.9-16.9); Lymphocytes # 0.8 K/mcL (0.6-4.6); Lymphocytes % 11.9 %; Mean Corpuscular HGB Conc 30.2 g/dL (31.6-35.5); Mean Corpuscular Hemoglobin 29.1 pg (28.0-33.3); Mean Corpuscular Volume 96.3 fL (83.0-100.0); Mean Platelet Volume 9.8 fL (9.4-12.4); Monocytes # 0.7 K/mcL (0.0-1.3); Monocytes % 10.4 %; Neutrophils # 4.8 K/mcL (1.6-8.9); Platelet Count 258 K/mcL (140-400); Red Blood Count 2.96 M/mcL (4.19-5.50); Red Cell Distribution Width 17.7 % (11.5-14.5); Segmented Neutrophils % 71.6 %; White Blood Count 6.8 K/mcL (4.3-11.1)
[2020-02-29] MEDS: Artificial Tears SOLN 15 ML BOTTLE BOTH EYES SCH ×5 (04:19→20:04)
[2020-02-29] MEDS: Insulin LISPRO 300 UNITS/3 ML VIAL SQ SCH ×5 (04:19→20:05)
[2020-02-29 04:39] LABS: Alanine Aminotransferase 52 Units/L (7-52); Albumin/Globulin Ratio 1.7 (1.1-2.2); Alkaline Phosphatase 214 Units/L (34-104); Aspartate Amino Transferase 54 Units/L (13-39); BUN/Creatinine Ratio 53 (6-26); Bilirubin,Total 1.5 mg/dL (0.3-1.0); Blood Urea Nitrogen 41 mg/dL (8-23); Calcium 9.9 mg/dL (8.6-10.3); Carbon Dioxide 28 mEq/L (23-29); Chloride 108 mEq/L (98-107); Globulin 2.4 g/dL (2.4-3.5); Glucose 147 mg/dL (70-105); Osmolality,Calculated 309 (280-300); Sodium 143 mEq/L (136-145); Total Protein 6.4 g/dL (6.4-8.9); eGFR For African Americans > 60 (> 60); eGFR For Non-African Americans > 60 (> 60)
[2020-02-29 05:59] LABS: ABG Base Excess 5 mEq/L (-2 to 3); ABG HCO3 30 mEq/L (21-27); ABG Oxygen Saturation 98 % (95-98); ABG PCO2 45 mmHg (35-45); ABG PH 7.43 pH Units (7.32-7.45); ABG PO2 94 mmHg (85-104); ABG TCO2 31 mEq/L (20-26); Blood Gas Modality ASSIST CONTROL; Blood Gas VT 450 cc
[2020-02-29] MEDS: Budesonide/Formoterol 160/4.5 1 PUFF INH IH SCH ×2 (07:04→20:22)
[2020-02-29] MEDS: Chlorhexidine Rinse 15 ML MOUTHWASH MM SCH ×2 (07:47→20:04)
[2020-02-29] MEDS: Apixaban 5 MG TABLET PO SCH ×2 (07:47→20:04)
[2020-02-29] MEDS: metroNIDAZOLE 500 MG TABLET GTUBE SCH ×3 (07:47→20:04)
[2020-02-29] MEDS: levoFLOXacin 750 MG/150 ML 750 MG/150 ML BAG IVPB SCH (07:47)
[2020-02-29] MEDS: Furosemide 20 MG/2 ML VIAL IVP SCH (09:15)
[2020-02-29] MEDS: *HR* HYDROmorphone (PF) 1 MG/ML SYRINGE IVP PRN (11:18)
[2020-02-29] MEDS: *HR* OxyCODONE Oral Soln 5 MG/5 ML UD.LIQ GTUBE PRN (14:49)
[2020-02-29] MEDS: *HR* Metoprolol 5 MG/5 ML VIAL IVP PRN (23:29)
[2020-03-01] MEDS: *HR* OxyCODONE Oral Soln 5 MG/5 ML UD.LIQ GTUBE PRN ×3 (00:58→20:39)
[2020-03-01] MEDS: Artificial Tears SOLN 15 ML BOTTLE BOTH EYES SCH ×6 (01:27→20:40)
[2020-03-01] MEDS: Insulin LISPRO 300 UNITS/3 ML VIAL SQ SCH ×6 (01:27→20:41)
[2020-03-01] MEDS: *HR* HYDROmorphone (PF) 1 MG/ML SYRINGE IVP PRN ×2 (02:58→12:18)
[2020-03-01 04:18] LABS: Basophils # 0.1 K/mcL (0.0-0.2); Basophils % 0.9 %; Eosinophils # 0.3 K/mcL (0.0-0.6); Eosinophils % 3.9 %; Hematocrit 28.9 % (37.5-50.1); Hemoglobin 8.8 g/dL (12.9-16.9); Immature Granulocytes % 2.1 % (0-4); Lymphocytes # 0.7 K/mcL (0.6-4.6); Lymphocytes % 10.3 %; Mean Corpuscular HGB Conc 30.4 g/dL (31.6-35.5); Mean Corpuscular Hemoglobin 29.3 pg (28.0-33.3); Mean Corpuscular Volume 96.3 fL (83.0-100.0); Mean Platelet Volume 9.9 fL (9.4-12.4); Monocytes # 0.9 K/mcL (0.0-1.3); Monocytes % 12.3 %; Neutrophils # 4.9 K/mcL (1.6-8.9); Platelet Count 273 K/mcL (140-400); Red Cell Distribution Width 17.6 % (11.5-14.5); Segmented Neutrophils % 70.5 %
[2020-03-01 04:39] LABS: Alanine Aminotransferase 52 Units/L (7-52); Albumin/Globulin Ratio 1.7 (1.1-2.2); Alkaline Phosphatase 241 Units/L (34-104); Aspartate Amino Transferase 52 Units/L (13-39); BUN/Creatinine Ratio 47 (6-26); Bilirubin,Total 1.4 mg/dL (0.3-1.0); Blood Urea Nitrogen 41 mg/dL (8-23); Calcium 9.9 mg/dL (8.6-10.3); Carbon Dioxide 29 mEq/L (23-29); Chloride 106 mEq/L (98-107); Globulin 2.3 g/dL (2.4-3.5); Glucose 162 mg/dL (70-105); Osmolality,Calculated 308 (280-300); Potassium 3.7 mEq/L (3.5-5.1); Sodium 142 mEq/L (136-145); Total Protein 6.3 g/dL (6.4-8.9); eGFR For African Americans > 60 (> 60); eGFR For Non-African Americans > 60 (> 60)
[2020-03-01] MEDS: Potassium Chloride 40 MEQ/200 ML BAG IVPB PRN ×2 (05:37→06:36)
[2020-03-01] MEDS: *HR* Metoprolol 5 MG/5 ML VIAL IVP PRN ×2 (06:31→12:18)
[2020-03-01] MEDS: Furosemide 20 MG/2 ML VIAL IVP SCH (08:25)
[2020-03-01] MEDS: Dexmedetomidine HCl 400 MCG/100 ML MLS IVC SCH (08:26)
[2020-03-01] MEDS: Chlorhexidine Rinse 15 ML MOUTHWASH MM SCH ×2 (08:26→20:40)
[2020-03-01] MEDS: Apixaban 5 MG TABLET PO SCH ×2 (08:27→20:40)
[2020-03-01] MEDS: metroNIDAZOLE 500 MG TABLET GTUBE SCH ×3 (08:27→20:40)
[2020-03-01] MEDS: levoFLOXacin 750 MG/150 ML 750 MG/150 ML BAG IVPB SCH (08:27)
[2020-03-01] MEDS: Budesonide/Formoterol 160/4.5 1 PUFF INH IH SCH ×2 (09:10→20:00)
[2020-03-01 11:11] LABS: Amylase 50 Units/L (29-103); Lipase 43 Units/L (11-82)
[2020-03-01] MEDS ORDERED: *HR* LORazepam Oral Conc 2 MG/ML GTUBE PRN (16:42)
[2020-03-01] MEDS: Fluconazole 400 MG/200 ML 400 MG/200 ML BAG IVPB SCH (16:55)
[2020-03-02] MEDS: Artificial Tears SOLN 15 ML BOTTLE BOTH EYES SCH ×4 (00:08→11:40)
[2020-03-02] MEDS: Insulin LISPRO 300 UNITS/3 ML VIAL SQ SCH ×4 (00:08→11:41)
[2020-03-02] MEDS: *HR* Metoprolol 5 MG/5 ML VIAL IVP PRN ×2 (03:45→09:58)
[2020-03-02 04:17] LABS: Basophils % 0.5 %; Eosinophils # 0.2 K/mcL (0.0-0.6); Eosinophils % 2.2 %; Hematocrit 28.5 % (37.5-50.1); Hemoglobin 8.9 g/dL (12.9-16.9); Immature Granulocytes % 1.4 % (0-4); Lymphocytes # 0.8 K/mcL (0.6-4.6); Lymphocytes % 10.8 %; Mean Corpuscular HGB Conc 31.2 g/dL (31.6-35.5); Mean Corpuscular Hemoglobin 30.1 pg (28.0-33.3); Mean Corpuscular Volume 96.3 fL (83.0-100.0); Mean Platelet Volume 10.3 fL (9.4-12.4); Monocytes % 12.5 %; Neutrophils # 5.5 K/mcL (1.6-8.9); Platelet Count 278 K/mcL (140-400); Red Blood Count 2.96 M/mcL (4.19-5.50); Red Cell Distribution Width 17.6 % (11.5-14.5); Segmented Neutrophils % 72.6 %; White Blood Count 7.6 K/mcL (4.3-11.1)
[2020-03-02] MEDS: *HR* OxyCODONE Oral Soln 5 MG/5 ML UD.LIQ GTUBE PRN ×2 (05:59→15:02)
[2020-03-02] MEDS: Apixaban 5 MG TABLET PO SCH (08:44)
[2020-03-02] MEDS: levoFLOXacin 750 MG/150 ML 750 MG/150 ML BAG IVPB SCH (08:44)
[2020-03-02] MEDS: Chlorhexidine Rinse 15 ML MOUTHWASH MM SCH (08:44)
[2020-03-02] MEDS: metroNIDAZOLE 500 MG TABLET GTUBE SCH ×2 (08:44→15:02)
[2020-03-02] MEDS: Furosemide 20 MG/2 ML VIAL IVP SCH (08:44)
[2020-03-02] MEDS: Dexmedetomidine HCl 400 MCG/100 ML MLS IVC SCH (08:45)
[2020-03-02] MEDS: *HR* HYDROmorphone (PF) 1 MG/ML SYRINGE IVP PRN (09:57)
[2020-03-02] MEDS: Fluconazole 400 MG/200 ML 400 MG/200 ML BAG IVPB SCH (10:14)
[2020-03-02] MEDS: Budesonide/Formoterol 160/4.5 1 PUFF INH IH SCH (10:47)
[2020-03-02 13:05] VITALS: BP 147/100
== END 2020-03-02 15:50 | DRG 3 ==
LOC: 2NNU → SUATTDRO 22:51 → OBSVTOIN 22:51 → ICNU 01-30 15:31
PROVIDERS: ADMIT Internal Medicine; ATTEND Family Medicine
PROC: ENDOBRF (2020-02-23 13:40)

== ENCOUNTER 2020-04-05 14:51 | Inpatient (IN) ==
[2020-04-05 16:01] LABS: Basophils % 0.4 %; Eosinophils # 0.2 K/mcL (0.0-0.6); Eosinophils % 2.3 %; Hematocrit 35.5 % (37.5-50.1); Hemoglobin 11.2 g/dL (12.9-16.9); Immature Granulocytes % 0.8 % (0-4); Lymphocytes % 12.2 %; Mean Corpuscular HGB Conc 31.5 g/dL (31.6-35.5); Mean Corpuscular Hemoglobin 29.5 pg (28.0-33.3); Mean Corpuscular Volume 93.4 fL (83.0-100.0); Mean Platelet Volume 10.3 fL (9.4-12.4); Monocytes # 0.8 K/mcL (0.0-1.3); Monocytes % 10.7 %; Neutrophils # 5.7 K/mcL (1.6-8.9); Platelet Count 260 K/mcL (140-400); Red Cell Distribution Width 15.5 % (11.5-14.5); Segmented Neutrophils % 73.6 %; White Blood Count 7.8 K/mcL (4.3-11.1)
[2020-04-05 16:12] LABS: Clarity,Urine Ex.Turbid (Clear); Color,Urine Brown (Yellow)
[2020-04-05 16:14] LABS: Amorphous Sediment,Urine Many per hpf (None-Few); Bacteria,Urine Few per hpf (None-Few); RBC,Urine 0-3 per hpf (0-3); Squamous Epithelial Cell,Urine Few per hpf (None-Few); WBC,Urine 0-3 per hpf (0-3)
[2020-04-05 16:19] LABS: Alanine Aminotransferase 33 Units/L (7-52); Albumin 3.4 g/dL (3.5-5.7); Alkaline Phosphatase 129 Units/L (34-104); Aspartate Amino Transferase 24 Units/L (13-39); BUN/Creatinine Ratio 44 (6-26); Bilirubin,Total 0.6 mg/dL (0.3-1.0); Blood Urea Nitrogen 38 mg/dL (8-23); Calcium 9.3 mg/dL (8.6-10.3); Carbon Dioxide 32 mEq/L (23-29); Chloride 98 mEq/L (98-107); Globulin 3.5 g/dL (2.4-3.5); Glucose 131 mg/dL (70-105); Osmolality,Calculated 291 (280-300); Potassium 4.1 mEq/L (3.5-5.1); Sodium 135 mEq/L (136-145); Total Protein 6.9 g/dL (6.4-8.9); Troponin I < 0.03 ng/mL (< 0.04); eGFR For African Americans > 60 (> 60); eGFR For Non-African Americans > 60 (> 60)
[2020-04-05] MEDS ORDERED: Isovue-370 500 ML BOTTLE IVP ONE (17:28)
[2020-04-05] MEDS ORDERED: 0.9 % Sodium Chloride 1,000 ML IVC ONE (21:52)
[2020-04-05 22:10] LABS: Creatine Kinase 14 Units/L (30-223)
[2020-04-06] MEDS ORDERED: Naloxone 0.4 MG/ML INJ IVP PRN (00:25)
[2020-04-06] MEDS ORDERED: 0.9 % Sodium Chloride 1,000 ML IVC SCH (00:30)
[2020-04-06] MEDS ORDERED: Dextrose Gel 15 GM/37.5 ML TUBE PO PRN ×2 (06:51)
[2020-04-06] MEDS ORDERED: *HR* Dextrose 50 % in Water (Vial) 50 ML VIAL IVP PRN (06:51)
[2020-04-06] MEDS ORDERED: D5% in Water 1,000 ML IVC PRN (06:51)
[2020-04-06] MEDS: Insulin LISPRO 300 UNITS/3 ML VIAL SQ SCH ×3 (09:15→18:00)
[2020-04-06 10:28] LABS: Basophils # 0.1 K/mcL (0.0-0.2); Basophils % 0.8 %; Eosinophils # 0.2 K/mcL (0.0-0.6); Eosinophils % 3.8 %; Hematocrit 34.7 % (37.5-50.1); Hemoglobin 10.8 g/dL (12.9-16.9); Lymphocytes # 0.8 K/mcL (0.6-4.6); Mean Corpuscular HGB Conc 31.1 g/dL (31.6-35.5); Mean Platelet Volume 10.2 fL (9.4-12.4); Monocytes # 0.7 K/mcL (0.0-1.3); Neutrophils # 4.1 K/mcL (1.6-8.9); Platelet Count 223 K/mcL (140-400); Red Blood Count 3.73 M/mcL (4.19-5.50); Red Cell Distribution Width 15.6 % (11.5-14.5); Segmented Neutrophils % 68.4 %
[2020-04-06 10:48] LABS: Alanine Aminotransferase 27 Units/L (7-52); Albumin 3.1 g/dL (3.5-5.7); Albumin/Globulin Ratio 1.1 (1.1-2.2); Alkaline Phosphatase 108 Units/L (34-104); Aspartate Amino Transferase 21 Units/L (13-39); BUN/Creatinine Ratio 37 (6-26); Bilirubin,Total 0.5 mg/dL (0.3-1.0); Blood Urea Nitrogen 28 mg/dL (8-23); Carbon Dioxide 26 mEq/L (23-29); Chloride 107 mEq/L (98-107); Globulin 2.8 g/dL (2.4-3.5); Glucose 103 mg/dL (70-105); Osmolality,Calculated 296 (280-300); Potassium 4.1 mEq/L (3.5-5.1); Sodium 140 mEq/L (136-145); Total Protein 5.9 g/dL (6.4-8.9); eGFR For African Americans > 60 (> 60); eGFR For Non-African Americans > 60 (> 60)
[2020-04-07 08:11] LABS: Basophils # 0.1 K/mcL (0.0-0.2); Basophils % 0.6 %; Eosinophils # 0.3 K/mcL (0.0-0.6); Eosinophils % 3.1 %; Hemoglobin 11.2 g/dL (12.9-16.9); Immature Granulocytes % 0.7 % (0-4); Lymphocytes % 11.8 %; Mean Corpuscular HGB Conc 31.1 g/dL (31.6-35.5); Mean Corpuscular Hemoglobin 29.1 pg (28.0-33.3); Mean Corpuscular Volume 93.5 fL (83.0-100.0); Mean Platelet Volume 9.7 fL (9.4-12.4); Monocytes # 0.7 K/mcL (0.0-1.3); Monocytes % 8.6 %; Neutrophils # 6.1 K/mcL (1.6-8.9); Platelet Count 271 K/mcL (140-400); Red Blood Count 3.85 M/mcL (4.19-5.50); Red Cell Distribution Width 15.6 % (11.5-14.5); Segmented Neutrophils % 75.2 %; White Blood Count 8.1 K/mcL (4.3-11.1)
[2020-04-07 08:36] LABS: BUN/Creatinine Ratio 33 (6-26); Blood Urea Nitrogen 27 mg/dL (8-23); Calcium 9.1 mg/dL (8.6-10.3); Carbon Dioxide 28 mEq/L (23-29); Chloride 105 mEq/L (98-107); Glucose 196 mg/dL (70-105); Osmolality,Calculated 299 (280-300); Potassium 3.5 mEq/L (3.5-5.1); Sodium 139 mEq/L (136-145); eGFR For African Americans > 60 (> 60); eGFR For Non-African Americans > 60 (> 60)
[2020-04-07] MEDS ORDERED: Sulfamethoxazole/Trimeth Oral Soln 400-80mg/10 ML UDC PO SCH (09:00)
[2020-04-07] MEDS: Insulin LISPRO 300 UNITS/3 ML VIAL SQ SCH ×3 (09:47→15:49)
[2020-04-07] MEDS ORDERED: Scopolamine Patch 1.5 MG PATCH.TD72 TD SCH ×3 (11:15→12:15)
[2020-04-07] MEDS: rOPINIRole 0.25 MG TABLET GTUBE SCH ×2 (15:40→20:44)
[2020-04-07] MEDS: Sulfamethoxazole/Trimeth Oral Soln 400-80mg/10 ML UDC GTUBE SCH (20:45)
[2020-04-08 04:05] LABS: Basophils % 0.4 %; Eosinophils # 0.2 K/mcL (0.0-0.6); Eosinophils % 2.7 %; Hematocrit 36.4 % (37.5-50.1); Hemoglobin 11.4 g/dL (12.9-16.9); Immature Granulocytes % 0.5 % (0-4); Lymphocytes # 1.2 K/mcL (0.6-4.6); Mean Corpuscular HGB Conc 31.3 g/dL (31.6-35.5); Mean Corpuscular Hemoglobin 29.7 pg (28.0-33.3); Mean Corpuscular Volume 94.8 fL (83.0-100.0); Mean Platelet Volume 9.8 fL (9.4-12.4); Monocytes # 0.8 K/mcL (0.0-1.3); Neutrophils # 5.9 K/mcL (1.6-8.9); Platelet Count 239 K/mcL (140-400); Red Blood Count 3.84 M/mcL (4.19-5.50); Red Cell Distribution Width 15.6 % (11.5-14.5); Segmented Neutrophils % 71.4 %; White Blood Count 8.3 K/mcL (4.3-11.1)
[2020-04-08 04:22] LABS: BUN/Creatinine Ratio 32 (6-26); Blood Urea Nitrogen 27 mg/dL (8-23); Calcium 9.1 mg/dL (8.6-10.3); Carbon Dioxide 27 mEq/L (23-29); Chloride 105 mEq/L (98-107); Glucose 137 mg/dL (70-105); Osmolality,Calculated 293 (280-300); Potassium 4.3 mEq/L (3.5-5.1); Sodium 138 mEq/L (136-145); eGFR For African Americans > 60 (> 60); eGFR For Non-African Americans > 60 (> 60)
[2020-04-08] MEDS ORDERED: Ammonium Lactate 30 APPL/225 GM BOTTLE TP SCH (09:00)
[2020-04-08] MEDS ORDERED: Lactobacillus 1 EACH CAP.SPRINK GTUBE SCH (09:00)
[2020-04-08] MEDS ORDERED: Cholecalciferol (D-3) 1,000 UNIT (25MCG) TABLET PO SCH (09:00)
[2020-04-08] MEDS ORDERED: amLODIPine 5 MG TABLET GTUBE SCH (09:00)
[2020-04-08] MEDS ORDERED: Ascorbic Acid 500 MG TABLET GTUBE SCH (09:00)
[2020-04-08] MEDS: rOPINIRole 0.25 MG TABLET GTUBE SCH (09:01)
[2020-04-08] MEDS: Sulfamethoxazole/Trimeth Oral Soln 400-80mg/10 ML UDC GTUBE SCH (09:01)
[2020-04-08] MEDS: Insulin LISPRO 300 UNITS/3 ML VIAL SQ SCH (09:02)
[2020-04-08] MEDS ORDERED: Ondansetron 4 MG/2 ML VIAL IVP ONE (09:12)
[2020-04-08 12:48] VITALS: BP 106/70
== END 2020-04-08 13:15 | DRG 640 ==
LOC: EMEROOARM 14:51 → 2ANU 14:51 → SUATTDRO 22:48 → 2ANU 04-06 00:04
PROVIDERS: ADMIT Internal Medicine; ATTEND Family Medicine

== ENCOUNTER 2020-06-07 22:38 | Inpatient (IN) ==
[2020-06-07] MEDS ORDERED: Isovue-370 500 ML BOTTLE IVP ONE (22:50)
[2020-06-07 23:20] LABS: INR 1.2; Prothrombin Time 13.4 Seconds (9.4-12.1)
[2020-06-07 23:25] LABS: Basophils % 0.4 %; Eosinophils # 0.1 K/mcL (0.0-0.6); Eosinophils % 1.1 %; Hematocrit 39.9 % (37.5-50.1); Hemoglobin 12.6 g/dL (12.9-16.9); Immature Granulocytes % 1.1 % (0-4); Lymphocytes # 0.6 K/mcL (0.6-4.6); Lymphocytes % 7.8 %; Mean Corpuscular HGB Conc 31.6 g/dL (31.6-35.5); Mean Corpuscular Hemoglobin 27.1 pg (28.0-33.3); Mean Corpuscular Volume 85.8 fL (83.0-100.0); Mean Platelet Volume 9.8 fL (9.4-12.4); Monocytes # 0.8 K/mcL (0.0-1.3); Monocytes % 9.9 %; Neutrophils # 6.5 K/mcL (1.6-8.9); Platelet Count 277 K/mcL (140-400); Red Blood Count 4.65 M/mcL (4.19-5.50); Red Cell Distribution Width 15.5 % (11.5-14.5); Segmented Neutrophils % 79.7 %; White Blood Count 8.1 K/mcL (4.3-11.1)
[2020-06-07 23:50] LABS: Alanine Aminotransferase 45 Units/L (7-52); Albumin/Globulin Ratio 0.8 (1.1-2.2); Alkaline Phosphatase 199 Units/L (34-104); Aspartate Amino Transferase 35 Units/L (13-39); BUN/Creatinine Ratio 49 (6-26); Bilirubin,Direct 0.2 mg/dL (0.0-0.2); Bilirubin,Indirect 0.4 mg/dL (0.0-1.0); Bilirubin,Total 0.6 mg/dL (0.3-1.0); Blood Urea Nitrogen 40 mg/dL (8-23); Calcium 9.3 mg/dL (8.6-10.3); Carbon Dioxide 28 mEq/L (23-29); Chloride 99 mEq/L (98-107); Globulin 3.6 g/dL (2.4-3.5); Glucose 137 mg/dL (70-105); Lipase 32 Units/L (11-82); Osmolality,Calculated 290 (280-300); Potassium 5.2 mEq/L (3.5-5.1); Sodium 134 mEq/L (136-145); Total Protein 6.6 g/dL (6.4-8.9); eGFR For African Americans > 60 (> 60); eGFR For Non-African Americans > 60 (> 60)
[2020-06-08] LABS: Bilirubin,Urine Negative (Negative); Blood,Urine Negative (Negative); Clarity,Urine Clear (Clear); Color,Urine Yellow (Yellow); Glucose,Urine (UA) Normal (Normal); Ketones,Urine Negative (Negative); Leukocyte Esterase,Urine Negative (Negative); Nitrite,Urine Negative (Negative); Protein,Urine Trace mg/dL (Neg-Trace); Specific Gravity,Urine 1.022 (1.010-1.025); Urobilinogen,Urine Normal (Normal)
[2020-06-08] MEDS ORDERED: Vancomycin 1,500 MG/265 ML IV.SOLN IVPB ONE (01:28)
[2020-06-08] MEDS ORDERED: Piperacillin/Tazobactam 3.375 GM in 0.9 % Sodium Chloride Mini Bag 100 ML IVPB ONE (01:29)
[2020-06-08] MEDS ORDERED: Ondansetron ODT 4 MG TAB.RAPDIS SL PRN (02:07)
[2020-06-08] MEDS ORDERED: Acetaminophen 325 MG TABLET PO PRN (02:07)
[2020-06-08] MEDS ORDERED: Naloxone 0.4 MG/ML INJ IVP PRN (02:07)
[2020-06-08 02:25] LABS: Troponin I 0.06 ng/mL (< 0.04)
[2020-06-08] MEDS ORDERED: *HR* OxyCODONE Oral Soln 5 MG/5 ML UD.LIQ GTUBE PRN (04:12)
[2020-06-08] MEDS ORDERED: Insulin Regular, Human 100 UNIT/ML SUBQ SCH (04:15)
[2020-06-08] MEDS ORDERED: *HR* Dextrose 50 % in Water (Vial) 50 ML VIAL IVP PRN (04:28)
[2020-06-08] MEDS ORDERED: Dextrose Gel 15 GM/37.5 ML TUBE PO PRN ×2 (04:28)
[2020-06-08] MEDS ORDERED: D5% in Water 1,000 ML IVC PRN (04:28)
[2020-06-08 05:27] LABS: Basophils % 0.5 %; Eosinophils # 0.1 K/mcL (0.0-0.6); Eosinophils % 0.6 %; Hemoglobin 11.8 g/dL (12.9-16.9); Immature Granulocytes % 1.4 % (0-4); Lymphocytes # 0.6 K/mcL (0.6-4.6); Lymphocytes % 6.9 %; Mean Corpuscular HGB Conc 30.3 g/dL (31.6-35.5); Mean Corpuscular Volume 85.9 fL (83.0-100.0); Mean Platelet Volume 10.1 fL (9.4-12.4); Monocytes # 0.8 K/mcL (0.0-1.3); Monocytes % 10.3 %; Neutrophils # 6.5 K/mcL (1.6-8.9); Platelet Count 268 K/mcL (140-400); Red Blood Count 4.54 M/mcL (4.19-5.50); Red Cell Distribution Width 15.5 % (11.5-14.5); Segmented Neutrophils % 80.3 %; White Blood Count 8.1 K/mcL (4.3-11.1)
[2020-06-08 06:20] LABS: Magnesium 1.9 mg/dL (1.6-2.6); Phosphorous 3.5 mg/dL (2.7-4.5)
[2020-06-08] MEDS: levoFLOXacin 750 MG/150 ML 750 MG/150 ML BAG IVPB SCH (08:48)
[2020-06-08] MEDS: amLODIPine 5 MG TABLET GTUBE SCH (08:53)
[2020-06-08] MEDS: Dexamethasone 4 MG/ML VIAL IVP SCH (08:53)
[2020-06-08] MEDS: Cholecalciferol (D-3) 1,000 UNIT (25MCG) TABLET PO SCH (08:55)
[2020-06-08] MEDS: levETIRAcetam 500 MG/5 ML UDC GTUBE SCH ×2 (09:02→20:35)
[2020-06-08] MEDS: Insulin LISPRO 300 UNITS/3 ML VIAL SUBQ SCH ×3 (09:21→16:30)
[2020-06-08] MEDS: Piperacillin/Tazobactam 3.375 GM in 0.9 % Sodium Chloride Mini Bag 100 ML IVPB SCH ×2 (10:54→18:57)
[2020-06-08] MEDS: 0.9 % Sodium Chloride 1,000 ML IVC SCH (14:50)
[2020-06-09] MEDS: Piperacillin/Tazobactam 3.375 GM in 0.9 % Sodium Chloride Mini Bag 100 ML IVPB SCH ×3 (00:58→17:35)
[2020-06-09] MEDS: 0.9 % Sodium Chloride 1,000 ML IVC SCH ×4 (02:23→20:12)
[2020-06-09] MEDS: Insulin LISPRO 300 UNITS/3 ML VIAL SUBQ SCH ×5 (07:34→20:12)
[2020-06-09] MEDS: Latanoprost 2.5 ML BOTTLE BOTH EYES SCH ×2 (07:34→20:29)
[2020-06-09] MEDS: levETIRAcetam 500 MG/5 ML UDC GTUBE SCH ×2 (10:11→20:11)
[2020-06-09] MEDS: Multivit/Ca/Min/Fe/FA 1 TAB TABLET PO SCH (10:12)
[2020-06-09] MEDS: amLODIPine 5 MG TABLET GTUBE SCH (10:12)
[2020-06-09] MEDS: Cholecalciferol (D-3) 1,000 UNIT (25MCG) TABLET PO SCH (10:12)
[2020-06-09] MEDS: Dexamethasone 4 MG/ML VIAL IVP SCH (10:12)
[2020-06-09] MEDS: levoFLOXacin 750 MG/150 ML 750 MG/150 ML BAG IVPB SCH (10:14)
[2020-06-09] MEDS ORDERED: Heparin 1,000 UNITS/500 mL 500 ML ONE (11:06)
[2020-06-09 14:48] LABS: BUN/Creatinine Ratio 42 (6-26); Blood Urea Nitrogen 30 mg/dL (8-23); eGFR For African Americans > 60 (> 60); eGFR For Non-African Americans > 60 (> 60)
[2020-06-09] MEDS: Ammonium Lactate 30 APPL/225 GM BOTTLE TP SCH (15:02)
[2020-06-10] MEDS: Piperacillin/Tazobactam 3.375 GM in 0.9 % Sodium Chloride Mini Bag 100 ML IVPB SCH ×3 (02:07→16:49)
[2020-06-10] MEDS: 0.9 % Sodium Chloride 1,000 ML IVC SCH ×2 (05:46→12:31)
[2020-06-10] MEDS: Insulin LISPRO 300 UNITS/3 ML VIAL SUBQ SCH ×4 (06:59→21:42)
[2020-06-10] MEDS: amLODIPine 5 MG TABLET GTUBE SCH (09:23)
[2020-06-10] MEDS: Cholecalciferol (D-3) 1,000 UNIT (25MCG) TABLET PO SCH (09:23)
[2020-06-10] MEDS: levETIRAcetam 500 MG/5 ML UDC GTUBE SCH ×2 (09:23→21:40)
[2020-06-10] MEDS: Multivit/Ca/Min/Fe/FA 1 TAB TABLET PO SCH (09:23)
[2020-06-10] MEDS: Dexamethasone 4 MG/ML VIAL IVP SCH (09:24)
[2020-06-10] MEDS: levoFLOXacin 750 MG/150 ML 750 MG/150 ML BAG IVPB SCH (09:24)
[2020-06-10] MEDS: Ammonium Lactate 30 APPL/225 GM BOTTLE TP SCH (09:25)
[2020-06-10] MEDS: Latanoprost 2.5 ML BOTTLE BOTH EYES SCH (21:41)
[2020-06-11] MEDS: Piperacillin/Tazobactam 3.375 GM in 0.9 % Sodium Chloride Mini Bag 100 ML IVPB SCH ×3 (02:41→18:08)
[2020-06-11] MEDS: 0.9 % Sodium Chloride 1,000 ML IVC SCH ×2 (02:42→23:03)
[2020-06-11 04:33] LABS: Basophils % 0.6 %; Hematocrit 33.8 % (37.5-50.1); Immature Granulocytes % 2.9 % (0-4); Lymphocytes # 0.5 K/mcL (0.6-4.6); Lymphocytes % 7.6 %; Mean Corpuscular HGB Conc 29.9 g/dL (31.6-35.5); Mean Corpuscular Hemoglobin 26.2 pg (28.0-33.3); Mean Corpuscular Volume 87.6 fL (83.0-100.0); Mean Platelet Volume 9.7 fL (9.4-12.4); Monocytes # 0.9 K/mcL (0.0-1.3); Monocytes % 12.2 %; Neutrophils # 5.4 K/mcL (1.6-8.9); Platelet Count 238 K/mcL (140-400); Red Blood Count 3.86 M/mcL (4.19-5.50); Red Cell Distribution Width 15.3 % (11.5-14.5); Segmented Neutrophils % 76.7 %
[2020-06-11 04:34] LABS: Hemoglobin 10.1 g/dL (12.9-16.9)
[2020-06-11 04:48] LABS: BUN/Creatinine Ratio 36 (6-26); Blood Urea Nitrogen 31 mg/dL (8-23); Calcium 7.6 mg/dL (8.6-10.3); Carbon Dioxide 17 mEq/L (23-29); Chloride 109 mEq/L (98-107); Glucose 187 mg/dL (70-105); Osmolality,Calculated 289 (280-300); Potassium 4.4 mEq/L (3.5-5.1); Sodium 134 mEq/L (136-145); eGFR For African Americans > 60 (> 60); eGFR For Non-African Americans > 60 (> 60)
[2020-06-11] MEDS: *HR* Enoxaparin 40 MG/0.4 ML SYRINGE SQ SCH (06:54)
[2020-06-11] MEDS: Multivit/Ca/Min/Fe/FA 1 TAB TABLET PO SCH (08:39)
[2020-06-11] MEDS: levETIRAcetam 500 MG/5 ML UDC GTUBE SCH ×2 (08:39→23:02)
[2020-06-11] MEDS: Cholecalciferol (D-3) 1,000 UNIT (25MCG) TABLET PO SCH (08:40)
[2020-06-11] MEDS: levoFLOXacin 750 MG/150 ML 750 MG/150 ML BAG IVPB SCH (08:40)
[2020-06-11] MEDS: Dexamethasone 4 MG/ML VIAL IVP SCH (08:40)
[2020-06-11] MEDS: amLODIPine 5 MG TABLET GTUBE SCH (08:41)
[2020-06-11] MEDS: Insulin LISPRO 300 UNITS/3 ML VIAL SUBQ SCH ×3 (08:58→18:18)
[2020-06-11] MEDS: Ammonium Lactate 30 APPL/225 GM BOTTLE TP SCH (11:18)
[2020-06-11] MEDS: Latanoprost 2.5 ML BOTTLE BOTH EYES SCH (23:03)
[2020-06-12] MEDS: Insulin LISPRO 300 UNITS/3 ML VIAL SUBQ SCH ×3 (03:11→12:11)
[2020-06-12] MEDS: Piperacillin/Tazobactam 3.375 GM in 0.9 % Sodium Chloride Mini Bag 100 ML IVPB SCH ×2 (03:13→12:31)
[2020-06-12] MEDS: 0.9 % Sodium Chloride 1,000 ML IVC SCH ×2 (03:16→11:56)
[2020-06-12] MEDS: *HR* Enoxaparin 40 MG/0.4 ML SYRINGE SQ SCH (05:10)
[2020-06-12 05:50] LABS: Basophils % 0.4 %; Eosinophils % 0.1 %; Hemoglobin 9.9 g/dL (12.9-16.9); Immature Granulocytes % 3.1 % (0-4); Lymphocytes # 0.5 K/mcL (0.6-4.6); Lymphocytes % 6.7 %; Mean Corpuscular HGB Conc 30.9 g/dL (31.6-35.5); Mean Corpuscular Hemoglobin 26.1 pg (28.0-33.3); Mean Corpuscular Volume 84.2 fL (83.0-100.0); Mean Platelet Volume 9.1 fL (9.4-12.4); Monocytes # 0.8 K/mcL (0.0-1.3); Monocytes % 12.4 %; Neutrophils # 5.2 K/mcL (1.6-8.9); Platelet Count 269 K/mcL (140-400); Red Cell Distribution Width 15.1 % (11.5-14.5); Segmented Neutrophils % 77.3 %; White Blood Count 6.7 K/mcL (4.3-11.1)
[2020-06-12 06:06] LABS: BUN/Creatinine Ratio 47 (6-26); Blood Urea Nitrogen 36 mg/dL (8-23); Calcium 7.9 mg/dL (8.6-10.3); Carbon Dioxide 23 mEq/L (23-29); Chloride 109 mEq/L (98-107); Glucose 216 mg/dL (70-105); Osmolality,Calculated 299 (280-300); Sodium 137 mEq/L (136-145); eGFR For African Americans > 60 (> 60); eGFR For Non-African Americans > 60 (> 60)
[2020-06-12] MEDS: levETIRAcetam 500 MG/5 ML UDC GTUBE SCH (08:00)
[2020-06-12] MEDS: Dexamethasone 4 MG/ML VIAL IVP SCH (08:00)
[2020-06-12] MEDS: Multivit/Ca/Min/Fe/FA 1 TAB TABLET PO SCH (08:01)
[2020-06-12] MEDS: Cholecalciferol (D-3) 1,000 UNIT (25MCG) TABLET PO SCH (08:01)
[2020-06-12] MEDS: Ammonium Lactate 30 APPL/225 GM BOTTLE TP SCH (16:01)
[2020-06-12 16:38] VITALS: BP 138/70
== END 2020-06-12 17:00 | DRG 177 ==
LOC: 2NENU 22:38 → EMEROOARM 22:38 → 2NENU 06-08 02:43
PROVIDERS: ADMIT Internal Medicine; ATTEND Internal Medicine
PROC: IRDRAIN (2020-06-09 11:00)

== ENCOUNTER 2020-06-26 12:02 | Inpatient (IN) ==
[2020-06-26] MEDS ORDERED: Isovue-370 500 ML BOTTLE IVP ONE (13:50)
[2020-06-26 14:32] LABS: Basophils % 0.4 %; Eosinophils # 0.3 K/mcL (0.0-0.6); Eosinophils % 3.1 %; Hemoglobin 9.7 g/dL (12.9-16.9); Immature Granulocytes % 2.1 % (0-4); Lymphocytes # 0.8 K/mcL (0.6-4.6); Lymphocytes % 7.2 %; Mean Corpuscular HGB Conc 31.3 g/dL (31.6-35.5); Mean Corpuscular Hemoglobin 26.6 pg (28.0-33.3); Mean Corpuscular Volume 84.9 fL (83.0-100.0); Mean Platelet Volume 9.2 fL (9.4-12.4); Monocytes # 1.2 K/mcL (0.0-1.3); Platelet Count 241 K/mcL (140-400); Red Blood Count 3.65 M/mcL (4.19-5.50); Red Cell Distribution Width 17.5 % (11.5-14.5); Segmented Neutrophils % 76.2 %; White Blood Count 10.5 K/mcL (4.3-11.1)
[2020-06-26 14:48] LABS: Alanine Aminotransferase 40 Units/L (7-52); Albumin 2.8 g/dL (3.5-5.7); Alkaline Phosphatase 346 Units/L (34-104); Aspartate Amino Transferase 25 Units/L (13-39); BUN/Creatinine Ratio 48 (6-26); Bilirubin,Total 0.8 mg/dL (0.3-1.0); Blood Urea Nitrogen 30 mg/dL (8-23); Calcium 8.8 mg/dL (8.6-10.3); Carbon Dioxide 26 mEq/L (23-29); Chloride 97 mEq/L (98-107); Globulin 2.9 g/dL (2.4-3.5); Glucose 126 mg/dL (70-105); Osmolality,Calculated 276 (280-300); Potassium 4.2 mEq/L (3.5-5.1); Sodium 129 mEq/L (136-145); Total Protein 5.7 g/dL (6.4-8.9); eGFR For African Americans > 60 (> 60); eGFR For Non-African Americans > 60 (> 60)
[2020-06-26] MEDS ORDERED: 0.9 % Sodium Chloride 1,000 ML IVC ONE (16:37)
[2020-06-26] MEDS ORDERED: Acetaminophen 325 MG TABLET PO PRN (16:56)
[2020-06-26] MEDS ORDERED: Ondansetron 4 MG/2 ML VIAL IVP PRN (16:56)
[2020-06-26] MEDS ORDERED: Piperacillin/Tazobactam 3.375 GM in 0.9 % Sodium Chloride Mini Bag 100 ML IVPB ONE (16:56)
[2020-06-26] MEDS ORDERED: Dextrose Gel 15 GM/37.5 ML TUBE PO PRN ×2 (17:55)
[2020-06-26] MEDS ORDERED: *HR* Dextrose 50 % in Water (Vial) 50 ML VIAL IVP PRN (17:55)
[2020-06-26] MEDS ORDERED: D5% in Water 1,000 ML IVC PRN (17:55)
[2020-06-26] MEDS ORDERED: Ipratropium 1 PUFF INHALER IH PRN (20:00)
[2020-06-26] MEDS: levETIRAcetam 500 MG/5 ML UDC GTUBE SCH (20:15)
[2020-06-26] MEDS: Latanoprost 2.5 ML BOTTLE BOTH EYES SCH (20:16)
[2020-06-26] MEDS: *HR* OxyCODONE Immed Rel 5 MG TABLET GTUBE PRN (20:43)
[2020-06-27] MEDS ORDERED: Piperacillin/Tazobactam 3.375 GM in 0.9 % Sodium Chloride Mini Bag 100 ML IVPB SCH
[2020-06-27] MEDS: Piperacillin/Tazobactam 3.375 GM in 0.9 % Sodium Chloride Mini Bag 100 ML IVPB SCH ×3 (03:59→19:51)
[2020-06-27] MEDS: *HR* OxyCODONE Immed Rel 5 MG TABLET GTUBE PRN ×2 (04:00→10:20)
[2020-06-27 05:09] LABS: Hematocrit 29.2 % (37.5-50.1); Hemoglobin 9.1 g/dL (12.9-16.9); Mean Corpuscular HGB Conc 31.2 g/dL (31.6-35.5); Mean Corpuscular Hemoglobin 26.6 pg (28.0-33.3); Mean Corpuscular Volume 85.4 fL (83.0-100.0); Mean Platelet Volume 9.1 fL (9.4-12.4); Platelet Count 239 K/mcL (140-400); Red Blood Count 3.42 M/mcL (4.19-5.50); Red Cell Distribution Width 17.2 % (11.5-14.5); White Blood Count 11.3 K/mcL (4.3-11.1)
[2020-06-27 05:15] LABS: INR 1.2; Prothrombin Time 13.9 Seconds (9.4-12.1)
[2020-06-27 05:33] LABS: BUN/Creatinine Ratio 43 (6-26); Blood Urea Nitrogen 22 mg/dL (8-23); Calcium 8.4 mg/dL (8.6-10.3); Carbon Dioxide 24 mEq/L (23-29); Chloride 100 mEq/L (98-107); Glucose 93 mg/dL (70-105); Magnesium 1.6 mg/dL (1.6-2.6); Osmolality,Calculated 275 (280-300); Potassium 3.9 mEq/L (3.5-5.1); Sodium 131 mEq/L (136-145); eGFR For African Americans > 60 (> 60); eGFR For Non-African Americans > 60 (> 60)
[2020-06-27] MEDS: levETIRAcetam 500 MG/5 ML UDC GTUBE SCH ×2 (10:20→19:52)
[2020-06-27] MEDS ORDERED: *HR* Dextrose 50 % in Water (Vial) 50 ML VIAL IVP PRN (17:09)
[2020-06-27] MEDS ORDERED: D5% in Water 1,000 ML IVC PRN (17:09)
[2020-06-27] MEDS ORDERED: Dextrose Gel 15 GM/37.5 ML TUBE PO PRN ×2 (17:09)
[2020-06-27] MEDS: Insulin LISPRO 300 UNITS/3 ML VIAL SUBQ SCH (18:16)
[2020-06-27] MEDS: Latanoprost 2.5 ML BOTTLE BOTH EYES SCH (19:53)
[2020-06-28 03:49] LABS: Basophils % 0.6 %; Eosinophils # 0.3 K/mcL (0.0-0.6); Eosinophils % 4.4 %; Hemoglobin 9.1 g/dL (12.9-16.9); Immature Granulocytes % 2.2 % (0-4); Lymphocytes # 0.5 K/mcL (0.6-4.6); Lymphocytes % 7.8 %; Mean Corpuscular HGB Conc 30.3 g/dL (31.6-35.5); Mean Corpuscular Hemoglobin 25.9 pg (28.0-33.3); Mean Corpuscular Volume 85.2 fL (83.0-100.0); Monocytes # 0.7 K/mcL (0.0-1.3); Monocytes % 9.6 %; Neutrophils # 5.1 K/mcL (1.6-8.9); Platelet Count 243 K/mcL (140-400); Red Blood Count 3.52 M/mcL (4.19-5.50); Red Cell Distribution Width 17.2 % (11.5-14.5); Segmented Neutrophils % 75.4 %; White Blood Count 6.8 K/mcL (4.3-11.1)
[2020-06-28 03:56] LABS: Estimated Average Glucose 143 mg/dl; Hemoglobin A1C 6.6 %
[2020-06-28 04:08] LABS: BUN/Creatinine Ratio 34 (6-26); Blood Urea Nitrogen 21 mg/dL (8-23); Calcium 8.5 mg/dL (8.6-10.3); Carbon Dioxide 27 mEq/L (23-29); Chloride 103 mEq/L (98-107); Glucose 152 mg/dL (70-105); Osmolality,Calculated 286 (280-300); Phosphorous 3.4 mg/dL (2.7-4.5); Potassium 3.8 mEq/L (3.5-5.1); Sodium 135 mEq/L (136-145); Vancomycin,Trough 18 mcg/mL (5-10); eGFR For African Americans > 60 (> 60); eGFR For Non-African Americans > 60 (> 60)
[2020-06-28] MEDS: Piperacillin/Tazobactam 3.375 GM in 0.9 % Sodium Chloride Mini Bag 100 ML IVPB SCH ×3 (04:20→21:56)
[2020-06-28] MEDS: Insulin LISPRO 300 UNITS/3 ML VIAL SUBQ SCH ×4 (05:17→17:48)
[2020-06-28] MEDS: levETIRAcetam 500 MG/5 ML UDC GTUBE SCH ×2 (07:41→21:56)
[2020-06-28] MEDS: *HR* OxyCODONE Oral Soln 5 MG/5 ML UD.LIQ GTUBE PRN ×2 (12:54→21:56)
[2020-06-28] MEDS: Latanoprost 2.5 ML BOTTLE BOTH EYES SCH (21:56)
[2020-06-29] MEDS: Insulin LISPRO 300 UNITS/3 ML VIAL SUBQ SCH ×4 (00:39→17:14)
[2020-06-29] MEDS: Piperacillin/Tazobactam 3.375 GM in 0.9 % Sodium Chloride Mini Bag 100 ML IVPB SCH ×3 (04:21→20:40)
[2020-06-29] MEDS: *HR* OxyCODONE Oral Soln 5 MG/5 ML UD.LIQ GTUBE PRN ×4 (04:33→21:15)
[2020-06-29 06:10] LABS: Basophils # 0.1 K/mcL (0.0-0.2); Basophils % 0.8 %; Eosinophils # 0.4 K/mcL (0.0-0.6); Eosinophils % 6.3 %; Hematocrit 29.1 % (37.5-50.1); Immature Granulocytes % 3.9 % (0-4); Lymphocytes # 0.6 K/mcL (0.6-4.6); Lymphocytes % 10.9 %; Mean Corpuscular HGB Conc 30.9 g/dL (31.6-35.5); Mean Corpuscular Volume 87.4 fL (83.0-100.0); Monocytes # 0.7 K/mcL (0.0-1.3); Monocytes % 12.6 %; Neutrophils # 3.9 K/mcL (1.6-8.9); Platelet Count 255 K/mcL (140-400); Red Blood Count 3.33 M/mcL (4.19-5.50); Red Cell Distribution Width 17.2 % (11.5-14.5); Segmented Neutrophils % 65.5 %; White Blood Count 5.9 K/mcL (4.3-11.1)
[2020-06-29 06:28] LABS: BUN/Creatinine Ratio 41 (6-26); Blood Urea Nitrogen 24 mg/dL (8-23); Calcium 8.2 mg/dL (8.6-10.3); Carbon Dioxide 27 mEq/L (23-29); Chloride 105 mEq/L (98-107); Glucose 169 mg/dL (70-105); Magnesium 1.7 mg/dL (1.6-2.6); Osmolality,Calculated 292 (280-300); Phosphorous 2.7 mg/dL (2.7-4.5); Potassium 4.1 mEq/L (3.5-5.1); Sodium 137 mEq/L (136-145); eGFR For African Americans > 60 (> 60); eGFR For Non-African Americans > 60 (> 60)
[2020-06-29] MEDS ORDERED: 0.9 % Sodium Chloride 1,000 ML IV ONE (07:31)
[2020-06-29] MEDS: levETIRAcetam 500 MG/5 ML UDC GTUBE SCH ×2 (10:12→20:40)
[2020-06-29] MEDS: Latanoprost 2.5 ML BOTTLE BOTH EYES SCH (21:34)
[2020-06-30] MEDS: Insulin LISPRO 300 UNITS/3 ML VIAL SUBQ SCH ×4 (01:44→17:16)
[2020-06-30] MEDS: Piperacillin/Tazobactam 3.375 GM in 0.9 % Sodium Chloride Mini Bag 100 ML IVPB SCH ×3 (03:36→20:31)
[2020-06-30] MEDS: *HR* OxyCODONE Oral Soln 5 MG/5 ML UD.LIQ GTUBE PRN ×3 (03:59→20:31)
[2020-06-30 04:18] LABS: Basophils % 0.5 %; Eosinophils # 0.4 K/mcL (0.0-0.6); Eosinophils % 5.1 %; Hematocrit 31.4 % (37.5-50.1); Hemoglobin 9.2 g/dL (12.9-16.9); Immature Granulocytes % 2.3 % (0-4); Lymphocytes # 0.6 K/mcL (0.6-4.6); Lymphocytes % 7.8 %; Mean Corpuscular HGB Conc 29.3 g/dL (31.6-35.5); Mean Corpuscular Hemoglobin 25.8 pg (28.0-33.3); Monocytes # 0.9 K/mcL (0.0-1.3); Monocytes % 11.8 %; Neutrophils # 5.3 K/mcL (1.6-8.9); Platelet Count 307 K/mcL (140-400); Red Blood Count 3.57 M/mcL (4.19-5.50); Red Cell Distribution Width 17.2 % (11.5-14.5); Segmented Neutrophils % 72.5 %; White Blood Count 7.3 K/mcL (4.3-11.1)
[2020-06-30 04:35] LABS: BUN/Creatinine Ratio 39 (6-26); Blood Urea Nitrogen 24 mg/dL (8-23); Calcium 8.5 mg/dL (8.6-10.3); Carbon Dioxide 30 mEq/L (23-29); Chloride 103 mEq/L (98-107); Glucose 104 mg/dL (70-105); Magnesium 1.7 mg/dL (1.6-2.6); Osmolality,Calculated 292 (280-300); Sodium 139 mEq/L (136-145); eGFR For African Americans > 60 (> 60); eGFR For Non-African Americans > 60 (> 60)
[2020-06-30] MEDS: levETIRAcetam 500 MG/5 ML UDC GTUBE SCH ×2 (10:21→20:31)
[2020-06-30] MEDS: Latanoprost 2.5 ML BOTTLE BOTH EYES SCH (20:32)
[2020-07-01] MEDS: Insulin LISPRO 300 UNITS/3 ML VIAL SUBQ SCH ×4 (00:25→17:48)
[2020-07-01] MEDS: *HR* OxyCODONE Oral Soln 5 MG/5 ML UD.LIQ GTUBE PRN ×3 (02:45→16:07)
[2020-07-01] MEDS: Piperacillin/Tazobactam 3.375 GM in 0.9 % Sodium Chloride Mini Bag 100 ML IVPB SCH ×3 (03:05→22:56)
[2020-07-01 04:32] LABS: Basophils % 0.4 %; Eosinophils # 0.5 K/mcL (0.0-0.6); Eosinophils % 4.3 %; Hematocrit 31.8 % (37.5-50.1); Hemoglobin 9.8 g/dL (12.9-16.9); Immature Granulocytes % 1.4 % (0-4); Lymphocytes # 0.8 K/mcL (0.6-4.6); Lymphocytes % 7.4 %; Mean Corpuscular HGB Conc 30.8 g/dL (31.6-35.5); Mean Corpuscular Hemoglobin 26.8 pg (28.0-33.3); Mean Corpuscular Volume 87.1 fL (83.0-100.0); Mean Platelet Volume 9.2 fL (9.4-12.4); Monocytes # 1.3 K/mcL (0.0-1.3); Monocytes % 11.9 %; Neutrophils # 7.9 K/mcL (1.6-8.9); Platelet Count 324 K/mcL (140-400); Red Blood Count 3.65 M/mcL (4.19-5.50); Red Cell Distribution Width 17.1 % (11.5-14.5); Segmented Neutrophils % 74.6 %; White Blood Count 10.6 K/mcL (4.3-11.1)
[2020-07-01 04:47] LABS: BUN/Creatinine Ratio 40 (6-26); Blood Urea Nitrogen 23 mg/dL (8-23); Calcium 8.4 mg/dL (8.6-10.3); Carbon Dioxide 29 mEq/L (23-29); Chloride 102 mEq/L (98-107); Glucose 156 mg/dL (70-105); Magnesium 1.5 mg/dL (1.6-2.6); Osmolality,Calculated 291 (280-300); Potassium 4.1 mEq/L (3.5-5.1); Sodium 137 mEq/L (136-145); eGFR For African Americans > 60 (> 60); eGFR For Non-African Americans > 60 (> 60)
[2020-07-01] MEDS: levETIRAcetam 500 MG/5 ML UDC GTUBE SCH ×2 (09:29→22:56)
[2020-07-01] MEDS: *HR* LORazepam 0.5 MG TABLET GTUBE PRN ×2 (10:17→16:08)
[2020-07-01] MEDS ORDERED: *HR* Metoprolol 5 MG/5 ML VIAL IVP ONE (15:50)
[2020-07-01] MEDS: Latanoprost 2.5 ML BOTTLE BOTH EYES SCH (22:57)
[2020-07-02] MEDS: Insulin LISPRO 300 UNITS/3 ML VIAL SUBQ SCH ×4 (00:21→17:51)
[2020-07-02] MEDS: *HR* OxyCODONE Oral Soln 5 MG/5 ML UD.LIQ GTUBE PRN ×3 (03:52→14:22)
[2020-07-02 04:08] LABS: Basophils # 0.1 K/mcL (0.0-0.2); Basophils % 0.6 %; Eosinophils # 0.5 K/mcL (0.0-0.6); Eosinophils % 4.2 %; Hematocrit 35.5 % (37.5-50.1); Hemoglobin 10.5 g/dL (12.9-16.9); Immature Granulocytes % 3.7 % (0-4); Lymphocytes # 0.9 K/mcL (0.6-4.6); Lymphocytes % 7.9 %; Mean Corpuscular HGB Conc 29.6 g/dL (31.6-35.5); Mean Corpuscular Hemoglobin 25.9 pg (28.0-33.3); Mean Corpuscular Volume 87.7 fL (83.0-100.0); Monocytes # 1.1 K/mcL (0.0-1.3); Monocytes % 9.6 %; Neutrophils # 8.3 K/mcL (1.6-8.9); Platelet Count 350 K/mcL (140-400); Red Blood Count 4.05 M/mcL (4.19-5.50); Red Cell Distribution Width 17.5 % (11.5-14.5); White Blood Count 11.2 K/mcL (4.3-11.1)
[2020-07-02 04:28] LABS: BUN/Creatinine Ratio 38 (6-26); Blood Urea Nitrogen 24 mg/dL (8-23); Calcium 8.7 mg/dL (8.6-10.3); Carbon Dioxide 31 mEq/L (23-29); Chloride 99 mEq/L (98-107); Glucose 150 mg/dL (70-105); Magnesium 1.8 mg/dL (1.6-2.6); Osmolality,Calculated 289 (280-300); Phosphorous 2.2 mg/dL (2.7-4.5); Potassium 4.7 mEq/L (3.5-5.1); Sodium 136 mEq/L (136-145); eGFR For African Americans > 60 (> 60); eGFR For Non-African Americans > 60 (> 60)
[2020-07-02] MEDS: Piperacillin/Tazobactam 3.375 GM in 0.9 % Sodium Chloride Mini Bag 100 ML IVPB SCH ×3 (06:41→20:01)
[2020-07-02] MEDS: levETIRAcetam 500 MG/5 ML UDC GTUBE SCH ×2 (09:21→20:01)
[2020-07-02] MEDS: Latanoprost 2.5 ML BOTTLE BOTH EYES SCH (20:02)
[2020-07-03] MEDS: Insulin LISPRO 300 UNITS/3 ML VIAL SUBQ SCH ×3 (00:04→13:43)
[2020-07-03] MEDS: *HR* OxyCODONE Oral Soln 5 MG/5 ML UD.LIQ GTUBE PRN ×2 (00:17→03:46)
[2020-07-03] MEDS: Piperacillin/Tazobactam 3.375 GM in 0.9 % Sodium Chloride Mini Bag 100 ML IVPB SCH ×2 (03:35→14:02)
[2020-07-03] MEDS ORDERED: Vancomycin 1,250 MG/262.5 ML IV.SOLN IVPB SCH (04:00)
[2020-07-03 05:53] LABS: BUN/Creatinine Ratio 34 (6-26); Blood Urea Nitrogen 22 mg/dL (8-23); Carbon Dioxide 31 mEq/L (23-29); Chloride 99 mEq/L (98-107); Glucose 115 mg/dL (70-105); Magnesium 1.8 mg/dL (1.6-2.6); Osmolality,Calculated 286 (280-300); Phosphorous 3.6 mg/dL (2.7-4.5); Potassium 4.5 mEq/L (3.5-5.1); Sodium 136 mEq/L (136-145); eGFR For African Americans > 60 (> 60); eGFR For Non-African Americans > 60 (> 60)
[2020-07-03 05:56] LABS: Basophils # 0.1 K/mcL (0.0-0.2); Basophils % 1.1 %; Eosinophils # 0.6 K/mcL (0.0-0.6); Eosinophils % 6.9 %; Hematocrit 33.3 % (37.5-50.1); Hemoglobin 9.8 g/dL (12.9-16.9); Immature Granulocytes % 4.6 % (0-4); Lymphocytes % 10.8 %; Mean Corpuscular HGB Conc 29.4 g/dL (31.6-35.5); Mean Corpuscular Hemoglobin 25.7 pg (28.0-33.3); Mean Corpuscular Volume 87.4 fL (83.0-100.0); Mean Platelet Volume 9.5 fL (9.4-12.4); Monocytes # 1.2 K/mcL (0.0-1.3); Monocytes % 12.4 %; Neutrophils # 5.9 K/mcL (1.6-8.9); Platelet Count 347 K/mcL (140-400); Red Blood Count 3.81 M/mcL (4.19-5.50); Red Cell Distribution Width 17.8 % (11.5-14.5); Segmented Neutrophils % 64.2 %; White Blood Count 9.3 K/mcL (4.3-11.1)
[2020-07-03] MEDS: levETIRAcetam 500 MG/5 ML UDC GTUBE SCH (09:58)
[2020-07-03 12:29] LABS: Adenovirus Not Detected (Not Detect); Bordetella Pertussis Not Detected (Not Detect); Chlamydophila pneumoniae Not Detected (Not Detect); Coronavirus 229E Not Detected (Not Detect); Coronavirus HKU1 Not Detected (Not Detect); Coronavirus NL63 Not Detected (Not Detect); Coronavirus OC43 Not Detected (Not Detect); Human Metapneumovirus Not Detected (Not Detect); Human Rhinovirus/Enterovirus Not Detected (Not Detect); Influenza A Subtype 2009 H1 Not Detected (Not Detect); Influenza B Not Detected (Not Detect); Mycoplasma pneumoniae Not Detected (Not Detect); Parainfluenza Virus 1 Not Detected (Not Detect); Parainfluenza Virus 2 Not Detected (Not Detect); Parainfluenza Virus 3 Not Detected (Not Detect); Parainfluenza Virus 4 Not Detected (Not Detect); Respiratory Syncytial Virus Not Detected (Not Detect)
[2020-07-03 12:30] LABS: SARS-CoV-2 DETECTED (Not Detect)
[2020-07-03 16:39] VITALS: BP 113/66
== END 2020-07-03 16:47 | disposition hospice, inpatient (51) ==
LOC: EMEROOARM 12:02 → 2ANU 12:02 → SUATTDRO 17:29 → 2ANU 18:09
PROVIDERS: ADMIT Internal Medicine; ATTEND Pharmacist

== ENCOUNTER 2020-07-03 16:33 | Inpatient (IN) ==
[2020-07-03] MEDS ORDERED: polyethylene glycoL 3350 17 GM POWD.PACK GTUBE PRN (18:48)
[2020-07-03] MEDS ORDERED: Acetaminophen 325 MG TABLET PO PRN (18:48)
[2020-07-03] MEDS ORDERED: *HR* OxyCODONE Immed Rel 5 MG TABLET GTUBE PRN (18:56)
[2020-07-03] MEDS: Morphine Sulfate 2 MG/ML SYRINGE IVP PRN (23:45)
[2020-07-04] MEDS: Atropine 1% Opth Drops 100 DROP/5 ML BOTTLE SL PRN (08:09)
[2020-07-04] MEDS: Morphine Sulfate 2 MG/ML SYRINGE IVP PRN ×4 (08:09→22:47)
[2020-07-04] MEDS: *HR* LORazepam 2 MG/ML VIAL IVP PRN ×4 (08:09→21:12)
[2020-07-05] MEDS: *HR* LORazepam 2 MG/ML VIAL IVP PRN ×4 (02:30→23:36)
[2020-07-05] MEDS: Morphine Sulfate 2 MG/ML SYRINGE IVP PRN ×2 (17:02→23:35)
[2020-07-05] MEDS: Atropine 1% Opth Drops 100 DROP/5 ML BOTTLE SL PRN (23:39)
[2020-07-06] MEDS: *HR* LORazepam 2 MG/ML VIAL IVP PRN ×3 (02:55→07:08)
[2020-07-06] MEDS: Morphine Sulfate 2 MG/ML SYRINGE IVP PRN ×2 (04:35→07:08)
[2020-07-06] MEDS: Atropine 1% Opth Drops 100 DROP/5 ML BOTTLE SL PRN ×2 (08:25→14:28)
[2020-07-06 15:37] VITALS: BP 107/63
== END 2020-07-06 17:31 | disposition hospice, inpatient (51) | DRG 951 ==
LOC: 2ANU 16:50
PROVIDERS: ADMIT Internal Medicine Hospice and Palliative Medicine; ATTEND Internal Medicine Hospice and Palliative Medicine